=== PATIENT | male | born 1935 | race Two or more races ===

== ENCOUNTER → 2016-10-29 | Outpatient (CLI) | payer MEDICARE, BC ==
--- NOTE | 2016-10-29 10:38 | MR ---
EXAMINATION TYPE: MR brain and iac wo/w con DATE OF EXAM: 10/29/2016 9:40 AM COMPARISON: Prior MRI IAC January 26, 2011. HISTORY: Acoustic neuroma, left hearing loss. TECHNIQUE: Multiplanar, multisequence images of the internal auditory canals, brain and brainstem are all perfor med without and with IV contrast, utilizing 16 mL intravenous MultiHance . FINDINGS: Diffusion weighted images demonstrate no evidence of a recent infarct or other diffusion ab normality. There is no worrisome extra-axial fluid collection. There is ventricular and sulcal promi nence consistent with mild age-related cerebral atrophy with some progression from 2011 study felt pr esent. There are scattered foci of T2 hyperintensity seen throughout the white matter bilaterally. Le sions are nonspecific in appearance and distribution but are felt on basis of product of chronic smal l vessel ischemic change. Progression in size and number of lesions from 2011 exam is present. There is old lacunar infarct right aceves radiata on axial image 21 noted. This is also new from 2011 exam. Midline structures demonstrate normal morphology. The craniocervical junction appears within normal limits. Post contrast images demonstrate no abnormal enhancement. The dural venous sinuses appear pa tent. The visualized sinuses are clear and the globes are intact. There is increased fluid signal bilateral mastoid air cells, right slightly more prominent than left, this is new from prior exam. The vestibulocochlear complexes appear symmetric and felt within normal limits. There is no suspicious enhancing cerebellopontine angle mass identified bilaterally. IMPRESSION: 1. 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 2. Possible new bilateral mastoiditis, clinical correlation advised. No suspicious enhancing mass is seen.
== END | disposition home or self-care (01) ==
LOC: RADMRIMAIN 08:32
PROVIDERS: ATTEND Otolaryngology
DX: D33.3 Benign neoplasm of cranial nerves (principal); G31.9 Degenerative disease of nervous system, unspecified; I67.82 Cerebral ischemia
CPT/HCPCS: 70553; A9577

== ENCOUNTER 2018-03-25 10:28 | Inpatient (IN) | payer MEDICARE, BC ==
[2018-03-25] MEDS ORDERED: SODIUM CHLORIDE 0.9% 500 ML IV STA (10:59)
--- NOTE | 2018-03-25 11:04 | ED ---
General Adult HPI - General Chief complaint: Nausea/Vomiting/Diarrhea Stated complaint: Diarrhea/Vomiting/Weakness Time Seen by Provider: 03/25/18 10:51 Source: patient, RN notes reviewed, old records reviewed Mode of arrival: ambulatory Limitations: no limitations - History of Present Illness Initial comments: 83-year-old male presents for evaluation of diarrhea and increased weakness. Patient states that over the past 2 days he's had proximally 6 episodes of diarrhea. He did take an Imodium yesterday and again this morning. His diarrhea has improved somewhat. He also has had some nausea with no vomiting. Denies any abdominal pain. He has had some low back pain which is been relieved by [id number] pain patch. No chest pain. Patient does have baseline shortness of breath secondary to pulmonary fibrosis. He has had increasing cough and shortness of breath according to his . Cough is productive of white sputum. He has home oxygen which she uses at night. Diarrhea is brown, not watery, nonbloody. No recent travel. No recent antibiotics. Patient is on Rituxan for rheumatoid arthritis and pulmonary fibrosis. Last infusion was approximately 2 weeks ago. - Related Data Home Medications Medication Instructions Recorded Confirmed Allopurinol [Zyloprim] 300 mg PO DAILY 03/25/18 03/25/18 Aspirin EC [Ecotrin Low Dose] 81 mg PO DAILY 03/25/18 03/25/18 Cholecalciferol [Vitamin D3] 1,000 unit PO DAILY 03/25/18 03/25/18 Clopidogrel [Plavix] 75 mg PO DAILY 03/25/18 03/25/18 Lovastatin [Mevacor] 40 mg PO PC-SUPPER 03/25/18 03/25/18 Metoprolol Tartrate [Lopressor] 12.5 mg PO BID 03/25/18 03/25/18 Multivit-Min/FA/Lycopen/Lutein 1 tab PO DAILY 03/25/18 03/25/18 [Centrum Silver Tablet] Pantoprazole [Protonix] 40 mg PO DAILY 03/25/18 03/25/18 Rituxan 500mg/50ml 1 dose IV Q6M 03/25/18 03/25/18 Vit C/E/Zn/Coppr/Lutein/Zeaxan 1 cap PO DAILY 03/25/18 03/25/18 [Preservision Areds 2 Softgel] predniSONE 5 mg PO DAILY 03/25/18 03/25/18 Allergies Allergy/AdvReac Type Severity Reaction Status Date / Time No Known Allergies Allergy Verified 03/25/18 10:51 Review of Systems ROS Statement: Those systems with pertinent positive or pertinent negative responses have been documented in the HPI. ROS Other: All systems not noted in ROS Statement are negative. Past Medical History Past Medical History: GERD/Reflux, Hyperlipidemia, Hypertension, Rheumatoid Arthritis (RA) Additional Past Medical History / Comment(s): Gout History of Any Multi-Drug Resistant Organisms: None Reported Past Surgical History: No Surgical Hx Reported Past Psychological History: No Psychological Hx Reported Smoking Status: Current every day smoker Past Alcohol Use History: Occasional Past Drug Use History: None Reported General Exam Limitations: no limitations General appearance: alert, in no apparent distress Head exam: Present: atraumatic, normocephalic Eye exam: Present: normal appearance, PERRL, EOMI ENT exam: Present: normal exam Neck exam: Present: normal inspection. Absent: tenderness, meningismus Respiratory exam: Present: normal lung sounds bilaterally. Absent: respiratory distress, wheezes Cardiovascular Exam: Present: regular rate, normal rhythm GI/Abdominal exam: Present: soft, normal bowel sounds. Absent: distended, tenderness, guarding, rebound, rigid, pulsatile mass Extremities exam: Present: normal inspection, normal capillary refill, other (2 + DP pulses bilaterally). Absent: pedal edema Back exam: Present: normal inspection, tenderness (Very mild lumbar tenderness to palpation.) Neurological exam: Present: alert, CN II-XII intact. Absent: motor sensory deficit Psychiatric exam: Present: normal affect, normal mood Skin exam: Present: warm, dry, intact. Absent: cyanosis, diaphoretic Course Vital Signs 03/25/18 03/25/18 03/25/18 10:38 12:42 13:12 Temperature 97.5 F L Pulse Rate 68 70 65 Respiratory 20 16 18 Rate Blood Pressure 111/74 99/55 111/57 O2 Sat by Pulse 98 95 95 Oximetry 03/25/18 13:45 Temperature 97.1 F L Pulse Rate Respiratory Rate Blood Pressure O2 Sat by Pulse Oximetry Medical Decision Making - Medical Decision Making 83-year-old male history of ulnar fibrosis and rheumatoid arthritis presenting with chief complaint of diarrhea and cough with sputum production and mild dyspnea. Laboratory studies are obtained which do show significantly elevated white blood cell count of 34,000. This is new compared to records from [facility] in December 2017 with a white blood cell count of 13, 000. Initial concern is for C. difficile although Gertrude is negative. Urinalysis showed no signs of infection. Chest x-ray does show primary fibrosis with concern for underlying pneumonia. CT of the abdomen is obtained that shows fusiform dilatation of the aorta at 3 cm and right iliac at 2.2 cm. No leak or dissection. No intra-abdominal infection. Given the patient's elevated white blood cell count, and the fact that he is immunosuppressed on Rituxan he will be admitted for suspicion of pneumonia. He received broad- spectrum antibiotics. Case discussed with Dr. Ortega who will accept admission , pulmonology will be placed on consult. - Lab Data Result diagrams: 03/25/18 11:12 03/25/18 11:12 Lab Results 03/25/18 03/25/18 03/25/18 Range/Units 11:12 11:12 12:16 WBC 34.4 H* (3.8-10.6) k/uL RBC 4.61 (4.30-5.90) m/uL Hgb 14.9 (13.0-17.5) gm/dL Hct 44.7 (39.0-53.0) % MCV 97.0 (80.0-100.0) fL MCH 32.4 (25.0-35.0) pg MCHC 33.4 (31.0-37.0) g/dL RDW 14.6 (11.5-15.5) % Plt Count 189 (150-450) k/uL Neutrophils % (Manual) 90 % Band Neutrophils % 2 % Lymphocytes % (Manual) 2 % Monocytes % (Manual) 7 % Neutrophils # (Manual) 31.60 H (1.3-7.7) k/uL Lymphocytes # (Manual) 0.69 L (1.0-4.8) k/uL Monocytes # (Manual) 2.41 H (0-1.0) k/uL Nucleated RBCs 0 (0-0) /100 WBC Manual Slide Review Performed RBC Morphology Normal Sodium 138 (137-145) mmol/L Potassium 5.3 H (3.5-5.1) mmol/L Chloride 97 L (98-107) mmol/L Carbon Dioxide 28 (22-30) mmol/L Anion Gap 13 mmol/L BUN 29 H (9-20) mg/dL Creatinine 0.99 (0.66-1.25) mg/dL Est GFR (CKD-EPI)AfAm 82 (>60 ml/min/1.73 sqM) Est GFR (CKD-EPI)NonAf 71 (>60 ml/min/1.73 sqM) Glucose 137 H (74-99) mg/dL Calcium 9.1 (8.4-10.2) mg/dL Total Bilirubin 1.5 H (0.2-1.3) mg/dL AST 30 (17-59) U/L ALT 31 (21-72) U/L Alkaline Phosphatase 98 (38-126) U/L Total Protein 6.1 L (6.3-8.2) g/dL Albumin 3.8 (3.5-5.0) g/dL Lipase 10 L (23-300) U/L Urine Color Urine Appearance (Clear) Urine pH (5.0-8.0) Ur Specific Egan (1.001-1.035) Urine Protein (Negative) Urine Glucose (UA) (Negative) Urine Ketones (Negative) Urine Blood (Negative) Urine Nitrite (Negative) Urine Bilirubin (Negative) Urine Urobilinogen (<2.0) mg/dL Ur Leukocyte Esterase (Negative) Urine WBC (0-5) /hpf Urine Mucus (None) /hpf C. difficile (EIA) Intrp Negative (Negative) 03/25/18 Range/Units 13:45 WBC (3.8-10.6) k/uL RBC (4.30-5.90) m/uL Hgb (13.0-17.5) gm/dL Hct (39.0-53.0) % MCV (80.0-100.0) fL MCH (25.0-35.0) pg MCHC (31.0-37.0) g/dL RDW (11.5-15.5) % Plt Count (150-450) k/uL Neutrophils % (Manual) % Band Neutrophils % % Lymphocytes % (Manual) % Monocytes % (Manual) % Neutrophils # (Manual) (1.3-7.7) k/uL Lymphocytes # (Manual) (1.0-4.8) k/uL Monocytes # (Manual) (0-1.0) k/uL Nucleated RBCs (0-0) /100 WBC Manual Slide Review RBC Morphology Sodium (137-145) mmol/L Potassium (3.5-5.1) mmol/L Chloride (98-107) mmol/L Carbon Dioxide (22-30) mmol/L Anion Gap mmol/L BUN (9-20) mg/dL Creatinine (0.66-1.25) mg/dL Est GFR (CKD-EPI)AfAm (>60 ml/min/1.73 sqM) Est GFR (CKD-EPI)NonAf (>60 ml/min/1.73 sqM) Glucose (74-99) mg/dL Calcium (8.4-10.2) mg/dL Total Bilirubin (0.2-1.3) mg/dL AST (17-59) U/L ALT (21-72) U/L Alkaline Phosphatase (38-126) U/L Total Protein (6.3-8.2) g/dL Albumin (3.5-5.0) g/dL Lipase (23-300) U/L Urine Color Yellow Urine Appearance Clear (Clear) Urine pH 5.5 (5.0-8.0) Ur Specific Egan 1.022 (1.001-1.035) Urine Protein 1+ H (Negative) Urine Glucose (UA) Negative (Negative) Urine Ketones Negative (Negative) Urine Blood Negative (Negative) Urine Nitrite Negative (Negative) Urine Bilirubin Negative (Negative) Urine Urobilinogen <2.0 (<2.0) mg/dL Ur Leukocyte Esterase Negative (Negative) Urine WBC 1 (0-5) /hpf Urine Mucus Rare H (None) /hpf C. difficile (EIA) Intrp (Negative) Disposition Clinical Impression: HCAP (healthcare-associated pneumonia), Leukocytosis Disposition: ADMITTED IP TO THIS [facility] Condition: Stable Is patient prescribed a controlled substance at d/c from ED?: No Referrals: Adolfo Burton MD [Primary Care Provider] - 1-2 days Decision to Admit Reason: Admit from EC Decision Date: 03/25/18 Decision Time: 15:43
[2018-03-25 11:30] LABS: HCT 44.7 % (39.0-53.0); HGB 14.9 gm/dL (13.0-17.5); MCH 32.4 pg (25.0-35.0); MCHC 33.4 g/dL (31.0-37.0); Mean Platelet Volume 6.8; Platelet Count 189 k/uL (150-450); RBC 4.61 m/uL (4.30-5.90); RDW 14.6 % (11.5-15.5)
[2018-03-25 11:34] LABS: WBC 34.4 k/uL (3.8-10.6)
[2018-03-25 11:43] LABS: Albumin 3.8 g/dL (3.5-5.0); Band Neutrophils % 2 %; Calcium 9.1 mg/dL (8.4-10.2); Lymphocytes # (M) 0.69 k/uL (1.0-4.8); Monocytes # (M) 2.41 k/uL (0-1.0); Neutrophils % (M) 90 %; Nucleated Red Blood Cells 0 /100 WBC (0-0); Potassium 5.3 mmol/L (3.5-5.1); Total Bilirubin 1.5 mg/dL (0.2-1.3); Total Cells Counted 200; Total Protein 6.1 g/dL (6.3-8.2)
--- NOTE | 2018-03-25 11:43 | XR ---
EXAMINATION TYPE: XR KUB DATE OF EXAM: 03/25/2018 COMPARISON: NONE HISTORY: Nausea and pain TECHNIQUE: One view abdominal series FINDINGS: The osseous structures are intact. The bowel gas pattern is nonspecific. Chronic interstitial lung d isease stable from chest x-ray. Previous surgery in the sternum. Hypertrophic degenerative change the spine. Surgical change overlying the left groin. Arthropathy of the hips. Diffuse osteopenia noted. Hypertrophic and degenerative change of the spine. IMPRESSION: 1. Nonspecific abdomen. 2. Correlate for pulmonary fibrosis.
[2018-03-25 13:58] LABS: Appearance,Urine Clear (Clear); Bilirubin,Urine Negative (Negative); Blood,Urine Negative (Negative); Color,Urine Yellow; Glucose,Urine (UA) Negative (Negative); Ketones,Urine Negative (Negative); Leukocyte Esterase,Urine Negative (Negative); Mucus,Urine Rare /hpf; Nitrite,Urine Negative (Negative); PH, Urine 5.5 (5.0-8.0); Protein,Urine 1+ (Negative); Specific Gravity,Urine 1.022 (1.001-1.035); Urobilinogen,Urine <2.0 mg/dL (<2.0); WBC,Urine 1 /hpf (0-5)
--- NOTE | 2018-03-25 14:31 | CT ---
EXAMINATION TYPE: CT abdomen pelvis w con DATE OF EXAM: 03/25/2018 COMPARISON: NONE INDICATION: Nausea, vomiting, and diarrhea DLP: 578.1 mGycm, Automated exposure control for dose reduction was used. CONTRAST: 100 mL of Isovue 300. Study performed without Oral Contrast TECHNIQUE: Axial images were obtained from above the diaphragm to the pubic rami in the axial plane a t 5 mm thick sections. Reconstructed images are reviewed on the computer in the coronal plane. FINDINGS: Limited CT sections are obtained the lung bases. Changes of pulmonary fibrosis throughout the bilate ral lung bases. Some pericardial calcification is present. Some coronary artery calcification is pres ent.. CT ABDOMEN: Liver: Normal Spleen: Normal Pancreas: Atrophic Adrenal glands: The adrenal glands are normal. Gallbladder: Normal Kidneys: No masses are evident. No hydronephrosis is present. No cysts are present. Delayed images were obtained through the kidneys, which remain unremarkable. Aorta: There is some fusiform prominence of the mid abdominal aorta measuring 3.0 cm. This is below t he level the renal arteries and terminates above the bifurcation. 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 Inferior vena cava: Normal. CT PELVIS: Loops of bowel within the abdomen and pelvis are normal. Study is without oral contrast causing l imitation. Appendix: Not visualized. No suspicious inflammatory changes or dilated tubular structures are eviden t. Urinary bladder: Decompressed. This has limited evaluation. Genitourinary structures: Prostate is slightly prominent. Osseous structures: No suspicious lytic or sclerotic lesions. IMPRESSIONS: 1. Pulmonary fibrosis at the bilateral lung bases. 2. Pancreas atrophy. 3. Fusiform prominence of the mid abdominal aorta measuring 3.0 cm. 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
--- NOTE | 2018-03-25 14:36 | XR ---
EXAMINATION TYPE: XR chest 2V DATE OF EXAM: 03/25/2018 COMPARISON: 04/15/2017 TECHNIQUE: PA and lateral views submitted. 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 Pulmonary vasculature slightly prominent. Heart size is normal. There is diffuse increased lung markings compatible pulmonary fibrosis. On the lateral pr ojection there is a small posterior pleural effusion or pleural thickening. Pleural-based thickening on the right with areas of subsegmental consolidation appears stable from th e prior exam. Apical asymmetric density along the upper margin of the right upper lobe is also seen. IMPRESSION: 1. Diffuse chronic pleural-parenchymal changes are similar to the prior exam and most suggestive of p ulmonary fibrosis. 2. There are areas of consolidation involving the medial margin of the right upper lobe which appears stable to prior exam as well as along the periphery of the right upper lobe. Underlying mass or pneu monia not entirely excluded correlate clinically.
[2018-03-25] MEDS ORDERED: ACETAMINOPHEN TAB 325 MG TAB PO PRN (15:36)
[2018-03-25] MEDS ORDERED: NALOXONE 0.4 MG/ML 1 ML VIAL IV PRN (15:36)
[2018-03-25] MEDS ORDERED: VANCOMYCIN IV PER PHARMACY 1 EACH MISC MISCELLANE PRN (15:36)
[2018-03-25] MEDS ORDERED: CEFEPIME 2 GM in SODIUM CHLORIDE 0.9% 50 ML IVPB STA (15:53)
[2018-03-25] MEDS ORDERED: VANCOMYCIN 1,500 MG in SODIUM CHLORIDE 0.9% 250 ML IVPB STA (16:02)
--- NOTE | 2018-03-25 17:27 | P.HPIM ---
History of Present Illness H&P Date: 03/25/18 Chief Complaint: Diarrhea Patient is a 83-year-old male with a known history of pulmonary fibrosis on home oxygen and prednisone, GERD/Reflux, Hyperlipidemia, Hypertension, Rheumatoid Arthritis (RA) came to the hospital complaints of diarrhea and increased weakness. Patient says that he had diarrhea hold the yesterday and is getting better today and felt very weak. Approximately had 6 episodes of diarrhea. He did take an Imodium yesterday and again this morning. His diarrhea has improved somewhat. He also has had some nausea with no vomiting. Denies any abdominal pain. He has had some low back pain which is been relieved by [id number] pain patch. No chest pain. Patient does have baseline shortness of breath secondary to pulmonary fibrosis. He has had increasing cough and shortness of breath according to his . Cough is productive of white sputum. denied any fever or chills. Diarrhea is brown, not watery, nonbloody. No recent travel. No recent antibiotics. Patient is on Rituxan for rheumatoid arthritis and pulmonary fibrosis. Last infusion was approximately 2 weeks ago. KUB x-ray showed nonspecific abdomen and correlate for pulmonary fibrosis Chest x-ray showed diffuse chronic pleural parenchymal changes are similar to the prior exam and most suggestive of pulmonary fibrosis. There are areas of consolidation involving the medial margin of the right upper lobe which appears stable to prior exam as well as along the periphery of the right upper lobe underlying mass or pneumonia not entirely excluded. 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 C. diff negative WBC count 34.4. Recent WBC count at the [facility] was at 13 Review of Systems Constitutional: Patient denies any fever or chills . No generalized weakness or weight loss. Abdomen: Patient denied nausea vomiting and abdominal pain. Patient did have diarrhea but improved now Cardiovascular: Patient denies any chest pain or short of breath no palpitations. Respiratory: Cough with whitish sputum production and slightly increased shortness of breath compared to baseline. Neurologic: Patient denied any numbness or tingling headache. Musculoskeletal: Patient denies any complaints of joint swelling or deformity. Skin: Negative Psychiatric: Negative Endocrine: No heat or cold intolerance. No recent weight gain. Genitourinary: No dysuria or hematuria. All other 14 point ROS negative except the above Past Medical History Past Medical History: GERD/Reflux, Hyperlipidemia, Hypertension, Rheumatoid Arthritis (RA) Additional Past Medical History / Comment(s): Gout History of Any Multi-Drug Resistant Organisms: None Reported Past Surgical History: No Surgical Hx Reported Past Psychological History: No Psychological Hx Reported Smoking Status: Current every day smoker Past Alcohol Use History: Occasional Past Drug Use History: None Reported Medications and Allergies Home Medications Medication Instructions Recorded Confirmed Type Allopurinol [Zyloprim] 300 mg PO DAILY 03/25/18 03/25/18 History Aspirin EC [Ecotrin Low Dose] 81 mg PO DAILY 03/25/18 03/25/18 History Cholecalciferol [Vitamin D3] 1,000 unit PO DAILY 03/25/18 03/25/18 History Clopidogrel [Plavix] 75 mg PO DAILY 03/25/18 03/25/18 History Lovastatin [Mevacor] 40 mg PO PC-SUPPER 03/25/18 03/25/18 History Metoprolol Tartrate [Lopressor] 12.5 mg PO BID 03/25/18 03/25/18 History Multivit-Min/FA/Lycopen/Lutein 1 tab PO DAILY 03/25/18 03/25/18 History [Centrum Silver Tablet] Pantoprazole [Protonix] 40 mg PO DAILY 03/25/18 03/25/18 History Rituxan 500mg/50ml 1 dose IV Q6M 03/25/18 03/25/18 History Vit C/E/Zn/Coppr/Lutein/Zeaxan 1 cap PO DAILY 03/25/18 03/25/18 History [Preservision Areds 2 Softgel] predniSONE 5 mg PO DAILY 03/25/18 03/25/18 History Allergies Allergy/AdvReac Type Severity Reaction Status Date / Time No Known Allergies Allergy Verified 03/25/18 10:51 Physical Exam Vitals: Vital Signs Temp Pulse Resp BP Pulse Ox 03/25/18 16:06 97.4 F L 72 18 122/59 96 03/25/18 13:45 97.1 F L 03/25/18 13:12 65 18 111/57 95 03/25/18 12:42 70 16 99/55 95 03/25/18 10:38 97.5 F L 68 20 111/74 98 Intake and Output 03/25/18 03/25/18 03/25/18 06:59 14:59 22:59 Other: Weight 79.379 kg PHYSICAL EXAMINATION: Patient is lying in the bed comfortably, no acute distress, awake alert and oriented.. HEENT: Normocephalic. Neck is supple. Pupils reactive. Nostrils clear. Oral cavity is moist. Ears reveal no drainage. Neck reveals no JVD, carotid bruits, or thyromegaly. CHEST EXAMINATION: Trachea is central. Symmetrical expansion. Bilateral fine diffuse crackles. Lung mejia clear to auscultation and percussion. CARDIAC: Normal S1, S2 with no gallops. No murmurs ABDOMEN: Soft. Bowel sounds normal. No organomegaly. No abdominal bruits. Extremities: reveal no edema. No clubbing or cyanosis Neurologically awake, alert, oriented x3 with well-coordinated movements. No focal deficits noted. Hard of hearing on the left side. Skin: No rash or skin lesions. Psychiatric: Cooperative. Nonsuicidal Musculoskeletal: No joint swelling or deformity. Normal range of motion. Results CBC & Chem 7: 03/25/18 11:12 03/25/18 11:12 Labs: Abnormal Lab Results - Last 24 Hours (Table) 03/25/18 03/25/18 03/25/18 Range/Units 11:12 11:12 13:45 WBC 34.4 H* (3.8-10.6) k/uL Neutrophils # (Manual) 31.60 H (1.3-7.7) k/uL Lymphocytes # (Manual) 0.69 L (1.0-4.8) k/uL Monocytes # (Manual) 2.41 H (0-1.0) k/uL Potassium 5.3 H (3.5-5.1) mmol/L Chloride 97 L (98-107) mmol/L BUN 29 H (9-20) mg/dL Glucose 137 H (74-99) mg/dL Total Bilirubin 1.5 H (0.2-1.3) mg/dL Total Protein 6.1 L (6.3-8.2) g/dL Lipase 10 L (23-300) U/L Urine Protein 1+ H (Negative) Urine Mucus Rare H (None) /hpf Thrombosis Risk Factor Assmnt - DVT/VTE Prophylaxis DVT/VTE Prophylaxis: Pharmacologic Prophylaxis ordered Assessment and Plan Assessment: Shortness of breath with leukocytosis and evidence of pulmonary consolidation and underlying fibrosis. Suspected pneumonia hcap Acute Diarrhea. Rule out C. diff Significant leukocytosis 34.4 GERD Hyperlipidemia Pulmonary fibrosis with chronic hypoxic respiratory failure. Oxygen and steroid dependent Hypertension Rheumatoid arthritis on scheduled infusion every 6 months DVT prophylaxis Plan: Patient will be continued on antibiotics for pneumonia with vancomycin and cefepime. Continue with the oxygen therapy and monitor closely. Continue the breathing treatments and home medications. Pulmonary was consulted. Diarrhea is improving. Further recommendations based on the clinical course. Discussed with the family at bedside. Time with Patient: Greater than 30
[2018-03-25] MEDS: ATORVASTATIN 10 MG TAB PO SCH (18:03)
[2018-03-25] MEDS: METOPROLOL TARTRATE 12.5 MG TAB PO SCH (21:06)
[2018-03-26] MEDS: CEFEPIME 2 GM in SODIUM CHLORIDE 0.9% 50 ML IVPB SCH ×4 (01:01→23:15)
[2018-03-26] MEDS: HEPARIN SODIUM,PORCINE 5,000 UNIT/ML 1 ML VIAL SQ SCH ×4 (01:02→23:15)
[2018-03-26 07:17] LABS: Basophils % (A) 0 %; Eosinophils # (A) 0.4 k/uL (0-0.7); Eosinophils % (A) 2 %; HCT 40.4 % (39.0-53.0); HGB 13.5 gm/dL (13.0-17.5); Lymphocytes # (A) 1.1 k/uL (1.0-4.8); Lymphocytes % (A) 6 %; MCH 32.2 pg (25.0-35.0); MCHC 33.4 g/dL (31.0-37.0); MCV 96.4 fL (80.0-100.0); Mean Platelet Volume 6.4; Monocytes # (A) 0.8 k/uL (0-1.0); Monocytes % (A) 4 %; Neutrophils # (A) 16.8 k/uL (1.3-7.7); Neutrophils % (A) 87 %; Platelet Count 179 k/uL (150-450); RBC 4.19 m/uL (4.30-5.90); RDW 14.5 % (11.5-15.5); WBC 19.2 k/uL (3.8-10.6)
[2018-03-26 07:30] LABS: Albumin 3.2 g/dL (3.5-5.0); Calcium 8.7 mg/dL (8.4-10.2); Potassium 4.5 mmol/L (3.5-5.1); Total Bilirubin 0.6 mg/dL (0.2-1.3); Total Protein 5.4 g/dL (6.3-8.2)
[2018-03-26] MEDS: ASPIRIN 81 MG PO SCH (08:14)
[2018-03-26] MEDS: CHOLECALCIFEROL 1,000 UNIT TAB PO SCH (08:14)
[2018-03-26] MEDS: PANTOPRAZOLE 40 MG TABLET PO SCH (08:14)
[2018-03-26] MEDS: CLOPIDOGREL 75 MG TAB PO SCH (08:14)
[2018-03-26] MEDS: ALLOPURINOL 300 MG TAB PO SCH (08:14)
[2018-03-26] MEDS: predniSONE 5 MG TAB PO SCH (08:14)
[2018-03-26] MEDS: METOPROLOL TARTRATE 12.5 MG TAB PO SCH ×2 (08:14→23:14)
[2018-03-26] MEDS: VANCOMYCIN 1,500 MG in SODIUM CHLORIDE 0.9% 250 ML IVPB SCH (08:54)
[2018-03-26 11:32] VITALS: BMI 25.1
--- NOTE | 2018-03-26 11:44 | CT ---
EXAMINATION TYPE: CT chest wo con DATE OF EXAM: 03/26/2018 COMPARISON: NONE HISTORY: Pneumonia, ILD CT DLP: 292.3 mGycm. Automated Exposure Control for Dose Reduction was Utilized. TECHNIQUE: CT scan of the thorax is performed without IV contrast. FINDINGS: LUNGS: There is peripheral basilar predominant subpleural reticulation, interlobular septal thickenin g, and honeycombing with scattered bulla and blebs indicative of underlying pulmonary fibrosis. Mild cylindrical basilar bronchiectasis is also seen. Elongated scarring is noted along the left interloba r fissure. Subpleural consolidations in the peripheral and medial right upper lobe may represent acut e superimposed infectious or inflammatory etiology although comparison with prior would be beneficial . Pleural parenchymal scarring is noted at the lung apices, right greater than left. There is no foca l mass identified. MEDIASTINUM: Calcification of the pericardium suggests prior pericarditis. Correlate for restrictive cardiomyopathy. Enlargement of the main pulmonary artery suggests pulmonary arterial hypertension. Se chelo three-vessel coronary artery calcifications are present. Ascending thoracic aorta is within norm al limits of size measuring 3.6 cm. Prior coronary artery bypass grafting is seen. There is a small h iatal hernia in the posterior mediastinum. Lack of IV contrast is noted to limit evaluation for media stinal and especially hilar adenopathy. There are no definitive greater than 1 cm hilar or mediastina l lymph nodes. No pericardial effusion. OTHER: Slightly hyperdense bilateral renal calyces and ureters relates to recently administered contr ast from the exam of 03/25/2018. 6 mm nonobstructing left renal calculus is incidentally seen. 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 IMPRESSION: 1. Advanced pulmonary fibrosis with multifocal subpleural right upper lung consolidations that could represent acute infectious or inflammatory etiology. Comparison with any prior imaging would be of be nefit. No focal mass is identified. 2. Pericardial calcifications likely from prior pericarditis. Correlate for restrictive cardiomyopath y. 3. Prior coronary artery bypass grafting although there remains severe coronary artery calcifications .
[2018-03-26] MEDS: MULTIVITAMINS, THERA 1 EACH TAB PO SCH (13:12)
[2018-03-26] MEDS: VIT A,C & E-LUTEIN-MINERALS 1 EACH TAB PO SCH (13:12)
--- NOTE | 2018-03-26 13:23 | P.CNPUL ---
History of Present Illness Consult date: 03/26/18 Requesting physician: Blessing Ortega Reason for consult: abnormal CXR/CT Chief complaint: Diarrhea History of present illness: This is a very pleasant 83-year-old gentleman who follows with Dr. Burton as his primary care physician. He has a history of hypertension, gastroesophageal reflux disease, hyperlipidemia, rheumatoid arthritis, gout and significant pulmonary fibrosis. He follows with Dr. Gupta in our office for the same. He receives Rituxan infusions for his arthritis. Last dose 2 weeks ago. He is also maintained on prednisone 5 mg daily. He also recently had some skin cancer removed from the right side of his nose and was on antibiotic for approximately 7 days. He presented here to the emergency room yesterday with complaints of ongoing issues with diarrhea and increasing weakness. Initially started 2 days prior to his arrival with at least 6 episodes of diarrhea. He did try Imodium 2 with no significant improvement. Computed tomography scan of the abdomen revealed loops of bowel within the abdomen and pelvis within normal limits. There was noted pancreas atrophy. There is also noted fusiform prominence of the mid abdominal aorta measuring 3.0 cm. 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 Noted pulmonary fibrosis in the lung bases. Initial white count 34.4. C. difficile screen was negative. Creatinine stable at 0.9. Patient was seen today in consultation on the regular medical floor. Computed tomography scan of the chest did reveal significant pulmonary fibrosis. Not currently on Ofev or Esbriet. He currently denies any worsening shortness of breath, cough or congestion. He is maintaining good O2 saturations in the 90s on room air. She's been afebrile. Hemodynamically stable. He was initiated on vancomycin and cefepime. White count 19.2. Creatinine 0.95. Review of Systems Constitutional: Reports poor appetite, Reports weakness Eyes: denies blurred vision, denies decreased vision Ears: bilateral: decreased hearing Ears, nose, mouth and throat: Denies headache, Denies sore throat Cardiovascular: Denies chest pain, Denies shortness of breath Respiratory: Reports cough, Reports dyspnea, Reports home oxygen Gastrointestinal: Reports abdominal pain, Reports diarrhea Genitourinary: Reports as per HPI Musculoskeletal: Reports limitation of motion, Reports myalgias Integumentary: Denies pruritus, Denies rash Neurological: Denies numbness, Denies weakness Psychiatric: Denies anxiety, Denies depression Endocrine: Denies fatigue, Denies weight change Past Medical History Past Medical History: GERD/Reflux, Hyperlipidemia, Hypertension, Rheumatoid Arthritis (RA) Additional Past Medical History / Comment(s): Gout History of Any Multi-Drug Resistant Organisms: None Reported Past Surgical History: No Surgical Hx Reported Additional Past Surgical History / Comment(s): triple vessel cabg, skin cancer removed nose and lt shoulder, thom cataracts. Past Anesthesia/Blood Transfusion Reactions: No Reported Reaction Smoking Status: Former smoker - Past Family History Mother Additional Family Medical History / Comment(s): pulmonary fibrosis Father Family Medical History: Myocardial Infarction ([place]) Medications and Allergies Home Medications Medication Instructions Recorded Confirmed Type Allopurinol [Zyloprim] 300 mg PO DAILY 03/25/18 03/25/18 History Aspirin EC [Ecotrin Low Dose] 81 mg PO DAILY 03/25/18 03/25/18 History Cholecalciferol [Vitamin D3] 1,000 unit PO DAILY 03/25/18 03/25/18 History Clopidogrel [Plavix] 75 mg PO DAILY 03/25/18 03/25/18 History Lovastatin [Mevacor] 40 mg PO PC-SUPPER 03/25/18 03/25/18 History Metoprolol Tartrate [Lopressor] 12.5 mg PO BID 03/25/18 03/25/18 History Multivit-Min/FA/Lycopen/Lutein 1 tab PO DAILY 03/25/18 03/25/18 History [Centrum Silver Tablet] Pantoprazole [Protonix] 40 mg PO DAILY 03/25/18 03/25/18 History Rituxan 500mg/50ml 1 dose IV Q6M 03/25/18 03/25/18 History Vit C/E/Zn/Coppr/Lutein/Zeaxan 1 cap PO DAILY 03/25/18 03/25/18 History [Preservision Areds 2 Softgel] predniSONE 5 mg PO DAILY 03/25/18 03/25/18 History Allergies Allergy/AdvReac Type Severity Reaction Status Date / Time No Known Allergies Allergy Verified 03/25/18 10:51 Physical Exam Vitals: Vital Signs Temp Pulse Pulse Resp BP BP Pulse Ox 03/26/18 05:53 97.5 F L 76 20 116/56 95 06/08/18 20:25 97.5 F L 68 18 110/55 94 L 03/25/18 16:06 97.4 F L 72 18 122/59 96 03/25/18 13:45 97.1 F L 03/25/18 13:12 65 18 111/57 95 Intake and Output 03/25/18 03/26/18 03/26/18 22:59 06:59 14:59 Intake Total 50 Balance 50 Intake: Intake, IV Titration 50 Amount Cefepime 2 gm In Sodium 50 Chloride 0.9% 50 ml @ 100 mls/hr IVPB Q8HR [facility] Rx# :[id number] Other: Voiding Method Toilet Toilet Toilet # Voids 1 2 Weight 79.379 kg - Constitutional General appearance: average body habitus - EENT Eyes: EOMI, PERRLA ENT: hard of hearing Ears: bilateral: normal - Neck Neck: normal ROM Carotids: bilateral: upstroke normal Thyroid: bilateral: normal size - Respiratory Respiratory: bilateral: diminished, rales - Cardiovascular Rhythm: regular Heart sounds: normal: S1, S2 - Gastrointestinal General gastrointestinal: normal bowel sounds Localized gastrointestinal: tender: diffuse - Integumentary Integumentary: normal turgor - Neurologic Neurologic: CNII-XII intact - Musculoskeletal Musculoskeletal: generalized weakness - Psychiatric Psychiatric: A&O x's 3, intact judgment & insight Results - Laboratory Findings CBC and BMP: 03/26/18 06:55 03/26/18 06:55 Abnormal lab findings: Abnormal Labs 03/25/18 03/25/18 03/25/18 11:12 11:12 13:45 WBC 34.4 H* RBC Neutrophils # Neutrophils # (Manual) 31.60 H Lymphocytes # (Manual) 0.69 L Monocytes # (Manual) 2.41 H Potassium 5.3 H Chloride 97 L BUN 29 H Glucose 137 H Total Bilirubin 1.5 H Total Protein 6.1 L Albumin Lipase 10 L Urine Protein 1+ H Urine Mucus Rare H 03/26/18 03/26/18 06:55 06:55 WBC 19.2 H RBC 4.19 L Neutrophils # 16.8 H Neutrophils # (Manual) Lymphocytes # (Manual) Monocytes # (Manual) Potassium Chloride BUN 23 H Glucose 105 H Total Bilirubin Total Protein 5.4 L Albumin 3.2 L Lipase Urine Protein Urine Mucus - Diagnostic Findings Chest x-ray: image reviewed CT scan - chest: image reviewed Assessment and Plan Assessment: Impression: #1 Acute diarrhea of unclear etiology. C. difficile screen negative. The patient had been on antibiotics 2-3 weeks ago secondary to skin cancer removal.. #2 Leukocytosis secondary to above. #3 Chronic cough and dyspnea secondary to pulmonary fibrosis. On home oxygen at night. #4 Rheumatoid arthritis. Receiving Rituxan infusions, last dose 2 weeks ago. #5 Gastroesophageal reflux disease. #6 Hypertension. #7 Hyperlipidemia. #8 History of gout. Plan: The patient was seen and evaluated by Dr. Cannon. Chest x-ray, labs and computed tomography scan of the chest wall reviewed. The patient is immunocompromised. Cannot specifically rule out any underlying pneumonia. The patient does not have clinical symptoms of pneumonia. His pulmonary fibrosis is being followed by Dr. Gupta in our office. No diarrhea since early this morning. We will continue to follow make further recommendations based on his clinical status. I, the cosigning physician, performed a history & physical examination of the patient. Lungs sounds with coarse crackles in the bilateral posterior bases. Maintaining good O2 saturations in the 90s on room air. I discussed the assessment and plan of care with my nurse practitioner, Katarzyna eClis. I attest to the above note as dictated by her.t Time with Patient: Greater than 30
[2018-03-26] MEDS: ATORVASTATIN 10 MG TAB PO SCH (19:27)
--- NOTE | 2018-03-27 00:19 | P.PN ---
Subjective Progress Note Date: 03/26/18 Principal diagnosis: Diarrhea and possible pneumonia Patient is a 83-year-old male with a known history of pulmonary fibrosis on home oxygen and prednisone, GERD/Reflux, Hyperlipidemia, Hypertension, Rheumatoid Arthritis (RA) came to the hospital complaints of diarrhea and increased weakness. Patient says that he had diarrhea hold the yesterday and is getting better today and felt very weak. Approximately had 6 episodes of diarrhea. He did take an Imodium yesterday and again this morning. His diarrhea has improved somewhat. He also has had some nausea with no vomiting. Denies any abdominal pain. He has had some low back pain which is been relieved by [id number] pain patch. No chest pain. Patient does have baseline shortness of breath secondary to pulmonary fibrosis. He has had increasing cough and shortness of breath according to his . Cough is productive of white sputum. denied any fever or chills. Diarrhea is brown, not watery, nonbloody. No recent travel. No recent antibiotics. Patient is on Rituxan for rheumatoid arthritis and pulmonary fibrosis. Last infusion was approximately 2 weeks ago. KUB x-ray showed nonspecific abdomen and correlate for pulmonary fibrosis Chest x-ray showed diffuse chronic pleural parenchymal changes are similar to the prior exam and most suggestive of pulmonary fibrosis. There are areas of consolidation involving the medial margin of the right upper lobe which appears stable to prior exam as well as along the periphery of the right upper lobe underlying mass or pneumonia not entirely excluded. 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 C. diff negative WBC count 34.4. Recent WBC count at the [facility] was at 13 03/26/2018 Patient says that his breathing is better. No complaints of chest pain. No nausea vomiting or abdominal pain. Otherwise patient is being continued on broad-spectrum antibiotics and WBC count is trending down to 19. Pulmonary is following. Suspect others patient has pneumonia. Patient does have underlying shortness of breath due to pulmonary fibrosis. CT chest was ordered for further evaluation. CT chest showed advanced pulmonary fibrosis with multifocal subpleural right upper consolidation that could represent acute infectious or inflammatory etiology. No fever no chills. No diarrhea currently. patient did have loose bowel movement last night. All other review of systems negative except the above Current medications reviewed Active Medications Generic Name Dose Route Start Last Admin Trade Name Freq PRN Reason Stop Dose Admin Acetaminophen 650 mg 03/25/18 15:36 Tylenol Tab PO Q6HR PRN Mild Pain or Fever > 100.5 Allopurinol 300 mg 03/26/18 09:00 03/26/18 08:14 Zyloprim PO 300 mg DAILY [facility] Administration Aspirin 81 mg 03/26/18 09:00 03/26/18 08:14 Aspirin PO 81 mg DAILY [facility] Administration Atorvastatin Calcium 10 mg 03/25/18 18:30 03/26/18 19:27 Lipitor PO 10 mg PC-SUPPER [facility] Administration Cholecalciferol 1,000 unit 03/26/18 09:00 03/26/18 08:14 Vitamin D3 PO 1,000 unit DAILY [facility] Administration Clopidogrel Bisulfate 75 mg 03/26/18 09:00 03/26/18 08:14 Plavix PO 75 mg DAILY [facility] Administration Heparin Sodium (Porcine) 5,000 unit 03/26/18 00:00 03/26/18 23:15 Heparin SQ 5,000 unit Q8HR [facility] Administration Cefepime HCl 2 gm/ Sodium 50 mls @ 100 mls/hr 03/26/18 00:00 03/26/18 23:15 Chloride IVPB 100 mls/hr Q8HR [facility] Administration Vancomycin HCl 1,500 mg/ 250 mls @ 125 mls/hr 03/26/18 08:00 03/26/18 08:54 Sodium Chloride IVPB 125 mls/hr Q16H [facility] Administration Metoprolol Tartrate 12.5 mg 03/25/18 21:00 03/26/18 23:14 Lopressor PO 12.5 mg BID [facility] Administration Multivitamins 1 each 03/26/18 12:00 03/26/18 13:12 Theragran PO 1 each DAILY@1200 [facility] Administration Multivitamins/Minerals 1 each 03/26/18 12:00 03/26/18 13:12 Ivite PO 1 each DAILY@1200 [facility] Administration Naloxone HCl 0.2 mg 03/25/18 15:36 Narcan IV Q2M PRN Opioid Reversal Pantoprazole Sodium 40 mg 03/26/18 07:30 03/26/18 08:14 Protonix PO 40 mg AC-BRKFST [facility] Administration Prednisone 5 mg 03/26/18 09:00 03/26/18 08:14 PO 5 mg DAILY [facility] Administration Objective - Vital Signs Vital signs: Vital Signs Temp 98.2 F 03/26/18 22:49 Pulse 86 03/26/18 22:49 Resp 18 03/26/18 22:49 BP 122/59 03/26/18 22:49 Pulse Ox 97 03/26/18 22:49 Intake & Output 03/26/18 03/26/18 03/27/18 06:59 18:59 06:59 Intake Total 50 Balance 50 Weight 79.379 kg Intake: Intake, IV Titration 50 Amount Cefepime 2 gm In Sodium 50 Chloride 0.9% 50 ml @ 100 mls/hr IVPB Q8HR [facility] Rx# :[id number] Other: Voiding Method Toilet Toilet # Voids 2 2 - Exam PHYSICAL EXAMINATION: Patient is lying in the bed comfortably, no acute distress, awake alert and oriented.. HEENT: Normocephalic. Neck is supple. Pupils reactive. Nostrils clear. Oral cavity is moist. Ears reveal no drainage. Neck reveals no JVD, carotid bruits, or thyromegaly. CHEST EXAMINATION: Trachea is central. Symmetrical expansion. Bilateral diffuse fine crackles. No wheezing. No rhonchi. CARDIAC: Normal S1, S2 with no gallops. No murmurs ABDOMEN: Soft. Bowel sounds normal. No organomegaly. No abdominal bruits. Extremities: reveal no edema. No clubbing or cyanosis Neurologically awake, alert, oriented x3 with well-coordinated movements. No focal deficits noted. Hard of hearing Skin: No rash or skin lesions. Psychiatric: Coperative. Nonsuicidal Musculoskeletal: No joint swelling or deformity. Normal range of motion. - Labs CBC & Chem 7: 03/26/18 06:55 03/26/18 06:55 Labs: Abnormal Lab Results - Last 24 Hours (Table) 03/26/18 03/26/18 Range/Units 06:55 06:55 WBC 19.2 H (3.8-10.6) k/uL RBC 4.19 L (4.30-5.90) m/uL Neutrophils # 16.8 H (1.3-7.7) k/uL BUN 23 H (9-20) mg/dL Glucose 105 H (74-99) mg/dL Total Protein 5.4 L (6.3-8.2) g/dL Albumin 3.2 L (3.5-5.0) g/dL Microbiology - Last 24 Hours (Table) 03/25/18 15:42 Blood Culture - Preliminary Blood No Growth after 24 hours Assessment and Plan Assessment: Shortness of breath with leukocytosis and evidence of pulmonary consolidation and underlying fibrosis. Suspected pneumonia hcap Acute Diarrhea. Rule out C. diff Significant leukocytosis 34.4 GERD Hyperlipidemia Pulmonary fibrosis with chronic hypoxic respiratory failure. Oxygen and steroid dependent Hypertension Rheumatoid arthritis on scheduled infusion every 6 months Coronary disease history of previous bypass graft DVT prophylaxis Plan: Patient will be continued on antibiotics for pneumonia with vancomycin and cefepime. Continue with the oxygen therapy and monitor closely. Continue the breathing treatments and home medications. Pulmonary is following. No diarrhea today. Further recommendations based on the clinical course. Discussed with the family at bedside. Time with Patient: Greater than 30
[2018-03-27] MEDS: VANCOMYCIN 1,500 MG in SODIUM CHLORIDE 0.9% 250 ML IVPB SCH ×2 (01:16→17:53)
[2018-03-27 07:53] LABS: Basophils # (A) 0.1 k/uL (0-0.2); Basophils % (A) 0 %; Eosinophils # (A) 0.4 k/uL (0-0.7); Eosinophils % (A) 2 %; HCT 44.9 % (39.0-53.0); HGB 14.7 gm/dL (13.0-17.5); Lymphocytes # (A) 1.1 k/uL (1.0-4.8); Lymphocytes % (A) 6 %; MCH 31.6 pg (25.0-35.0); MCHC 32.7 g/dL (31.0-37.0); MCV 96.8 fL (80.0-100.0); Mean Platelet Volume 7.2; Monocytes # (A) 0.9 k/uL (0-1.0); Monocytes % (A) 5 %; Neutrophils # (A) 15.7 k/uL (1.3-7.7); Neutrophils % (A) 86 %; Platelet Count 186 k/uL (150-450); RBC 4.64 m/uL (4.30-5.90); RDW 14.2 % (11.5-15.5); WBC 18.2 k/uL (3.8-10.6)
[2018-03-27] MEDS: CEFEPIME 2 GM in SODIUM CHLORIDE 0.9% 50 ML IVPB SCH ×2 (07:53→17:54)
[2018-03-27] MEDS: CHOLECALCIFEROL 1,000 UNIT TAB PO SCH (07:53)
[2018-03-27] MEDS: CLOPIDOGREL 75 MG TAB PO SCH (07:54)
[2018-03-27] MEDS: METOPROLOL TARTRATE 12.5 MG TAB PO SCH ×2 (07:54→20:51)
[2018-03-27] MEDS: HEPARIN SODIUM,PORCINE 5,000 UNIT/ML 1 ML VIAL SQ SCH ×3 (07:54→23:39)
[2018-03-27] MEDS: ALLOPURINOL 300 MG TAB PO SCH (07:54)
[2018-03-27] MEDS: PANTOPRAZOLE 40 MG TABLET PO SCH (07:54)
[2018-03-27] MEDS: predniSONE 5 MG TAB PO SCH (07:54)
[2018-03-27] MEDS: ASPIRIN 81 MG PO SCH (07:54)
[2018-03-27 08:13] LABS: Calcium 8.8 mg/dL (8.4-10.2)
[2018-03-27] MEDS: MULTIVITAMINS, THERA 1 EACH TAB PO SCH (13:08)
[2018-03-27] MEDS: VIT A,C & E-LUTEIN-MINERALS 1 EACH TAB PO SCH (13:08)
--- NOTE | 2018-03-27 16:09 | P.PN ---
Subjective Progress Note Date: 03/27/18 Principal diagnosis: Acute gastroenteritis This is a very pleasant 83-year-old gentleman who follows with Dr. Burton as his primary care physician. He has a history of hypertension, gastroesophageal reflux disease, hyperlipidemia, rheumatoid arthritis, gout and significant pulmonary fibrosis. He follows with Dr. Gupta in our office for the same. He receives Rituxan infusions for his arthritis. Last dose 2 weeks ago. He is also maintained on prednisone 5 mg daily. He also recently had some skin cancer removed from the right side of his nose and was on antibiotic for approximately 7 days. He presented here to the emergency room yesterday with complaints of ongoing issues with diarrhea and increasing weakness. Initially started 2 days prior to his arrival with at least 6 episodes of diarrhea. He did try Imodium 2 with no significant improvement. Computed tomography scan of the abdomen revealed loops of bowel within the abdomen and pelvis within normal limits. There was noted pancreas atrophy. There is also noted fusiform prominence of the mid abdominal aorta measuring 3.0 cm. 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 Noted pulmonary fibrosis in the lung bases. Initial white count 34.4. C. difficile screen was negative. Creatinine stable at 0.9. Patient was seen today in consultation on the regular medical floor. Computed tomography scan of the chest did reveal significant pulmonary fibrosis. Not currently on Ofev or Esbriet. He currently denies any worsening shortness of breath, cough or congestion. He is maintaining good O2 saturations in the 90s on room air. She's been afebrile. Hemodynamically stable. He was initiated on vancomycin and cefepime. White count 19.2. Creatinine 0.95. Reevaluated today on 03/27/2018, his gastroenteritis is improved but not resolved. Continues to have intermittent episodes of diarrhea, and patient tested negative for C. difficile colitis. Pulmonary-ahmadi the patient is about the same, he has chronic interstitial lung disease most likely secondary to his underlying rheumatoid arthritis, and his overall pulmonary status is about the same. I believe the patient could have his antibiotics discontinued and may have to consider GI evaluation for his diarrhea. Objective - Vital Signs Vital signs: Vital Signs Temp 97.8 F 03/27/18 15:00 Pulse 76 03/27/18 15:00 Resp 20 03/27/18 15:00 BP 129/68 03/27/18 15:00 Pulse Ox 94 L 03/27/18 15:00 Intake & Output 03/26/18 03/27/18 03/27/18 18:59 06:59 18:59 Intake Total 250 240 Balance 250 240 Weight 79.379 kg Intake: Intake, IV Titration 250 Amount Vancomycin 1,500 mg In 250 Sodium Chloride 0.9% 250 ml @ 125 mls/hr IVPB Q16H [facility] Rx#:[id number] Oral 240 Other: Voiding Method Toilet Toilet Toilet # Voids 2 2 4 # Bowel Movements 1 - Exam Constitutional General appearance: average body habitus - EENT Eyes: EOMI, PERRLA ENT: hard of hearing Ears: bilateral: normal - Neck Neck: normal ROM Carotids: bilateral: upstroke normal Thyroid: bilateral: normal size - Respiratory Respiratory: bilateral: diminished, rales, Velcro crackles at the bases bilaterally were noted. Symmetrical chest expansion. No chest wall tenderness. - Cardiovascular Rhythm: regular Heart sounds: normal: S1, S2 - Gastrointestinal General gastrointestinal: normal bowel sounds Localized gastrointestinal: tender: diffuse - Integumentary Integumentary: normal turgor - Neurologic Neurologic: CNII-XII intact - Musculoskeletal Musculoskeletal: generalized weakness - Psychiatric Psychiatric: A&O x's 3, intact judgment & insight - Labs CBC & Chem 7: 03/27/18 07:35 03/27/18 07:35 Labs: Abnormal Lab Results - Last 24 Hours (Table) 03/27/18 03/27/18 Range/Units 07:35 07:35 WBC 18.2 H (3.8-10.6) k/uL Neutrophils # 15.7 H (1.3-7.7) k/uL Glucose 111 H (74-99) mg/dL Microbiology - Last 24 Hours (Table) 03/25/18 15:42 Blood Culture - Preliminary Blood No Growth after 24 hours Assessment and Plan Assessment: #1 Acute gastroenteritis, consider GI evaluation, C. difficile screening was negative. Patient may require colonoscopy. #2 Leukocytosis secondary to above. #3 Chronic cough and dyspnea secondary to pulmonary fibrosis. On home oxygen at night. We will discontinue his antibiotics. No clear-cut evidence of pneumonia, patient does have interstitial lung disease. #4 Rheumatoid arthritis. Receiving Rituxan infusions, last dose 2 weeks ago. #5 Gastroesophageal reflux disease. #6 Hypertension. #7 Hyperlipidemia. #8 History of gout. Recommendation: Discontinue antibiotics, continue IV fluids, consider GI consultation for evaluation of his persistent gastroenteritis/diarrhea. Time with Patient: Less than 30
[2018-03-27] MEDS: BISMUTH SUBSALICYLATE 4,192 MG/240 ML BOTTLE PO SCH ×2 (18:12→20:50)
[2018-03-27] MEDS: ATORVASTATIN 10 MG TAB PO SCH (18:16)
--- NOTE | 2018-03-27 23:38 | P.PN ---
Subjective Progress Note Date: 03/27/18 Principal diagnosis: Diarrhea and possible pneumonia Patient is a 83-year-old male with a known history of pulmonary fibrosis on home oxygen and prednisone, GERD/Reflux, Hyperlipidemia, Hypertension, Rheumatoid Arthritis (RA) came to the hospital complaints of diarrhea and increased weakness. Patient says that he had diarrhea hold the yesterday and is getting better today and felt very weak. Approximately had 6 episodes of diarrhea. He did take an Imodium yesterday and again this morning. His diarrhea has improved somewhat. He also has had some nausea with no vomiting. Denies any abdominal pain. He has had some low back pain which is been relieved by [id number] pain patch. No chest pain. Patient does have baseline shortness of breath secondary to pulmonary fibrosis. He has had increasing cough and shortness of breath according to his . Cough is productive of white sputum. denied any fever or chills. Diarrhea is brown, not watery, nonbloody. No recent travel. No recent antibiotics. Patient is on Rituxan for rheumatoid arthritis and pulmonary fibrosis. Last infusion was approximately 2 weeks ago. KUB x-ray showed nonspecific abdomen and correlate for pulmonary fibrosis Chest x-ray showed diffuse chronic pleural parenchymal changes are similar to the prior exam and most suggestive of pulmonary fibrosis. There are areas of consolidation involving the medial margin of the right upper lobe which appears stable to prior exam as well as along the periphery of the right upper lobe underlying mass or pneumonia not entirely excluded. 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 C. diff negative WBC count 34.4. Recent WBC count at the [facility] was at 13 03/26/2018 Patient says that his breathing is better. No complaints of chest pain. No nausea vomiting or abdominal pain. Otherwise patient is being continued on broad-spectrum antibiotics and WBC count is trending down to 19. Pulmonary is following. Suspect others patient has pneumonia. Patient does have underlying shortness of breath due to pulmonary fibrosis. CT chest was ordered for further evaluation. CT chest showed advanced pulmonary fibrosis with multifocal subpleural right upper consolidation that could represent acute infectious or inflammatory etiology. No fever no chills. No diarrhea currently. patient did have loose bowel movement last night. 03/27/2018 Patient denied any complaints of chest pain or worsening shortness of breath. Otherwise patient did have 2 episodes of diarrhea today. CT chest showed no evidence of pneumonia. Antibiotics have been discontinued which could be causing his diarrhea. C. diff toxin was negative. Pulmonary is following. No fever no chills. We'll consider GI evaluation if the patient continues to have diarrhea. All other review of systems negative except the above Current medications reviewed Active Medications Active Medications Generic Name Dose Route Start Last Admin Trade Name Freq PRN Reason Stop Dose Admin Acetaminophen 650 mg 03/25/18 15:36 Tylenol Tab PO Q6HR PRN Mild Pain or Fever > 100.5 Allopurinol 300 mg 03/26/18 09:00 03/27/18 07:54 Zyloprim PO 300 mg DAILY ASHWIN Administration Aspirin 81 mg 03/26/18 09:00 03/27/18 07:54 Aspirin PO 81 mg DAILY ASHWIN Administration Atorvastatin Calcium 10 mg 03/25/18 18:30 03/27/18 18:16 Lipitor PO 10 mg PC-SUPPER ASHWIN Administration Bismuth Subsalicylate 524 mg 03/27/18 17:30 03/27/18 20:50 Bismatrol PO 524 mg ACHS ASHWIN Administration Cholecalciferol 1,000 unit 03/26/18 09:00 03/27/18 07:53 Vitamin D3 PO 1,000 unit DAILY ASHWIN Administration Clopidogrel Bisulfate 75 mg 03/26/18 09:00 03/27/18 07:54 Plavix PO 75 mg DAILY ASHWIN Administration Heparin Sodium (Porcine) 5,000 unit 03/26/18 00:00 03/27/18 18:12 Heparin SQ Not Given Q8HR [facility] Metoprolol Tartrate 12.5 mg 03/25/18 21:00 03/27/18 20:51 Lopressor PO 12.5 mg BID ASHWIN Administration Miscellaneous Information 0 each 03/28/18 07:00 Vancomycin Trough Due MISCELLANE 03/28/18 07:01 DIRECTED ONE Multivitamins 1 each 03/26/18 12:00 03/27/18 13:08 Theragran PO 1 each DAILY@1200 ASHWIN Administration Multivitamins/Minerals 1 each 03/26/18 12:00 03/27/18 13:08 Ivite PO 1 each DAILY@1200 ASHWIN Administration Naloxone HCl 0.2 mg 03/25/18 15:36 Narcan IV Q2M PRN Opioid Reversal Pantoprazole Sodium 40 mg 03/26/18 07:30 03/27/18 07:54 Protonix PO 40 mg AC-BRKFST ASHWIN Administration Prednisone 5 mg 03/26/18 09:00 03/27/18 07:54 PO 5 mg DAILY ASHWIN Administration Objective - Vital Signs Vital signs: Vital Signs Temp 97.7 F 03/27/18 06:44 Pulse 95 03/27/18 08:20 Resp 22 03/27/18 08:20 BP 143/65 03/27/18 06:44 Pulse Ox 92 L 03/27/18 06:44 Intake & Output 03/26/18 03/27/18 03/27/18 18:59 06:59 18:59 Intake Total 250 240 Balance 250 240 Weight 79.379 kg Intake: Intake, IV Titration 250 Amount Vancomycin 1,500 mg In 250 Sodium Chloride 0.9% 250 ml @ 125 mls/hr IVPB Q16H ASHWIN Rx#:[id number] Oral 240 Other: Voiding Method Toilet Toilet Toilet # Voids 2 2 4 # Bowel Movements 1 - Exam PHYSICAL EXAMINATION: Patient is lying in the bed comfortably, no acute distress, awake alert and oriented.. HEENT: Normocephalic. Neck is supple. Pupils reactive. Nostrils clear. Oral cavity is moist. Ears reveal no drainage. Neck reveals no JVD, carotid bruits, or thyromegaly. CHEST EXAMINATION: Trachea is central. Symmetrical expansion. Bilateral diffuse fine crackles. No wheezing. No rhonchi. CARDIAC: Normal S1, S2 with no gallops. No murmurs ABDOMEN: Soft. Bowel sounds normal. No organomegaly. No abdominal bruits. Extremities: reveal no edema. No clubbing or cyanosis Neurologically awake, alert, oriented x3 with well-coordinated movements. No focal deficits noted. Hard of hearing Skin: No rash or skin lesions. Psychiatric: Coperative. Nonsuicidal Musculoskeletal: No joint swelling or deformity. Normal range of motion. - Labs CBC & Chem 7: 03/27/18 07:35 03/27/18 07:35 Labs: Abnormal Lab Results - Last 24 Hours (Table) 03/27/18 03/27/18 Range/Units 07:35 07:35 WBC 18.2 H (3.8-10.6) k/uL Neutrophils # 15.7 H (1.3-7.7) k/uL Glucose 111 H (74-99) mg/dL Microbiology - Last 24 Hours (Table) 03/25/18 15:42 Blood Culture - Preliminary Blood No Growth after 24 hours Assessment and Plan Assessment: Shortness of breath with leukocytosis and evidence of pulmonary consolidation and underlying fibrosis. No pneumonia as per CT chest. Acute Diarrhea. Rule out C. diff. Still having diarrhea. Significant leukocytosis 34.4. Trending down to 18 today GERD Hyperlipidemia Pulmonary fibrosis with chronic hypoxic respiratory failure. Oxygen and steroid dependent Hypertension Rheumatoid arthritis on scheduled infusion every 6 months Coronary disease history of previous bypass graft DVT prophylaxis Plan: Antibiotics were given in the form cefepime and Vancomycin. CT chest showed no evidence of pneumonia. Antibiotics have been discontinued. Diarrhea could be related to his antibiotic doses. C. diff toxin negative. Gentle hydration.. Continue with the oxygen therapy and monitor closely. Continue the breathing treatments and home medications. Pulmonary is following. Discussed with his at bedside in detail.. Further recommendations based on the clinical course. Time with Patient: Greater than 30
[2018-03-28 06:18] VITALS: BP 137/65; PULSE 63; RESP 20; TEMP 97.8
[2018-03-28] MEDS ORDERED: VANCOMYCIN TROUGH DUE 1 EACH MISC MISCELLANE ONE (07:00)
[2018-03-28 07:21] LABS: Basophils % (A) 0 %; Eosinophils # (A) 0.5 k/uL (0-0.7); Eosinophils % (A) 5 %; HCT 47.8 % (39.0-53.0); HGB 15.1 gm/dL (13.0-17.5); Lymphocytes # (A) 1.4 k/uL (1.0-4.8); Lymphocytes % (A) 13 %; MCH 30.8 pg (25.0-35.0); MCHC 31.6 g/dL (31.0-37.0); MCV 97.4 fL (80.0-100.0); Mean Platelet Volume 6.8; Monocytes # (A) 0.6 k/uL (0-1.0); Monocytes % (A) 5 %; Neutrophils # (A) 8.3 k/uL (1.3-7.7); Neutrophils % (A) 75 %; Platelet Count 244 k/uL (150-450); RBC 4.91 m/uL (4.30-5.90); RDW 14.1 % (11.5-15.5); WBC 11.1 k/uL (3.8-10.6)
[2018-03-28 07:46] LABS: Anion Gap 12 mmol/L; Blood Urea Nitrogen 14 mg/dL (9-20); Calcium 9.2 mg/dL (8.4-10.2); Carbon Dioxide 28 mmol/L (22-30); Chloride 104 mmol/L (98-107); Glucose 100 mg/dL (74-99); Potassium 4.2 mmol/L (3.5-5.1); Sodium 144 mmol/L (137-145)
[2018-03-28] MEDS: ASPIRIN 81 MG PO SCH (08:29)
[2018-03-28] MEDS: HEPARIN SODIUM,PORCINE 5,000 UNIT/ML 1 ML VIAL SQ SCH ×2 (08:29→08:32)
[2018-03-28] MEDS: CLOPIDOGREL 75 MG TAB PO SCH (08:29)
[2018-03-28] MEDS: ALLOPURINOL 300 MG TAB PO SCH (08:29)
[2018-03-28] MEDS: PANTOPRAZOLE 40 MG TABLET PO SCH (08:29)
[2018-03-28] MEDS: predniSONE 5 MG TAB PO SCH (08:29)
[2018-03-28] MEDS: CHOLECALCIFEROL 1,000 UNIT TAB PO SCH (08:29)
[2018-03-28] MEDS: BISMUTH SUBSALICYLATE 4,192 MG/240 ML BOTTLE PO SCH ×2 (08:29→13:45)
[2018-03-28] MEDS: METOPROLOL TARTRATE 12.5 MG TAB PO SCH (11:23)
[2018-03-28] MEDS: MULTIVITAMINS, THERA 1 EACH TAB PO SCH (11:24)
[2018-03-28] MEDS: VIT A,C & E-LUTEIN-MINERALS 1 EACH TAB PO SCH (11:24)
--- NOTE | 2018-03-28 13:24 | P.PN ---
Subjective Progress Note Date: 03/28/18 Principal diagnosis: Shortness of breath Progress note dated 03/28/2018 This is a 83-year-old male well-known to me. He has a history of acute gastroenteritis. C. difficile screening was negative. The patient also has a history of chronic cough and shortness of breath secondary to his well- established and severe pulmonary fibrosis. In addition in addition, the patient has a history of rheumatoid arthritis GERD hypertension hyperlipidemia and gout. The patient seemed be doing relatively well from the pulmonary standpoint is pre-much back to baseline. He apparently was having some respiratory distress according to his but most of his issues were GI in nature. Dr. Cannon saw the patient in consultation. The patient is doing much better now. Feeling much better. Likely to be discharged home. Denies any significant cough wheezing shortness of breath. Objective - Vital Signs Vital signs: Vital Signs Temp 97.8 F 03/28/18 06:17 Pulse 63 03/28/18 06:17 Resp 20 03/28/18 06:17 BP 137/65 03/28/18 06:17 Pulse Ox 95 03/28/18 06:17 Intake & Output 03/27/18 03/28/18 03/28/18 18:59 06:59 18:59 Intake Total 240 Balance 240 Intake: Oral 240 Other: Voiding Method Toilet Toilet # Voids 4 1 # Bowel Movements 1 - Exam No acute distress, oriented 3. HEENT examination is grossly unremarkable. Mucous membranes are moist. No oral lesions. Neck supple. Full range of motion. No adenopathy thyromegaly or neck vein distention. Cardiovascular examination reveals regular rhythm rate. S1-S2 normal. No S3 or S4. No discernible murmur noted. Lungs reveal bibasilar Velcro crackles. He is restricted in his breathing. No rhonchi or wheezes. Breath sounds are equal bilaterally.. Abdomen soft bowel sounds are heard. No masses or tenderness. Extremities are intact. No cyanosis clubbing or edema. Skin is without rash or lesion. Neurologic examination is brief but nonfocal. - Labs CBC & Chem 7: 03/28/18 07:04 03/28/18 07:04 Labs: Abnormal Lab Results - Last 24 Hours (Table) 03/28/18 03/28/18 Range/Units 07:04 07:04 WBC 11.1 H (3.8-10.6) k/uL Neutrophils # 8.3 H (1.3-7.7) k/uL Glucose 100 H (74-99) mg/dL Microbiology - Last 24 Hours (Table) 03/25/18 15:42 Blood Culture - Preliminary Blood No Growth after 48 hours Assessment and Plan Assessment: Assessment Acute gastroenteritis, resolved Leukocytosis, likely secondary to above Chronic cough and shortness of breath secondary well established and significant pulmonary fibrosis Rheumatoid arthritis, with possible rheumatoid arthritis associated pulmonary fibrosis, currently on Rituxan infusions GERD Hypertension Hyperlipidemia Gout Plan: Plan dated 03/28/2018 The patient is doing relatively well from my perspective. Patient could be discharged. Recommendations were made. The patient was discharged on a very short course of antibiotics and steroids. No additional recommendations are made. The patient should follow with me in the office. I can see him over the next couple weeks or so. Should he have a problem before then, he knows to contact the office. Time with Patient: Less than 30
--- NOTE | 2018-03-29 01:03 | P.DS ---
Providers Date of admission: 03/25/18 15:36 Expected date of discharge: 03/28/18 Attending physician: Blessing Ortega Consults: 03/25/18 15:37 Consult Physician Urgent Consulting Provider: Josh Gupta Consult Reason/Comments: Pulm fibrosis, pneumonia Do you want consulting provider notified?: Yes Primary care physician: Adolfo Zaidi [facility] Course: Discharge diagnosis Shortness of breath with leukocytosis and evidence of pulmonary consolidation and underlying fibrosis. No pneumonia as per CT chest. Acute Diarrhea. Rule out C. diff. Still having diarrhea. Significant leukocytosis 34.4. Trending down to 18 today GERD Hyperlipidemia Pulmonary fibrosis with chronic hypoxic respiratory failure. Oxygen and steroid dependent Hypertension Rheumatoid arthritis on scheduled infusion every 6 months Coronary disease history of previous bypass graft DVT prophylaxis Hospital course Patient is a 83-year-old male with a known history of pulmonary fibrosis on home oxygen and prednisone, GERD/Reflux, Hyperlipidemia, Hypertension, Rheumatoid Arthritis (RA) came to the hospital complaints of diarrhea and increased weakness. Patient says that he had diarrhea hold the yesterday and is getting better today and felt very weak. Approximately had 6 episodes of diarrhea. He did take an Imodium yesterday and again this morning. His diarrhea has improved somewhat. He also has had some nausea with no vomiting. Denies any abdominal pain. He has had some low back pain which is been relieved by [id number] pain patch. No chest pain. Patient does have baseline shortness of breath secondary to pulmonary fibrosis. He has had increasing cough and shortness of breath according to his . Cough is productive of white sputum. denied any fever or chills. Diarrhea is brown, not watery, nonbloody. No recent travel. No recent antibiotics. Patient is on Rituxan for rheumatoid arthritis and pulmonary fibrosis. Last infusion was approximately 2 weeks ago. KUB x-ray showed nonspecific abdomen and correlate for pulmonary fibrosis Chest x-ray showed diffuse chronic pleural parenchymal changes are similar to the prior exam and most suggestive of pulmonary fibrosis. There are areas of consolidation involving the medial margin of the right upper lobe which appears stable to prior exam as well as along the periphery of the right upper lobe underlying mass or pneumonia not entirely excluded. 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 C. diff negative WBC count 34.4. Recent WBC count at the [facility] was at 13 03/26/2018 Patient says that his breathing is better. No complaints of chest pain. No nausea vomiting or abdominal pain. Otherwise patient is being continued on broad-spectrum antibiotics and WBC count is trending down to 19. Pulmonary is following. Suspect others patient has pneumonia. Patient does have underlying shortness of breath due to pulmonary fibrosis. CT chest was ordered for further evaluation. CT chest showed advanced pulmonary fibrosis with multifocal subpleural right upper consolidation that could represent acute infectious or inflammatory etiology. No fever no chills. No diarrhea currently. patient did have loose bowel movement last night. 03/27/2018 Patient denied any complaints of chest pain or worsening shortness of breath. Otherwise patient did have 2 episodes of diarrhea today. CT chest showed no evidence of pneumonia. Antibiotics have been discontinued which could be causing his diarrhea. C. diff toxin was negative. Pulmonary is following. No fever no chills. We'll consider GI evaluation if the patient continues to have diarrhea. 03/28/2018 Patient denied any complaints of chest pain or shortness of breath. And abuts have been discontinued yesterday. Patient denied any diarrhea today otherwise patient is stable to discharge home with oral antibiotics and steroid doses. Antibiotics were given in the form cefepime and Vancomycin. CT chest showed no evidence of pneumonia. Antibiotics have been discontinued. Diarrhea could be related to his antibiotic doses. Diarrhea resolved today. C. diff toxin negative. Gentle hydration.. Continue with the oxygen therapy and monitor closely. Continue the breathing treatments and home medications. Pulmonary has seen the patient.. Discussed with his at bedside in detail.. Patient otherwise stable to be discharged home. Clinically much improved. PHYSICAL EXAMINATION: Patient is lying in the bed comfortably, no acute distress, awake alert and oriented.. HEENT: Normocephalic. Neck is supple. Pupils reactive. Nostrils clear. Oral cavity is moist. Ears reveal no drainage. Neck reveals no JVD, carotid bruits, or thyromegaly. CHEST EXAMINATION: Trachea is central. Symmetrical expansion. Bibasilar fine crackles. No wheezing. CARDIAC: Normal S1, S2 with no gallops. No murmurs ABDOMEN: Soft. Bowel sounds normal. No organomegaly. No abdominal bruits. Extremities: reveal no edema. No clubbing or cyanosis Neurologically awake, alert, oriented x3 with well-coordinated movements. No focal deficits noted Skin: No rash or skin lesions. Psychiatric: Coperative. Nonsuicidal Musculoskeletal: No joint swelling or deformity. Normal range of motion. Vital Signs - 24 hr 03/28/18 06:17 Temperature 97.8 F Pulse Rate [ 63 Bilateral Dorsalis Pedis] Respiratory 20 Rate Blood Pressure 137/65 [Right Arm] O2 Sat by Pulse 95 Oximetry Patient Condition at Discharge: Stable Plan - Discharge Summary Discharge Rx Participant: No New Discharge Prescriptions: New Azithromycin [Zithromax] 500 mg PO DAILY 5 Days #5 tab predniSONE 10 mg PO DAILY 12 Days #24 tab Continue predniSONE 5 mg PO DAILY Vit C/E/Zn/Coppr/Lutein/Zeaxan [Preservision Areds 2 Softgel] 1 cap PO DAILY Pantoprazole [Protonix] 40 mg PO DAILY Multivit-Min/FA/Lycopen/Lutein [Centrum Silver Tablet] 1 tab PO DAILY Cholecalciferol [Vitamin D3] 1,000 unit PO DAILY Aspirin EC [Ecotrin Low Dose] 81 mg PO DAILY Metoprolol Tartrate [Lopressor] 12.5 mg PO BID Lovastatin [Mevacor] 40 mg PO PC-SUPPER Clopidogrel [Plavix] 75 mg PO DAILY Allopurinol [Zyloprim] 300 mg PO DAILY Rituxan 500mg/50ml 1 dose IV Q6M Discharge Medication List Allopurinol [Zyloprim] 300 mg PO DAILY 03/25/18 [History] Aspirin EC [Ecotrin Low Dose] 81 mg PO DAILY 03/25/18 [History] Cholecalciferol [Vitamin D3] 1,000 unit PO DAILY 03/25/18 [History] Clopidogrel [Plavix] 75 mg PO DAILY 03/25/18 [History] Lovastatin [Mevacor] 40 mg PO PC-SUPPER 03/25/18 [History] Metoprolol Tartrate [Lopressor] 12.5 mg PO BID 03/25/18 [History] Multivit-Min/FA/Lycopen/Lutein [Centrum Silver Tablet] 1 tab PO DAILY 03/25/18 [ History] Pantoprazole [Protonix] 40 mg PO DAILY 03/25/18 [History] Rituxan 500mg/50ml 1 dose IV Q6M 03/25/18 [History] Vit C/E/Zn/Coppr/Lutein/Zeaxan [Preservision Areds 2 Softgel] 1 cap PO DAILY 06/04 [History] predniSONE 5 mg PO DAILY 03/25/18 [History] Azithromycin [Zithromax] 500 mg PO DAILY 5 Days #5 tab 03/28/18 [Rx] predniSONE 10 mg PO DAILY 12 Days #24 tab 03/28/18 [Rx] Follow up Appointment(s)/Referral(s): Josh Gupta DO [Doctor of Osteopathic Medicine] - 04/11/18 1:30 pm Adolfo Burton MD [Primary Care Provider] - 03/29/18 3:45 pm Patient Instructions/Handouts: Prednisone (By mouth), Azithromycin (By mouth), Pulmonary Fibrosis (DC), Leukocytosis (DC), Pneumonia (DC) Discharge Disposition: HOME SELF-CARE
== END 2018-03-28 15:00 | disposition home or self-care (01) | DRG 392 ==
LOC: EC 10:28 → 5MS5E 15:36
PROVIDERS: ADMIT Internal Medicine; ATTEND Internal Medicine
DX: K52.9 Noninfective gastroenteritis and colitis, unspecified (principal); J96.11 Chronic respiratory failure with hypoxia; J84.10 Pulmonary fibrosis, unspecified; E78.5 Hyperlipidemia, unspecified; F17.200 Nicotine dependence, unspecified, uncomplicated; I10 Essential (primary) hypertension; K21.9 Gastro-esophageal reflux disease without esophagitis; M06.9 Rheumatoid arthritis, unspecified; M10.9 Gout, unspecified; M19.90 Unspecified osteoarthritis, unspecified site; Z79.02 Long term (current) use of antithrombotics/antiplatelets; Z79.52 Long term (current) use of systemic steroids; Z79.82 Long term (current) use of aspirin; Z82.49 Family history of ischemic heart disease and other diseases of the circulatory system; Z85.828 Personal history of other malignant neoplasm of skin; Z95.1 Presence of aortocoronary bypass graft; Z99.81 Dependence on supplemental oxygen; T36.95XA Adverse effect of unspecified systemic antibiotic, initial encounter
CPT/HCPCS: 36415; 71046; 71250; 74018; 74177; 80048; 80053; 80202; 81001; 83605; 83690; 85025; 87040; 87324; 87449; 96360; 96361; 99285

== ENCOUNTER 2018-10-10 09:43 | Emergency (ER) | payer MEDICARE, BC ==
[2018-10-10 09:49] VITALS: TEMP 97.5
[2018-10-10] MEDS ORDERED: SODIUM CHLORIDE 0.9% 1,000 ML IV STA (10:17)
--- NOTE | 2018-10-10 10:40 | ED ---
General Adult HPI - General Chief complaint: Nausea/Vomiting/Diarrhea Stated complaint: vomiting Time Seen by Provider: 10/10/18 10:07 Source: patient, RN notes reviewed Mode of arrival: ambulatory Limitations: no limitations - History of Present Illness Initial comments: Patient 83-year-old male presenting to the emergency room today with a chief complaint of diarrhea over the last 3 days. Patient does admit that he had an episode of vomiting this morning. He denies any signs of blood in the emesis or stool. Patient does admit he's had some cramping type pain in his abdomen. States he feels much better after vomiting this morning. Denies any pain at this time. Patient does admit that he had similar symptoms proxy 6 months ago. He does admit that he is on infusions for pulmonary fibrosis. Sensory deficits related. He did have an effusion 3 weeks ago. Patient denies any other complaints or symptoms at this time. Patient denies any recent fever, chills, shortness of breath, chest pain, back pain, dysuria or hematuria, constipation, headaches or visual changes, or any other complaints. - Related Data Home Medications Medication Instructions Recorded Confirmed Allopurinol [Zyloprim] 300 mg PO DAILY 03/25/18 03/25/18 Aspirin EC [Ecotrin Low Dose] 81 mg PO DAILY 03/25/18 03/25/18 Cholecalciferol [Vitamin D3] 1,000 unit PO DAILY 03/25/18 03/25/18 Clopidogrel [Plavix] 75 mg PO DAILY 03/25/18 03/25/18 Lovastatin [Mevacor] 40 mg PO PC-SUPPER 03/25/18 03/25/18 Metoprolol Tartrate [Lopressor] 12.5 mg PO BID 03/25/18 03/25/18 Multivit-Min/FA/Lycopen/Lutein 1 tab PO DAILY 03/25/18 03/25/18 [Centrum Silver Tablet] Pantoprazole [Protonix] 40 mg PO DAILY 03/25/18 03/25/18 Rituxan 500mg/50ml 1 dose IV Q6M 03/25/18 03/25/18 Vit C/E/Zn/Coppr/Lutein/Zeaxan 1 cap PO DAILY 03/25/18 03/25/18 [Preservision Areds 2 Softgel] predniSONE 5 mg PO DAILY 03/25/18 03/25/18 Previous Rx's Medication Instructions Recorded Azithromycin [Zithromax] 500 mg PO DAILY 5 Days #5 tab 03/28/18 predniSONE 10 mg PO DAILY 12 Days #24 tab 03/28/18 Ondansetron Odt [Zofran ODT] 4 mg PO Q8HR PRN #10 tab 10/10/18 Allergies Allergy/AdvReac Type Severity Reaction Status Date / Time No Known Allergies Allergy Verified 10/10/18 09:49 Review of Systems ROS Statement: Those systems with pertinent positive or pertinent negative responses have been documented in the HPI. ROS Other: All systems not noted in ROS Statement are negative. Past Medical History Past Medical History: GERD/Reflux, Hyperlipidemia, Hypertension, Rheumatoid Arthritis (RA) Additional Past Medical History / Comment(s): Gout History of Any Multi-Drug Resistant Organisms: None Reported Past Surgical History: No Surgical Hx Reported Additional Past Surgical History / Comment(s): triple vessel cabg, skin cancer removed nose and lt shoulder, thom cataracts. Past Anesthesia/Blood Transfusion Reactions: No Reported Reaction Past Psychological History: No Psychological Hx Reported Smoking Status: Former smoker Past Alcohol Use History: Occasional Past Drug Use History: None Reported - Past Family History Mother Additional Family Medical History / Comment(s): pulmonary fibrosis Father Family Medical History: Myocardial Infarction ([place]) General Exam - General Exam Comments Initial Comments: General: The patient is awake and alert, in no distress, and does not appear acutely ill. Eye: There is normal conjunctiva bilaterally. No signs of icterus. Ears, nose, mouth and throat: There are moist mucous membranes and no oral lesions. Neck: The neck is supple, there is no tenderness or JVD. Cardiovascular: There is a regular rate and rhythm. No murmur, rub or gallop is appreciated. Respiratory: Lungs are clear to auscultation, respirations are non-labored, breath sounds are equal. No wheezes, stridor, rales, or rhonchi. Gastrointestinal: Soft, non-distended, non-tender abdomen without masses or organomegaly noted. There is no rebound or guarding present. No CVA tenderness. Bowel sounds are unremarkable. Musculoskeletal: Normal ROM, no tenderness. Neurological: A&O x 3. CN II-XII intact, There are no obvious motor or sensory deficits. Coordination appears grossly intact. Speech is normal. Skin: Skin is warm and dry and no rashes or lesions are noted. Psychiatric: Cooperative, appropriate mood & affect, normal judgment. Limitations: no limitations Course Vital Signs 10/10/18 09:46 Temperature 97.5 F L Pulse Rate 70 Respiratory 20 Rate Blood Pressure 127/75 O2 Sat by Pulse 96 Oximetry EKG Findings - EKG Comments: EKG Findings:: EKG performed at 1204: Shows normal sinus rhythm at 62 bpm. MT interval 170. QRS 100. QT/QTc 438/444. No acute ST changes. Medical Decision Making - Medical Decision Making Patient's labs have been reviewed does show 13,000 white count. Patient did have multiple episodes of diarrhea over the last 3 days with episode of nausea vomiting this morning. He does admit that after the nausea vomiting this morning he's felt much better. He denies any abdominal pain. His abdomen is soft nontender. Patient did have similar symptoms 6 months ago this was reviewed and did show a white count of 34. Patient did have a CT abdomen and pelvis which was negative. Patient admits that he does get infusions for his pulmonary fibrosis is unsure if this was related as noticed that after he hashe sometimes has a symptoms. At this time patient is resting comfortably. His abdomen is soft nontender. White count is felt to be reactive due to the nausea vomiting diarrhea. Patient will be given Zofran for nausea. He'll be discharged home is advised follow-up family doctor over the next 2-5 days returning if any symptoms increase or worsen. He states understanding and is in agreement. - Lab Data Result diagrams: 10/10/18 10:58 10/10/18 10:58 Lab Results 10/10/18 10/10/18 10/10/18 Range/Units 10:58 10:58 10:58 WBC 13.4 H (3.8-10.6) k/uL RBC 5.15 (4.30-5.90) m/uL Hgb 16.0 (13.0-17.5) gm/dL Hct 50.5 (39.0-53.0) % MCV 98.1 (80.0-100.0) fL MCH 31.1 (25.0-35.0) pg MCHC 31.8 (31.0-37.0) g/dL RDW 13.9 (11.5-15.5) % Plt Count 246 (150-450) k/uL Neutrophils % 77 % Lymphocytes % 13 % Monocytes % 5 % Eosinophils % 2 % Basophils % 0 % Neutrophils # 10.4 H (1.3-7.7) k/uL Lymphocytes # 1.8 (1.0-4.8) k/uL Monocytes # 0.7 (0-1.0) k/uL Eosinophils # 0.3 (0-0.7) k/uL Basophils # 0.1 (0-0.2) k/uL Sodium 140 (137-145) mmol/L Potassium 4.1 (3.5-5.1) mmol/L Chloride 100 (98-107) mmol/L Carbon Dioxide 32 H (22-30) mmol/L Anion Gap 8 mmol/L BUN 22 H (9-20) mg/dL Creatinine 0.89 (0.66-1.25) mg/dL Est GFR (CKD-EPI)AfAm >90 (>60 ml/min/1.73 sqM) Est GFR (CKD-EPI)NonAf 80 (>60 ml/min/1.73 sqM) Glucose 92 (74-99) mg/dL Calcium 9.2 (8.4-10.2) mg/dL Total Bilirubin 0.8 (0.2-1.3) mg/dL AST 24 (17-59) U/L ALT 29 (21-72) U/L Alkaline Phosphatase 85 (38-126) U/L Total Protein 6.9 (6.3-8.2) g/dL Albumin 4.1 (3.5-5.0) g/dL Amylase <30 L (30-110) U/L Lipase 15 L (23-300) U/L Urine Color Yellow Urine Appearance Clear (Clear) Urine pH 6.0 (5.0-8.0) Ur Specific [place] 1.020 (1.001-1.035) Urine Protein 1+ H (Negative) Urine Glucose (UA) Negative (Negative) Urine Ketones Negative (Negative) Urine Blood Negative (Negative) Urine Nitrite Negative (Negative) Urine Bilirubin Negative (Negative) Urine Urobilinogen <2.0 (<2.0) mg/dL Ur Leukocyte Esterase Negative (Negative) Urine RBC <1 (0-5) /hpf Urine WBC 1 (0-5) /hpf Ur Squamous Epith Cells <1 (0-4) /hpf Urine Mucus Rare H (None) /hpf Disposition Clinical Impression: Nausea vomiting and diarrhea Disposition: HOME SELF-CARE Condition: Good Instructions: Acute Nausea and Vomiting (ED) Additional Instructions: Please use medication as discussed. Please follow-up with family doctor in the next 2 days of symptoms have not improved. Please return to emergency room if the symptoms increase or worsen or for any other concerns. Prescriptions: Ondansetron Odt [Zofran ODT] 4 mg PO Q8HR PRN #10 tab PRN Reason: Nausea Is patient prescribed a controlled substance at d/c from ED?: No Referrals: Adolfo Burton MD [Primary Care Provider] - 1-2 days
[2018-10-10 11:23] LABS: Basophils # (A) 0.1 k/uL (0-0.2); Basophils % (A) 0 %; Eosinophils # (A) 0.3 k/uL (0-0.7); Eosinophils % (A) 2 %; HCT 50.5 % (39.0-53.0); Lymphocytes # (A) 1.8 k/uL (1.0-4.8); Lymphocytes % (A) 13 %; MCH 31.1 pg (25.0-35.0); MCHC 31.8 g/dL (31.0-37.0); MCV 98.1 fL (80.0-100.0); Mean Platelet Volume 6.7; Monocytes # (A) 0.7 k/uL (0-1.0); Monocytes % (A) 5 %; Neutrophils # (A) 10.4 k/uL (1.3-7.7); Neutrophils % (A) 77 %; Platelet Count 246 k/uL (150-450); RBC 5.15 m/uL (4.30-5.90); RDW 13.9 % (11.5-15.5); WBC 13.4 k/uL (3.8-10.6)
[2018-10-10 11:33] LABS: ALT 29 U/L (21-72); AST 24 U/L (17-59); Albumin 4.1 g/dL (3.5-5.0); Alkaline Phosphatase 85 U/L (38-126); Amylase <30 U/L (30-110); Anion Gap 8 mmol/L; Blood Urea Nitrogen 22 mg/dL (9-20); Calcium 9.2 mg/dL (8.4-10.2); Carbon Dioxide 32 mmol/L (22-30); Chloride 100 mmol/L (98-107); Glucose 92 mg/dL (74-99); Lipase 15 U/L (23-300); Potassium 4.1 mmol/L (3.5-5.1); Sodium 140 mmol/L (137-145); Total Bilirubin 0.8 mg/dL (0.2-1.3); Total Protein 6.9 g/dL (6.3-8.2)
[2018-10-10 11:40] LABS: Appearance,Urine Clear (Clear); Bilirubin,Urine Negative (Negative); Blood,Urine Negative (Negative); Color,Urine Yellow; Glucose,Urine (UA) Negative (Negative); Ketones,Urine Negative (Negative); Leukocyte Esterase,Urine Negative (Negative); Mucus,Urine Rare /hpf; Nitrite,Urine Negative (Negative); Protein,Urine 1+ (Negative); RBC,Urine <1 /hpf (0-5); Squamous Epithelial Cell,Urine <1 /hpf (0-4); Urobilinogen,Urine <2.0 mg/dL (<2.0); WBC,Urine 1 /hpf (0-5)
[2018-10-10] MEDS ORDERED: ONDANSETRON 4 MG ODT STARTER PACK 2 TAB BTL PO STA (12:08)
[2018-10-10 12:34] VITALS: BP 128/71; PULSE 64; RESP 18
== END 2018-10-10 12:33 | disposition home or self-care (01) ==
LOC: EC 09:43
DX: R11.2 Nausea with vomiting, unspecified (principal); R19.7 Diarrhea, unspecified; J84.10 Pulmonary fibrosis, unspecified; E78.5 Hyperlipidemia, unspecified; I10 Essential (primary) hypertension; K21.9 Gastro-esophageal reflux disease without esophagitis; M06.9 Rheumatoid arthritis, unspecified; M10.9 Gout, unspecified; Z87.891 Personal history of nicotine dependence; Z79.02 Long term (current) use of antithrombotics/antiplatelets; Z79.52 Long term (current) use of systemic steroids; Z79.82 Long term (current) use of aspirin; Z79.899 Other long term (current) drug therapy; Z83.6 Family history of other diseases of the respiratory system
CPT/HCPCS: 36415; 93005; 80053; 82150; 83690; 85025; 81001; 99284; 96360; S0119

== ENCOUNTER 2018-11-05 04:31 | Inpatient (IN) | payer MEDICARE, BC ==
[2018-11-05] MEDS ORDERED: ALBUTEROL NEBULIZED 2.5 MG/3 ML INHALATION STA ×2 (05:15→13:27)
[2018-11-05 05:34] LABS: Basophils % (A) 0 %; Eosinophils # (A) 0.1 k/uL (0-0.7); Eosinophils % (A) 1 %; HCT 45.3 % (39.0-53.0); HGB 14.4 gm/dL (13.0-17.5); Lymphocytes # (A) 1.2 k/uL (1.0-4.8); Lymphocytes % (A) 9 %; MCH 30.9 pg (25.0-35.0); MCHC 31.9 g/dL (31.0-37.0); Mean Platelet Volume 6.3; Monocytes # (A) 0.8 k/uL (0-1.0); Monocytes % (A) 6 %; Neutrophils # (A) 11.3 k/uL (1.3-7.7); Neutrophils % (A) 82 %; Platelet Count 220 k/uL (150-450); RBC 4.67 m/uL (4.30-5.90); RDW 14.3 % (11.5-15.5); WBC 13.7 k/uL (3.8-10.6)
[2018-11-05 05:43] LABS: Albumin 3.9 g/dL (3.5-5.0); Anion Gap 10 mmol/L; Calcium 9.2 mg/dL (8.4-10.2); Carbon Dioxide 28 mmol/L (22-30); Chloride 100 mmol/L (98-107); Glucose 102 mg/dL (74-99); Sodium 138 mmol/L (137-145); Total Bilirubin 0.7 mg/dL (0.2-1.3); Total Protein 6.4 g/dL (6.3-8.2)
[2018-11-05 05:47] LABS: INR 1.1 (<1.2); Partial Thromboplastin Time 25.4 sec (22.0-30.0); Prothrombin Time 11.3 sec (9.0-12.0)
[2018-11-05 05:52] LABS: ALT 49 U/L (21-72); AST 45 U/L (17-59); Alkaline Phosphatase 79 U/L (38-126); Blood Urea Nitrogen 22 mg/dL (9-20)
[2018-11-05 05:59] LABS: D-Dimer 0.88 mg/L FEU (<0.60)
[2018-11-05 06:10] LABS: Creatine Kinase MB 0.4 ng/mL (0.0-2.4); Troponin I 0.017 ng/mL (0.000-0.034)
--- NOTE | 2018-11-05 06:18 | XR ---
EXAMINATION TYPE: XR chest 2V DATE OF EXAM: 11/05/2018 COMPARISON: 03/25/2018 HISTORY: Difficulty breathing TECHNIQUE: Frontal and lateral views of the chest are obtained. FINDINGS: There is extensive patchy interstitial density in both lungs. Heart size is normal. There are chest leads. There are sternal wires. IMPRESSION: Findings consistent with advanced fibrosis unchanged compared to old exam. No pulmonary density.
[2018-11-05] MEDS ORDERED: methylPREDNISolone SOD SUCCI 125 MG/2 ML VIAL IV STA (07:32)
--- NOTE | 2018-11-05 07:42 | ED ---
SOB HPI - General Chief Complaint: Shortness of Breath Stated Complaint: SOB/Cough Time Seen by Provider: 11/05/18 05:15 Source: patient, family Mode of arrival: wheelchair Limitations: no limitations - History of Present Illness Initial Comments: This patient is an 83-year-old man who has a history of pulmonary fibrosis and sees Dr. Gupta, who presents with complaint that he is having a little bit of an increase of shortness of breath and also that he is having more frequent cough than his usual at his baseline. He states that the cough is largely nonproductive. He has not noted fevers or chills. There is no chest pain. He does use home oxygen at 2 L at his baseline. Patient denies any other pains. No change in urination. No change in bowel movements. No swelling or pain in the legs. Patient states he had seen the buyer renter and sounds like he was given a Medrol taper. He states that he is currently at 3 pills per day. MD Complaint: shortness of breath, cough Onset/Timin -: week(s) Consistency: constant Improves With: nothing Worsens With: nothing Known History Of: other (A fibrosis) Associated Symptoms: cough Treatments Prior to Arrival: oxygen - Related Data Home Medications Medication Instructions Recorded Confirmed Allopurinol [Zyloprim] 300 mg PO DAILY 03/25/18 11/05/18 Aspirin EC [Ecotrin Low Dose] 81 mg PO DAILY 03/25/18 11/05/18 Cholecalciferol [Vitamin D3] 1,000 unit PO DAILY 03/25/18 11/05/18 Clopidogrel [Plavix] 75 mg PO DAILY 03/25/18 11/05/18 Lovastatin [Mevacor] 40 mg PO PC-SUPPER 03/25/18 11/05/18 Metoprolol Tartrate [Lopressor] 12.5 mg PO BID 03/25/18 11/05/18 Multivit-Min/FA/Lycopen/Lutein 1 tab PO DAILY 03/25/18 11/05/18 [Centrum Silver Tablet] Pantoprazole [Protonix] 40 mg PO DAILY 03/25/18 11/05/18 Rituxan 500mg/50ml 1 dose IV Q6M 03/25/18 11/05/18 Vit C/E/Zn/Coppr/Lutein/Zeaxan 1 cap PO DAILY 03/25/18 11/05/18 [Preservision Areds 2 Softgel] predniSONE 5 mg PO DAILY 03/25/18 11/05/18 Previous Rx's Medication Instructions Recorded Azithromycin [Zithromax] 500 mg PO DAILY 5 Days #5 tab 03/28/18 predniSONE 10 mg PO DAILY 12 Days #24 tab 03/28/18 Ondansetron Odt [Zofran ODT] 4 mg PO Q8HR PRN #10 tab 10/10/18 Allergies Allergy/AdvReac Type Severity Reaction Status Date / Time No Known Allergies Allergy Verified 11/05/18 04:40 Review of Systems ROS Statement: Those systems with pertinent positive or pertinent negative responses have been documented in the HPI. ROS Other: All systems not noted in ROS Statement are negative. Constitutional: Denies: fever, chills Respiratory: Reports: as per HPI, cough, dyspnea, wheezes. Denies: hemoptysis, stridor Cardiovascular: Reports: dyspnea on exertion. Denies: chest pain, palpitations , orthopnea, edema, syncope Gastrointestinal: Denies: abdominal pain, nausea, vomiting Genitourinary: Denies: dysuria, hematuria Musculoskeletal: Denies: back pain Skin: Reports: rash Neurological: Denies: headache, weakness, numbness Past Medical History Past Medical History: GERD/Reflux, Hyperlipidemia, Hypertension, Rheumatoid Arthritis (RA) Additional Past Medical History / Comment(s): Gout, pulmonaru fibrosis History of Any Multi-Drug Resistant Organisms: None Reported Past Surgical History: No Surgical Hx Reported Additional Past Surgical History / Comment(s): triple vessel cabg, skin cancer removed nose and lt shoulder, thom cataracts. Past Anesthesia/Blood Transfusion Reactions: No Reported Reaction Past Psychological History: No Psychological Hx Reported Smoking Status: Former smoker Past Alcohol Use History: Occasional Past Drug Use History: None Reported - Past Family History Mother Additional Family Medical History / Comment(s): pulmonary fibrosis Father Family Medical History: Myocardial Infarction ([place]) General Exam Limitations: no limitations General appearance: alert, in distress (Mild respiratory distress) Head exam: Present: atraumatic, normocephalic Eye exam: Present: normal appearance ENT exam: Present: mucous membranes dry Neck exam: Present: normal inspection Respiratory exam: Present: respiratory distress, rales (Dry crackles through the lungs laterally). Absent: wheezes, rhonchi, stridor, accessory muscle use, decreased breath sounds, prolonged expiratory Cardiovascular Exam: Present: regular rate, normal rhythm, normal heart sounds. Absent: systolic murmur, diastolic murmur, rubs, gallop GI/Abdominal exam: Present: soft. Absent: distended, tenderness, guarding, rebound, rigid, mass Extremities exam: Present: normal inspection, normal capillary refill. Absent: pedal edema, calf tenderness Back exam: Present: normal inspection. Absent: CVA tenderness (R), CVA tenderness (L) Neurological exam: Present: alert Skin exam: Present: warm, dry, intact, normal color. Absent: rash Course Vital Signs 11/05/18 11/05/18 11/05/18 04:35 04:46 04:50 Temperature 99 F Pulse Rate 104 H 101 H 94 Respiratory 20 19 19 Rate Blood Pressure 154/77 120/87 O2 Sat by Pulse 89 L 94 L Oximetry 11/05/18 11/05/18 11/05/18 05:20 05:26 06:40 Temperature Pulse Rate 89 89 90 Respiratory 19 20 20 Rate Blood Pressure 121/73 O2 Sat by Pulse 97 96 Oximetry Medical Decision Making - Medical Decision Making Patient is an 83-year-old man with what appears to be exacerbation of underlying pulmonary fibrosis. Patient is not feeling much better following steroid and one nebulized albuterol treatment. Will be admitted for consultation with his buyer renter and further treatment. - Lab Data Result diagrams: 11/05/18 05:20 11/05/18 05:20 Lab Results 11/05/18 11/05/18 11/05/18 Range/Units 05:20 05:20 05:20 WBC (3.8-10.6) k/uL RBC (4.30-5.90) m/uL Hgb (13.0-17.5) gm/dL Hct (39.0-53.0) % MCV (80.0-100.0) fL MCH (25.0-35.0) pg MCHC (31.0-37.0) g/dL RDW (11.5-15.5) % Plt Count (150-450) k/uL Neutrophils % % Lymphocytes % % Monocytes % % Eosinophils % % Basophils % % Neutrophils # (1.3-7.7) k/uL Lymphocytes # (1.0-4.8) k/uL Monocytes # (0-1.0) k/uL Eosinophils # (0-0.7) k/uL Basophils # (0-0.2) k/uL PT 11.3 (9.0-12.0) sec INR 1.1 (<1.2) APTT 25.4 (22.0-30.0) sec D-Dimer 0.88 H (<0.60) mg/L FEU Sodium (137-145) mmol/L Potassium (3.5-5.1) mmol/L Chloride (98-107) mmol/L Carbon Dioxide (22-30) mmol/L Anion Gap mmol/L BUN (9-20) mg/dL Creatinine (0.66-1.25) mg/dL Est GFR (CKD-EPI)AfAm (>60 ml/min/1.73 sqM) Est GFR (CKD-EPI)NonAf (>60 ml/min/1.73 sqM) Glucose (74-99) mg/dL Calcium (8.4-10.2) mg/dL Total Bilirubin (0.2-1.3) mg/dL AST (17-59) U/L ALT (21-72) U/L Alkaline Phosphatase (38-126) U/L Total Creatine Kinase 21 L (55-170) U/L CK-MB (CK-2) 0.4 (0.0-2.4) ng/mL CK-MB (CK-2) Rel Index 1.9 Troponin I 0.017 (0.000-0.034) ng/mL NT-Pro-B Natriuret Pep 811 pg/mL Total Protein (6.3-8.2) g/dL Albumin (3.5-5.0) g/dL Influenza Type A RNA (Not Detectd) Influenza Type B (PCR) (Not Detectd) 11/05/18 11/05/18 11/05/18 Range/Units 05:20 05:20 05:20 WBC 13.7 H (3.8-10.6) k/uL RBC 4.67 (4.30-5.90) m/uL Hgb 14.4 (13.0-17.5) gm/dL Hct 45.3 (39.0-53.0) % MCV 97.0 (80.0-100.0) fL MCH 30.9 (25.0-35.0) pg MCHC 31.9 (31.0-37.0) g/dL RDW 14.3 (11.5-15.5) % Plt Count 220 (150-450) k/uL Neutrophils % 82 % Lymphocytes % 9 % Monocytes % 6 % Eosinophils % 1 % Basophils % 0 % Neutrophils # 11.3 H (1.3-7.7) k/uL Lymphocytes # 1.2 (1.0-4.8) k/uL Monocytes # 0.8 (0-1.0) k/uL Eosinophils # 0.1 (0-0.7) k/uL Basophils # 0.0 (0-0.2) k/uL PT (9.0-12.0) sec INR (<1.2) APTT (22.0-30.0) sec D-Dimer (<0.60) mg/L FEU Sodium 138 (137-145) mmol/L Potassium 4.0 (3.5-5.1) mmol/L Chloride 100 (98-107) mmol/L Carbon Dioxide 28 (22-30) mmol/L Anion Gap 10 mmol/L BUN 22 H (9-20) mg/dL Creatinine 0.84 (0.66-1.25) mg/dL Est GFR (CKD-EPI)AfAm >90 (>60 ml/min/1.73 sqM) Est GFR (CKD-EPI)NonAf 82 (>60 ml/min/1.73 sqM) Glucose 102 H (74-99) mg/dL Calcium 9.2 (8.4-10.2) mg/dL Total Bilirubin 0.7 (0.2-1.3) mg/dL AST 45 (17-59) U/L ALT 49 (21-72) U/L Alkaline Phosphatase 79 (38-126) U/L Total Creatine Kinase (55-170) U/L CK-MB (CK-2) (0.0-2.4) ng/mL CK-MB (CK-2) Rel Index Troponin I (0.000-0.034) ng/mL NT-Pro-B Natriuret Pep pg/mL Total Protein 6.4 (6.3-8.2) g/dL Albumin 3.9 (3.5-5.0) g/dL Influenza Type A RNA Not Detected (Not Detectd) Influenza Type B (PCR) Not Detected (Not Detectd) Disposition Clinical Impression: Pulmonary fibrosis Disposition: ADMITTED IP TO THIS HOSP Condition: Poor Is patient prescribed a controlled substance at d/c from ED?: No Referrals: Adolfo Burton MD [Primary Care Provider] - 1-2 days
[2018-11-05] MEDS ORDERED: ONDANSETRON ODT 4 MG TAB PO PRN (07:44)
[2018-11-05] MEDS: RITUXIMAB 500 MG/50 ML IV SCH (08:32)
--- NOTE | 2018-11-05 08:50 | CT ---
EXAMINATION TYPE: CT chest angio for PE DATE OF EXAM: 11/05/2018 COMPARISON: Previous noncontrast CT of the chest dated 03/26/2018 HISTORY: SOB, Cough CT DLP: 242.9 mGycm Automated exposure control for dose reduction was used. CONTRAST: CT Chest for pulmonary embolism performed with without and with IV Contrast, patient injected with 10 0 ml mL of Isovue 370. FINDINGS: There is evidence of coarse interstitial fibrosis throughout both lungs, unchanged from pre vious. There is no significant axillary adenopathy. There is some shotty mediastinal adenopathy. The heart is mildly enlarged. No pericardial fluid is seen. There is no evidence of pulmonary embolus. The aorta is normal in caliber without evidence of dissection. No pleural fluid is identified. Limited views of the upper abdomen are unremarkable. There is mild hypertrophic spondylosis within the spine. IMPRESSION: 1. THIS EXAMINATION IS NEGATIVE FOR PULMONARY EMBOLUS. 2. STABLE, COARSE INTERSTITIAL FIBROSIS. 3. MILD CARDIOMEGALY.
[2018-11-05] MEDS ORDERED: AZITHROMYCIN 500 MG TAB PO SCH (09:00)
[2018-11-05 10:17] VITALS: BMI 24.6
[2018-11-05] MEDS: CLOPIDOGREL 75 MG TAB PO SCH (11:40)
[2018-11-05] MEDS: PANTOPRAZOLE 40 MG TABLET PO SCH (11:40)
[2018-11-05] MEDS: SODIUM CHLORIDE 0.9% 1,000 ML IV SCH (11:40)
[2018-11-05] MEDS: ALLOPURINOL 300 MG TAB PO SCH (11:40)
[2018-11-05] MEDS: ASPIRIN 81 MG PO SCH (11:40)
[2018-11-05] MEDS: CHOLECALCIFEROL 1,000 UNIT TAB PO SCH (11:40)
[2018-11-05] MEDS: METOPROLOL TARTRATE 12.5 MG TAB PO SCH ×2 (11:40→20:33)
[2018-11-05] MEDS ORDERED: methylPREDNISolone SOD SUCCI 125 MG/2 ML VIAL IV SCH (12:00)
--- NOTE | 2018-11-05 15:15 | HP ---
HISTORY AND PHYSICAL CHIEF COMPLAINT: Shortness of breath. HISTORY OF PRESENT ILLNESS: This 83-year-old gentleman with past medical history of hypertension, hyperlipidemia, rheumatoid arthritis, history of gout, history of pulmonary fibrosis, being for Dr. Johnny Burton and Dr. Gupta in the outpatient setting, was complaining of shortness of breath since this morning. The patient has had some shortness of breath over the past several days which is increasing in intensity. Patient has a cough also which is largely nonproductive. The patient came to [facility] and was admitted for further evaluation and treatment. There is no history of any fever, rigor or chills. No history of headache, loss of consciousness, seizures. The patient was recently admitted to the hospital and was treated for pulmonary fibrosis, acute exacerbation. There was no evidence of pneumonia at that time. PAST MEDICAL HISTORY: 1. History of hypertension. 2. Hyperlipidemia. 3. History of GERD. 4. History of rheumatoid arthritis. 5. Gout. 6. Pulmonary fibrosis. HOME MEDICATIONS: 1. Prednisone taper and 5 mg p.o. daily. 2. PreserVision 1 capsule b.i.d. 3. Protonix 40 mg p.o. daily. 4. Zofran 4 mg q.8 p.r.n. 5. Lopressor 12.5 mg p.o. b.i.d. 6. Plavix 75 mg p.o. daily. 7. Zithromax 250 mg p.o. daily. 8. Ecotrin 81 mg daily. 9. Zyloprim 300 mg p.o. daily. ALLERGIES: NONE. FAMILY HISTORY: History of myocardial infarction and pulmonary fibrosis in the family. SOCIAL HISTORY: Previous history of smoking. No current smoking or alcohol intake. REVIEW OF SYSTEMS: ENT: Diminished hearing. Diminished vision. CARDIOVASCULAR SYSTEM: No angina, palpitations. RESPIRATORY SYSTEM: As mentioned earlier. GI: As mentioned earlier. : No dysuria or retention. NERVOUS SYSTEM: No numbness, weakness. ALLERGY/IMMUNOLOGY: No asthma, hayfever. MUSCULOSKELETAL: As mentioned earlier. HEMATOLOGY/ONCOLOGY: No history of anemia. ENDOCRINE: No history of diabetes, hypothyroidism. CONSTITUTIONAL: As mentioned earlier. DERMATOLOGY: Negative. RHEUMATOLOGY: Negative. PSYCHIATRY: As mentioned earlier. PHYSICAL EXAMINATION: Patient alert and oriented x3. The pulse is 81, blood pressure 128/74, respiration 18, temperature 97.4, pulse ox 94% on 3 L. HEENT: Conjunctivae normal. NECK: No jugular venous distention. CARDIOVASCULAR SYSTEM: S1, S2 muffled. RESPIRATORY SYSTEM: Breath sounds diminished at the bases. Bilateral scattered rhonchi and crackles. early inspiratory crackles in the posterior back side present. ABDOMEN: Soft, nontender. No mass palpable. LEGS: No edema. No swelling. NERVOUS SYSTEM: Higher functions as mentioned earlier. Moves all 4 limbs. No focal motor or sensory deficit. LYMPHATICS: No lymph node palpable in neck, axillae or groin. SKIN: No ulcer, rash, bleeding. LABS: WBC 13.7, hemoglobin 14.4. D-dimer is 0.88. Influenza is negative. CTA of the chest was negative for pulmonary embolism. Interstitial fibrosis, mild cardiomegaly. ASSESSMENT: 1. Shortness of breath, possibly pulmonary fibrosis, acute exacerbation. 2. Acute purulent tracheobronchitis. 3. History of gastroesophageal reflux disease. 4. Hypertension. 5. Hyperlipidemia. 6. History of rheumatoid arthritis. 7. History of gout. 8. History of pulmonary fibrosis. 9. Coronary artery disease, coronary artery bypass grafting. 10.History of skin cancer. 11.Remote history of nicotine dependence. RECOMMENDATIONS AND DISCUSSION: In this 83-year-old gentleman who presented with multiple complex medical issues , we will monitor the patient closely, continue the current management, continue with symptomatic treatment. Continue with the bronchodilators, empiric steroids. I would also recommend antibiotics. Otherwise, sputum culture. Consult Dr. Woodward, who is covering for Dr. Gupta. Further recommendations to follow. A copy of this dictation is being forwarded to And further forwarded to Dr. Johnny Burton's office. MMODL / IJN: [id number] / MTDD
[2018-11-05] MEDS: ALBUTEROL NEBULIZED 2.5 MG/3 ML INHALATION SCH ×2 (15:26→19:46)
[2018-11-05] MEDS: methylPREDNISolone SOD SUCCI 125 MG/2 ML VIAL IV SCH ×2 (15:36→20:33)
[2018-11-05 16:35] LABS: Appearance,Urine Clear (Clear); Bilirubin,Urine Negative (Negative); Blood,Urine Trace (Negative); Color,Urine Yellow; Glucose,Urine (UA) 4+ (Negative); Ketones,Urine Negative (Negative); Leukocyte Esterase,Urine Negative (Negative); Nitrite,Urine Negative (Negative); PH, Urine 5.5 (5.0-8.0); Protein,Urine Trace (Negative); RBC,Urine <1 /hpf (0-5); Specific Gravity,Urine 1.022 (1.001-1.035); Urobilinogen,Urine <2.0 mg/dL (<2.0); WBC,Urine 1 /hpf (0-5)
--- NOTE | 2018-11-05 16:57 | P.CNPUL ---
History of Present Illness Consult date: 11/05/18 Reason for consult: dyspnea History of present illness: 9-year-old male patient with known history of IPF in addition to RA, microscopic polyangiitis whereas been followed up at [facility] by Dr. Hsu,, hypertension and hyperlipidemia who has been followed up in our office for pulmonary fibrosis. The patient typically follows up with Dr. Gupta and he has received Cytoxan infusions for his rheumatoid arthritis. He is also on a maintenance prednisone of 5 mg on a daily basis. His last hospitalization was in March 2018. The patient came in to the emergency department this morning with increased shortness of breath and increased cough and. This has gotten worse over the past several days. The cough was largely nonproductive. No fever or chills. No chest pain or pleurisy. He is on 2 L of oxygen by nasal cannula secondary to his chronic pulmonary fibrosis. The patient's most recent pulmonary function test that showed an FVC of 63% of predicted and total lung capacity of 60% of predicted and diffusion capacity of 64% of predicted. The patient had contacted his primary care physician and the patient was given a course of Z-Rylan and a Medrol Dosepak on outpatient basis. Nevertheless he continued to have increased shortness of breath and this morning he was quite dyspneic and he decided to come into the hospital. He also reported some problems with his oxygen concentrator where he feels that the humidity chamber is malfunctioning and the patient has liquid being pumped into his sinuses and nose. Review of Systems Constitutional: Reports poor appetite, Reports weakness Eyes: denies blurred vision, denies decreased vision Ears: bilateral: decreased hearing Ears, nose, mouth and throat: Denies headache, Denies sore throat Cardiovascular: Denies chest pain, Denies shortness of breath Respiratory: Reports cough, Reports dyspnea, Reports home oxygen Gastrointestinal: Reports abdominal pain, Reports diarrhea Genitourinary: Reports as per HPI Musculoskeletal: Reports limitation of motion, Reports myalgias Integumentary: Denies pruritus, Denies rash Neurological: Denies numbness, Denies weakness Psychiatric: Denies anxiety, Denies depression Endocrine: Denies fatigue, Denies weight change Past Medical History Past Medical History: GERD/Reflux, Hyperlipidemia, Hypertension, Rheumatoid Arthritis (RA) Additional Past Medical History / Comment(s): Gout, pulmonary fibrosis , rheumatoid arthritis, gout, hypertension, hyperlipidemia, acid reflux, coronary artery bypass surgery for underlying coronary artery disease, history of skin cancer, 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 History of Any Multi-Drug Resistant Organisms: None Reported Past Surgical History: No Surgical Hx Reported Additional Past Surgical History / Comment(s): triple vessel cabg, skin cancer removed nose and lt shoulder, thom cataracts. Past Anesthesia/Blood Transfusion Reactions: No Reported Reaction Past Psychological History: No Psychological Hx Reported Smoking Status: Former smoker Past Alcohol Use History: Occasional Additional Past Alcohol Use History / Comment(s): started smoking at age 14 ( 1948)and quit 1963 smoked 1/2 ppd Past Drug Use History: None Reported - Past Family History Mother Additional Family Medical History / Comment(s): pulmonary fibrosis Father Family Medical History: Myocardial Infarction ([place]) Medications and Allergies Home Medications Medication Instructions Recorded Confirmed Type Allopurinol [Zyloprim] 300 mg PO DAILY 03/25/18 11/05/18 History Aspirin EC [Ecotrin Low Dose] 81 mg PO DAILY 03/25/18 11/05/18 History Clopidogrel [Plavix] 75 mg PO DAILY 03/25/18 11/05/18 History Metoprolol Tartrate [Lopressor] 12.5 mg PO BID 03/25/18 11/05/18 History Pantoprazole [Protonix] 40 mg PO DAILY 03/25/18 11/05/18 History Vit C/E/Zn/Coppr/Lutein/Zeaxan 1 cap PO DAILY 03/25/18 11/05/18 History [Preservision Areds 2 Softgel] predniSONE 5 mg PO DAILY 03/25/18 11/05/18 History Ondansetron Odt [Zofran ODT] 4 mg PO Q8HR PRN #10 tab 10/10/18 11/05/18 Rx Azithromycin [Zithromax Z-pack] 250 mg PO DAILY 11/05/18 11/05/18 History predniSONE See Taper PO DIRECTED 11/05/18 11/05/18 History Allergies Allergy/AdvReac Type Severity Reaction Status Date / Time No Known Allergies Allergy Verified 11/05/18 09:08 Physical Exam Vitals: Vital Signs Temp Pulse Pulse Resp BP BP Pulse Ox 11/05/18 14:14 80 11/05/18 14:06 80 11/05/18 12:51 97.5 F L 81 18 128/74 95 11/05/18 11:18 87 17 11/05/18 09:20 97.6 F 87 17 143/63 95 11/05/18 08:30 98 F 11/05/18 08:00 103 H 30 H 133/85 96 11/05/18 07:30 121/73 11/05/18 06:40 90 20 121/73 96 11/05/18 05:26 89 20 11/05/18 05:20 89 19 97 11/05/18 04:50 94 19 120/87 94 L 11/05/18 04:46 101 H 19 11/05/18 04:35 99 F 104 H 20 154/77 89 L Intake and Output 11/04/18 11/05/18 11/05/18 22:59 06:59 14:59 Other: Weight 77.111 kg 78 kg - Constitutional General appearance: average body habitus - EENT Eyes: EOMI, PERRLA ENT: hard of hearing Ears: bilateral: normal - Neck Neck: normal ROM, Neck was supple and without jugular venous distension, thyromegaly, or carotid bruits. Carotids were easily palpable bilaterally. There was no adenopathy. Carotids: bilateral: upstroke normal Thyroid: bilateral: normal size - Respiratory Respiratory: bilateral: diminished, rales, course crackles especially in the mid and lower lung mejia bilaterally. - Cardiovascular Rhythm: regular Heart sounds: normal: S1, S2 - Gastrointestinal General gastrointestinal: normal bowel sounds Localized gastrointestinal: tender: diffuse - Integumentary Integumentary: normal turgor, my normal skin - Neurologic Neurologic: CNII-XII intact - Musculoskeletal Musculoskeletal: generalized weakness - Psychiatric Psychiatric: A&O x's 3, intact judgment & insight Results - Laboratory Findings CBC and BMP: 11/05/18 05:20 11/05/18 05:20 PT/INR, D-dimer PT 11.3 sec (9.0-12.0) 11/05/18 05:20 INR 1.1 (<1.2) 11/05/18 05:20 D-Dimer 0.88 mg/L FEU (<0.60) H 11/05/18 05:20 Abnormal lab findings: Abnormal Labs 11/05/18 11/05/1819 05:20 05:20 05:20 WBC 13.7 H Neutrophils # 11.3 H D-Dimer 0.88 H BUN Glucose Total Creatine Kinase 21 L 11/05/18 05:20 WBC Neutrophils # D-Dimer BUN 22 H Glucose 102 H Total Creatine Kinase - Diagnostic Findings Chest x-ray: image reviewed CT scan - chest: image reviewed Assessment and Plan Plan: Assessment 1 acute shortness of breath secondary probably related to worsening in his pulmonary fibrosis. CAT scan of the chest did not reveal any major interval change in the extent of fibrosis over the past 6 months. There is no evidence of any airspace disease or pneumonia. Another possibility includes malfunctioning of his oxygen concentrator. This is to be checked at a later stage. The patient has completed a course of Z-Rylan and a Medrol Dosepak on outpatient basis. Currently is on a combination of Rocephin IV and IV Solu- Medrol. 2 pulmonary fibrosis with chronic hypoxic respiratory failure maintained on 2 L of oxygen nasal cannula 3 rheumatoid arthritis 4 hypertension 5 hyperlipidemia 6 coronary artery disease 7 gout Plan Continue current treatment. We'll ask the DME to check the patient's home oxygen concentrator to make sure it is functioning appropriately. Transition this patient to oral prednisone as of tomorrow. Continue to follow.
[2018-11-05 17:14] LABS: Glucose,Whole Blood 261 mg/dL (75-99)
[2018-11-05] MEDS: INSULIN ASPART 100 UNIT/ML 1 ML 10 ML VIAL SQ SCH ×2 (18:23→20:32)
[2018-11-05] MEDS: HEPARIN SODIUM,PORCINE 5,000 UNIT/ML 1 ML VIAL SQ SCH ×2 (18:23→23:46)
[2018-11-05] MEDS ORDERED: ATORVASTATIN 10 MG TAB PO SCH (18:30)
[2018-11-05 20:30] LABS: Glucose,Whole Blood 236 mg/dL (75-99)
[2018-11-05 23:53] LABS: Hemoglobin A1C 5.8 % (4.0-6.0)
[2018-11-06] MEDS: methylPREDNISolone SOD SUCCI 125 MG/2 ML VIAL IV SCH ×2 (03:16→07:49)
[2018-11-06 07:09] LABS: Glucose,Whole Blood 158 mg/dL (75-99)
[2018-11-06 07:39] LABS: Basophils % (A) 0 %; Eosinophils % (A) 0 %; HCT 44.2 % (39.0-53.0); HGB 14.1 gm/dL (13.0-17.5); Lymphocytes # (A) 0.7 k/uL (1.0-4.8); Lymphocytes % (A) 5 %; MCH 31.6 pg (25.0-35.0); MCHC 31.9 g/dL (31.0-37.0); Mean Platelet Volume 6.8; Monocytes # (A) 0.3 k/uL (0-1.0); Monocytes % (A) 2 %; Neutrophils # (A) 12.6 k/uL (1.3-7.7); Neutrophils % (A) 93 %; Platelet Count 217 k/uL (150-450); RBC 4.47 m/uL (4.30-5.90); WBC 13.6 k/uL (3.8-10.6)
[2018-11-06] MEDS: PANTOPRAZOLE 40 MG TABLET PO SCH (07:40)
[2018-11-06] MEDS: INSULIN ASPART 100 UNIT/ML 1 ML 10 ML VIAL SQ SCH ×2 (07:41→12:31)
[2018-11-06] MEDS: SODIUM CHLORIDE 0.9% 1,000 ML IV SCH (07:44)
[2018-11-06 07:47] LABS: Anion Gap 8 mmol/L; Blood Urea Nitrogen 25 mg/dL (9-20); Calcium 9.3 mg/dL (8.4-10.2); Carbon Dioxide 31 mmol/L (22-30); Chloride 102 mmol/L (98-107); Glucose 164 mg/dL (74-99); Potassium 4.9 mmol/L (3.5-5.1); Sodium 141 mmol/L (137-145)
[2018-11-06] MEDS: ALLOPURINOL 300 MG TAB PO SCH (07:48)
[2018-11-06] MEDS: METOPROLOL TARTRATE 12.5 MG TAB PO SCH (07:48)
[2018-11-06] MEDS: CLOPIDOGREL 75 MG TAB PO SCH (07:48)
[2018-11-06] MEDS: CHOLECALCIFEROL 1,000 UNIT TAB PO SCH (07:48)
[2018-11-06] MEDS: HEPARIN SODIUM,PORCINE 5,000 UNIT/ML 1 ML VIAL SQ SCH (07:49)
[2018-11-06] MEDS: ASPIRIN 81 MG PO SCH (07:49)
[2018-11-06] MEDS: ALBUTEROL NEBULIZED 2.5 MG/3 ML INHALATION SCH ×3 (08:01→15:51)
--- NOTE | 2018-11-06 11:09 | P.PN ---
Subjective Progress Note Date: 11/06/18 Principal diagnosis: Dyspnea related to worsening in pulmonary fibrosis 83-year-old male patient with known history of IPF in addition to RA, microscopic polyangiitis whereas been followed up at [facility] by Dr. Hsu,, hypertension and hyperlipidemia who has been followed up in our office for pulmonary fibrosis. The patient typically follows up with Dr. Gupta and he has received Cytoxan infusions for his rheumatoid arthritis. He is also on a maintenance prednisone of 5 mg on a daily basis. His last hospitalization was in March 2018. The patient came in to the emergency department this morning with increased shortness of breath and increased cough and. This has gotten worse over the past several days. The cough was largely nonproductive. No fever or chills. No chest pain or pleurisy. He is on 2 L of oxygen by nasal cannula secondary to his chronic pulmonary fibrosis. The patient's most recent pulmonary function test that showed an FVC of 63% of predicted and total lung capacity of 60% of predicted and diffusion capacity of 64% of predicted. The patient had contacted his primary care physician and the patient was given a course of Z-Rylan and a Medrol Dosepak on outpatient basis. Nevertheless he continued to have increased shortness of breath and this morning he was quite dyspneic and he decided to come into the hospital. He also reported some problems with his oxygen concentrator where he feels that the humidity chamber is malfunctioning and the patient has liquid being pumped into his sinuses and nose. On 11/06/2018 patient seen in follow-up on medical surgical floor. Patient is on room air, his breathing is improving. Patient was up ambulating to the bathroom and about the room, with no significant distress, lung sounds are positive for coarse inspiratory crackles related to his history of idiopathic pulmonary fibrosis, vital signs are stable, no fever or chills, no rhonchi or wheezes. Patient has been treated with empiric antibiotics, IV steroids, nebulized bronchodilators, and responded well to treatments. From pulmonary perspective patient stable for discharge home today. Objective - Vital Signs Vital signs: Vital Signs Temp 97.5 F L 11/06/18 05:00 Pulse 78 11/06/18 08:10 Resp 20 11/06/18 05:00 BP 111/62 11/06/18 05:00 Pulse Ox 97 11/06/18 05:00 Intake & Output 11/05/18 11/06/18 11/06/18 18:59 06:59 18:59 Intake Total 410 1190 Balance 410 1190 Weight 78 kg 78 kg Intake: Intake, IV Titration 170 180 Amount Sodium Chloride 0.9% 1, 120 180 000 ml @ 20 mls/hr IV . Q24H [facility] Rx#:[id number] cefTRIAXone 1,000 mg In 50 Sodium Chloride 0.9% 50 ml @ 100 mls/hr IVPB Q24HR [facility] Rx#:[id number] Oral 240 1010 Other: # Voids 2 1 - Exam - Constitutional General appearance: average body habitus - EENT Eyes: EOMI, PERRLA ENT: hard of hearing Ears: bilateral: normal - Neck Neck: normal ROM, Neck was supple and without jugular venous distension, thyromegaly, or carotid bruits. Carotids were easily palpable bilaterally. There was no adenopathy. Carotids: bilateral: upstroke normal Thyroid: bilateral: normal size - Respiratory Respiratory: bilateral: diminished, rales, course crackles especially in the mid and lower lung mejia bilaterally. - Cardiovascular Rhythm: regular Heart sounds: normal: S1, S2 - Gastrointestinal General gastrointestinal: normal bowel sounds Localized gastrointestinal: tender: diffuse - Integumentary Integumentary: normal turgor, my normal skin - Neurologic Neurologic: CNII-XII intact - Musculoskeletal Musculoskeletal: generalized weakness - Psychiatric Psychiatric: A&O x's 3, intact judgment & insight - Labs CBC & Chem 7: 11/06/18 06:52 11/06/18 06:52 Labs: Abnormal Lab Results - Last 24 Hours (Table) 11/05/18 11/05/18 11/05/18 Range/Units 16:20 17:13 20:29 WBC (3.8-10.6) k/uL Neutrophils # (1.3-7.7) k/uL Lymphocytes # (1.0-4.8) k/uL Carbon Dioxide (22-30) mmol/L BUN (9-20) mg/dL Glucose (74-99) mg/dL POC Glucose (mg/dL) 261 H 236 H (75-99) mg/dL Urine Protein Trace H (Negative) Urine Glucose (UA) 4+ H (Negative) Urine Blood Trace H (Negative) 11/06/18 11/06/18 11/06/18 Range/Units 06:52 06:52 07:06 WBC 13.6 H (3.8-10.6) k/uL Neutrophils # 12.6 H (1.3-7.7) k/uL Lymphocytes # 0.7 L (1.0-4.8) k/uL Carbon Dioxide 31 H (22-30) mmol/L BUN 25 H (9-20) mg/dL Glucose 164 H (74-99) mg/dL POC Glucose (mg/dL) 158 H (75-99) mg/dL Urine Protein (Negative) Urine Glucose (UA) (Negative) Urine Blood (Negative) Assessment and Plan Plan: 1 acute shortness of breath secondary probably related to worsening in his pulmonary fibrosis. CAT scan of the chest did not reveal any major interval change in the extent of fibrosis over the past 6 months. There is no evidence of any airspace disease or pneumonia. Another possibility includes malfunctioning of his oxygen concentrator. This is to be checked at a later stage. The patient has completed a course of Z-Rylan and a Medrol Dosepak on outpatient basis. Currently is on a combination of Rocephin IV and IV Solu- Medrol. 2 pulmonary fibrosis with chronic hypoxic respiratory failure maintained on 2 L of oxygen nasal cannula 3 rheumatoid arthritis 4 hypertension 5 hyperlipidemia 6 coronary artery disease 7 gout Plan: From pulmonary standpoint patient is stable, he is improving, breathing easier, vital signs are stable, he can continue on outpatient course of oral antibiotics , short course of prednisone burst and taper, patient is having a new concentrator delivered to his house later on today. He can be discharged home from pulmonary perspective, follow up with Dr. Dr. Gupta in the office in 7-10 days I performed a history & physical examination of the patient and discussed their management with my nurse practitioner, Selena Castro. I reviewed the nurse practitioner's note and agree with the documented findings and plan of care. Lung sounds are positive for coarse inspiratory crackles. The findings and the impression was discussed with the patient. I attest to the documentation by the nurse practitioner. Time with Patient: Less than 30
[2018-11-06 11:18] LABS: Glucose,Whole Blood 171 mg/dL (75-99)
[2018-11-06 12:09] VITALS: BP 94/49; PULSE 83; RESP 17; TEMP 97.9
--- NOTE | 2018-11-06 22:25 | DS ---
DISCHARGE SUMMARY DATE OF SERVICE: 11/06/2018 FINAL DIAGNOSES: 1. Shortness of breath, possible pulmonary fibrosis acute exacerbation. 2. Possible chronic obstructive pulmonary disease acute exacerbation. 3. Acute purulent tracheobronchitis. 4. History of gastroesophageal reflux disease. 5. Hypertension. 6. Hyperlipidemia. 7. History of rheumatoid arthritis. 8. History of gout. 9. History of pulmonary fibrosis. 10.Coronary artery disease/coronary artery bypass grafting. 11.History of skin cancer. 12.Remote history of nicotine dependence. DISCHARGE DISPOSITION: Patient is being discharged in stable condition with guarded prognosis. Dr. Woodward cleared the patient for discharge. Patient improved clinically. HISTORY OF PRESENT ILLNESS: This 83-year-old gentleman with a past medical history of multiple medical problems being followed by Dr. Johnny Burton and Dr. Gupta in the outpatient setting was admitted with shortness of breath. The patient treated with bronchodilators and steroids. Patient improved significantly. The possibility of COPD was also considered. On exam, vital signs are stable. Cardiovascular S1, S2. Abdomen soft. Respiratory system: Few basilar crackles. The patient being discharged in stable condition. Guarded prognosis. DISCHARGE ADVICE AND MEDICATION: 1. Diet is cardiac diet. 2. Activity limited until followup. 3. Follow with Dr. Gupta in 1-2 days. 4. Follow up with Dr. Johnny Burton as mentioned earlier. MEDICATIONS: 1. Zyloprim 300 mg p.o. daily. 2. Ecotrin 81 mg. 3. Zithromax 250 mg daily, finish home dose. 4. Plavix 75 mg p.o. daily. 5. Lopressor 12.5 mg b.i.d. 6. Protonix 40 mg. 7. Prednisone 5 mg p.o. daily, 20 mg taper as before. 8. Vitamin C, E, zinc, as before. 9. Ventolin 2.5 q.i.d. and p.r.n. 10.Lipitor 10 mg p.o. supper. 11.Ceftin 500 mg b.i.d. for 3 days. 12.Zofran 4 mg q.8h p.r.n. Once again, the patient is being discharged in stable condition with guarded prognosis. MMODL / IJN: [id number] /
== END 2018-11-06 15:45 | disposition home or self-care (01) | DRG 197 ==
LOC: EC 04:31 → 3NMEDONC 07:42
PROVIDERS: ADMIT Hospitalist; ATTEND Hospitalist
DX: J84.112 Idiopathic pulmonary fibrosis (principal); J44.1 Chronic obstructive pulmonary disease with (acute) exacerbation; J96.11 Chronic respiratory failure with hypoxia; M31.7 Microscopic polyangiitis; M06.9 Rheumatoid arthritis, unspecified; J20.9 Acute bronchitis, unspecified; I71.4 Abdominal aortic aneurysm, without rupture; K21.9 Gastro-esophageal reflux disease without esophagitis; I10 Essential (primary) hypertension; E78.5 Hyperlipidemia, unspecified; M10.9 Gout, unspecified; H91.90 Unspecified hearing loss, unspecified ear; I25.10 Atherosclerotic heart disease of native coronary artery without angina pectoris; Z99.81 Dependence on supplemental oxygen; Z79.82 Long term (current) use of aspirin; Z79.02 Long term (current) use of antithrombotics/antiplatelets; Z79.52 Long term (current) use of systemic steroids; Z79.899 Other long term (current) drug therapy; Z95.1 Presence of aortocoronary bypass graft; Z85.828 Personal history of other malignant neoplasm of skin; Z87.891 Personal history of nicotine dependence; Z98.42 Cataract extraction status, left eye; Z98.41 Cataract extraction status, right eye; Z82.49 Family history of ischemic heart disease and other diseases of the circulatory system; Z83.6 Family history of other diseases of the respiratory system
CPT/HCPCS: 36415; 71046; 71275; 80048; 80053; 81001; 82550; 82553; 83036; 83880; 84484; 85025; 85379; 85610; 85730; 87040; 87502; 93005; 94640; 96374; 99285

== ENCOUNTER 2018-11-20 03:11 | Inpatient (IN) | payer MEDICARE, BC ==
[2018-11-20] MEDS ORDERED: IPRATROPIUM-ALBUTEROL 3 ML NEB INHALATION STA (03:22)
--- NOTE | 2018-11-20 03:24 | ED ---
Weakness HPI - General Chief complaint: Weakness Stated complaint: Weakness/DEANDRE Time Seen by Provider: 11/20/18 03:18 Source: patient, RN notes reviewed, old records reviewed Mode of arrival: wheelchair Limitations: no limitations - History of Present Illness Initial comments: This is an 83 male to the ED co weakiness and SOB, no fever, incrase cough and congestion. History of same, pulmonary fibrosis. No pain. No recent change in medicaions, just revently off steroids Complaint: generalized weakness, lack of energy -: days(s) Location: generalized Severity: moderate Severity scale (1-10): 5 Quality: other (no pain) Consistency: constant Improves with: none Worsens with: movement Context: history of similar Associated Symptoms: shortness of breath - Related Data Home Medications Medication Instructions Recorded Confirmed Allopurinol [Zyloprim] 300 mg PO DAILY 03/25/18 11/20/18 Aspirin EC [Ecotrin Low Dose] 81 mg PO DAILY 03/25/18 11/20/18 Clopidogrel [Plavix] 75 mg PO DAILY 03/25/18 11/20/18 Metoprolol Tartrate [Lopressor] 12.5 mg PO BID 03/25/18 11/20/18 Pantoprazole [Protonix] 40 mg PO DAILY 03/25/18 11/20/18 Vit C/E/Zn/Coppr/Lutein/Zeaxan 1 cap PO DAILY 03/25/18 11/20/18 [Preservision Areds 2 Softgel] predniSONE 5 mg PO DAILY 03/25/18 11/20/18 Benzonatate [Tessalon Perles] 200 mg PO TID 11/20/18 11/20/18 Promethazine HCl/Codeine 5 ml PO Q6H PRN 11/20/18 11/20/18 [Promethazine-Codeine Syrup] Previous Rx's Medication Instructions Recorded Ondansetron Odt [Zofran ODT] 4 mg PO Q8HR PRN #10 tab 10/10/18 Atorvastatin [Lipitor] 10 mg PO PC-SUPPER #30 tab 11/06/18 Allergies Allergy/AdvReac Type Severity Reaction Status Date / Time No Known Allergies Allergy Verified 11/20/18 08:28 Review of Systems ROS Statement: Those systems with pertinent positive or pertinent negative responses have been documented in the HPI. ROS Other: All systems not noted in ROS Statement are negative. 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 History of Any Multi-Drug Resistant Organisms: None Reported Past Surgical History: No Surgical Hx Reported Additional Past Surgical History / Comment(s): triple vessel cabg, skin cancer removed nose and lt shoulder, thom cataracts. Past Anesthesia/Blood Transfusion Reactions: No Reported Reaction Past Psychological History: No Psychological Hx Reported Smoking Status: Former smoker Past Alcohol Use History: Occasional Past Drug Use History: None Reported - Past Family History Mother Additional Family Medical History / Comment(s): pulmonary fibrosis Father Family Medical History: Myocardial Infarction ([place]) General Exam Limitations: no limitations General appearance: alert, in no apparent distress Head exam: Present: atraumatic, normocephalic, normal inspection Eye exam: Present: normal appearance, PERRL, EOMI. Absent: scleral icterus, conjunctival injection, periorbital swelling ENT exam: Present: normal exam, mucous membranes moist Neck exam: Present: normal inspection. Absent: tenderness, meningismus, lymphadenopathy Respiratory exam: Present: normal lung sounds bilaterally, wheezes, decreased breath sounds, prolonged expiratory. Absent: respiratory distress, rales, rhonchi, stridor Cardiovascular Exam: Present: regular rate, normal rhythm, normal heart sounds. Absent: systolic murmur, diastolic murmur, rubs, gallop, clicks GI/Abdominal exam: Present: soft, normal bowel sounds. Absent: distended, tenderness, guarding, rebound, rigid Extremities exam: Present: normal inspection, full ROM, normal capillary refill. Absent: tenderness, pedal edema, joint swelling, calf tenderness Back exam: Present: normal inspection Neurological exam: Present: alert, oriented X3, CN II-XII intact Psychiatric exam: Present: normal affect, normal mood Skin exam: Present: warm, dry, intact, normal color. Absent: rash Course Vital Signs 11/20/18 11/20/18 11/20/18 03:16 03:30 04:00 Temperature 98.9 F Pulse Rate 114 H 111 H 105 H Respiratory 24 15 20 Rate Blood Pressure 111/70 122/80 110/63 O2 Sat by Pulse 87 L 93 L Oximetry 11/20/18 11/20/18 11/20/18 04:06 04:15 04:26 Temperature Pulse Rate 105 H 99 93 Respiratory Rate Blood Pressure O2 Sat by Pulse Oximetry 11/20/18 11/20/18 11/20/18 04:30 05:00 05:30 Temperature Pulse Rate 106 H 96 100 Respiratory 19 41 H 42 H Rate Blood Pressure 110/66 105/55 127/58 O2 Sat by Pulse 96 96 95 Oximetry EKG Findings - EKG Comments: EKG Findings:: EKG shows sinus tachycardia rate 110, MI 134, QRS 86, QTc 443 Medical Decision Making - Medical Decision Making 83 male to the ED co weakenss and SOB w hypoxia, will admit for pulmonlogy eval - Lab Data Result diagrams: 11/21/18 06:13 11/21/18 06:13 Lab Results 11/20/18 11/20/18 11/20/18 Range/Units 03:44 03:44 03:44 WBC 21.2 H (3.8-10.6) k/uL RBC 4.58 (4.30-5.90) m/uL Hgb 14.6 (13.0-17.5) gm/dL Hct 44.2 (39.0-53.0) % MCV 96.5 (80.0-100.0) fL MCH 31.8 (25.0-35.0) pg MCHC 32.9 (31.0-37.0) g/dL RDW 14.3 (11.5-15.5) % Plt Count 225 (150-450) k/uL Neutrophils % 94 % Lymphocytes % 2 % Monocytes % 3 % Eosinophils % 1 % Basophils % 0 % Neutrophils # 19.9 H (1.3-7.7) k/uL Lymphocytes # 0.4 L (1.0-4.8) k/uL Monocytes # 0.5 (0-1.0) k/uL Eosinophils # 0.3 (0-0.7) k/uL Basophils # 0.1 (0-0.2) k/uL PT (9.0-12.0) sec INR (<1.2) APTT (22.0-30.0) sec Sodium 136 L (137-145) mmol/L Potassium 4.3 (3.5-5.1) mmol/L Chloride 101 (98-107) mmol/L Carbon Dioxide 30 (22-30) mmol/L Anion Gap 5 mmol/L BUN 26 H (9-20) mg/dL Creatinine 0.87 (0.66-1.25) mg/dL Est GFR (CKD-EPI)AfAm >90 (>60 ml/min/1.73 sqM) Est GFR (CKD-EPI)NonAf 81 (>60 ml/min/1.73 sqM) Glucose 129 H (74-99) mg/dL POC Glucose (mg/dL) (75-99) mg/dL POC Glu Manager Crisis ID Calcium 9.0 (8.4-10.2) mg/dL Magnesium 1.8 (1.6-2.3) mg/dL Total Bilirubin 1.6 H (0.2-1.3) mg/dL AST 35 (17-59) U/L ALT 42 (21-72) U/L Alkaline Phosphatase 98 (38-126) U/L Total Creatine Kinase <20 L (55-170) U/L CK-MB (CK-2) 0.4 (0.0-2.4) ng/mL CK-MB (CK-2) Rel Index Troponin I 0.012 (0.000-0.034) ng/mL NT-Pro-B Natriuret Pep pg/mL Total Protein 6.1 L (6.3-8.2) g/dL Albumin 3.6 (3.5-5.0) g/dL 11/20/18 11/20/18 11/20/18 Range/Units 03:44 03:44 11:13 WBC (3.8-10.6) k/uL RBC (4.30-5.90) m/uL Hgb (13.0-17.5) gm/dL Hct (39.0-53.0) % MCV (80.0-100.0) fL MCH (25.0-35.0) pg MCHC (31.0-37.0) g/dL RDW (11.5-15.5) % Plt Count (150-450) k/uL Neutrophils % % Lymphocytes % % Monocytes % % Eosinophils % % Basophils % % Neutrophils # (1.3-7.7) k/uL Lymphocytes # (1.0-4.8) k/uL Monocytes # (0-1.0) k/uL Eosinophils # (0-0.7) k/uL Basophils # (0-0.2) k/uL PT 11.2 (9.0-12.0) sec INR 1.1 (<1.2) APTT 23.5 (22.0-30.0) sec Sodium (137-145) mmol/L Potassium (3.5-5.1) mmol/L Chloride (98-107) mmol/L Carbon Dioxide (22-30) mmol/L Anion Gap mmol/L BUN (9-20) mg/dL Creatinine (0.66-1.25) mg/dL Est GFR (CKD-EPI)AfAm (>60 ml/min/1.73 sqM) Est GFR (CKD-EPI)NonAf (>60 ml/min/1.73 sqM) Glucose (74-99) mg/dL POC Glucose (mg/dL) 219 H (75-99) mg/dL POC Glu Manager Crisis ID Anglebrandt, Yanna Calcium (8.4-10.2) mg/dL Magnesium (1.6-2.3) mg/dL Total Bilirubin (0.2-1.3) mg/dL AST (17-59) U/L ALT (21-72) U/L Alkaline Phosphatase (38-126) U/L Total Creatine Kinase (55-170) U/L CK-MB (CK-2) (0.0-2.4) ng/mL CK-MB (CK-2) Rel Index Troponin I (0.000-0.034) ng/mL NT-Pro-B Natriuret Pep 522 pg/mL Total Protein (6.3-8.2) g/dL Albumin (3.5-5.0) g/dL 11/20/18 11/20/18 11/21/18 Range/Units 17:52 19:51 06:13 WBC 21.2 H (3.8-10.6) k/uL RBC 4.34 (4.30-5.90) m/uL Hgb 13.4 (13.0-17.5) gm/dL Hct 43.1 (39.0-53.0) % MCV 99.3 (80.0-100.0) fL MCH 31.0 (25.0-35.0) pg MCHC 31.2 (31.0-37.0) g/dL RDW 14.2 (11.5-15.5) % Plt Count 239 (150-450) k/uL Neutrophils % % Lymphocytes % % Monocytes % % Eosinophils % % Basophils % % Neutrophils # (1.3-7.7) k/uL Lymphocytes # (1.0-4.8) k/uL Monocytes # (0-1.0) k/uL Eosinophils # (0-0.7) k/uL Basophils # (0-0.2) k/uL PT (9.0-12.0) sec INR (<1.2) APTT (22.0-30.0) sec Sodium (137-145) mmol/L Potassium (3.5-5.1) mmol/L Chloride (98-107) mmol/L Carbon Dioxide (22-30) mmol/L Anion Gap mmol/L BUN (9-20) mg/dL Creatinine (0.66-1.25) mg/dL Est GFR (CKD-EPI)AfAm (>60 ml/min/1.73 sqM) Est GFR (CKD-EPI)NonAf (>60 ml/min/1.73 sqM) Glucose (74-99) mg/dL POC Glucose (mg/dL) 193 H 148 H (75-99) mg/dL POC Glu Manager Crisis ID Cacciola, Crystal Francis, Michelle Calcium (8.4-10.2) mg/dL Magnesium (1.6-2.3) mg/dL Total Bilirubin (0.2-1.3) mg/dL AST (17-59) U/L ALT (21-72) U/L Alkaline Phosphatase (38-126) U/L Total Creatine Kinase (55-170) U/L CK-MB (CK-2) (0.0-2.4) ng/mL CK-MB (CK-2) Rel Index Troponin I (0.000-0.034) ng/mL NT-Pro-B Natriuret Pep pg/mL Total Protein (6.3-8.2) g/dL Albumin (3.5-5.0) g/dL 11/21/18 11/21/18 Range/Units 06:13 06:40 WBC (3.8-10.6) k/uL RBC (4.30-5.90) m/uL Hgb (13.0-17.5) gm/dL Hct (39.0-53.0) % MCV (80.0-100.0) fL MCH (25.0-35.0) pg MCHC (31.0-37.0) g/dL RDW (11.5-15.5) % Plt Count (150-450) k/uL Neutrophils % % Lymphocytes % % Monocytes % % Eosinophils % % Basophils % % Neutrophils # (1.3-7.7) k/uL Lymphocytes # (1.0-4.8) k/uL Monocytes # (0-1.0) k/uL Eosinophils # (0-0.7) k/uL Basophils # (0-0.2) k/uL PT (9.0-12.0) sec INR (<1.2) APTT (22.0-30.0) sec Sodium 140 (137-145) mmol/L Potassium 4.8 (3.5-5.1) mmol/L Chloride 104 (98-107) mmol/L Carbon Dioxide 29 (22-30) mmol/L Anion Gap 7 mmol/L BUN 24 H (9-20) mg/dL Creatinine 0.71 (0.66-1.25) mg/dL Est GFR (CKD-EPI)AfAm >90 (>60 ml/min/1.73 sqM) Est GFR (CKD-EPI)NonAf 88 (>60 ml/min/1.73 sqM) Glucose 152 H (74-99) mg/dL POC Glucose (mg/dL) 141 H (75-99) mg/dL POC Glu Manager Crisis ID Jenny Roselyn Calcium 9.4 (8.4-10.2) mg/dL Magnesium (1.6-2.3) mg/dL Total Bilirubin (0.2-1.3) mg/dL AST (17-59) U/L ALT (21-72) U/L Alkaline Phosphatase (38-126) U/L Total Creatine Kinase (55-170) U/L CK-MB (CK-2) (0.0-2.4) ng/mL CK-MB (CK-2) Rel Index Troponin I (0.000-0.034) ng/mL NT-Pro-B Natriuret Pep pg/mL Total Protein (6.3-8.2) g/dL Albumin (3.5-5.0) g/dL Disposition Clinical Impression: Pulmonary fibrosis, Acute respiratory failure with hypoxia, Leukocytosis Disposition: ADMITTED IP TO THIS HOSP Condition: Fair Is patient prescribed a controlled substance at d/c from ED?: No
--- NOTE | 2018-11-20 03:49 | XR ---
EXAMINATION TYPE: XR chest 1V portable DATE OF EXAM: 11/20/2018 COMPARISON: 11/05/2018 HISTORY: Short of breath TECHNIQUE: Single frontal view of the chest is obtained. FINDINGS: There is general coarsening of interstitial markings. There is sternal wires. There are ch est leads. Pulmonary vascularity is difficult to evaluate because of the extensive lung disease. I se e no definite heart failure. IMPRESSION: Advanced pulmonary fibrosis. No definite acute lung disease. No change compared to old e xam.
[2018-11-20 03:55] LABS: Basophils # (A) 0.1 k/uL (0-0.2); Basophils % (A) 0 %; Eosinophils # (A) 0.3 k/uL (0-0.7); Eosinophils % (A) 1 %; HCT 44.2 % (39.0-53.0); HGB 14.6 gm/dL (13.0-17.5); Lymphocytes # (A) 0.4 k/uL (1.0-4.8); Lymphocytes % (A) 2 %; MCH 31.8 pg (25.0-35.0); MCHC 32.9 g/dL (31.0-37.0); MCV 96.5 fL (80.0-100.0); Mean Platelet Volume 6.1; Monocytes # (A) 0.5 k/uL (0-1.0); Monocytes % (A) 3 %; Neutrophils # (A) 19.9 k/uL (1.3-7.7); Neutrophils % (A) 94 %; Platelet Count 225 k/uL (150-450); RBC 4.58 m/uL (4.30-5.90); RDW 14.3 % (11.5-15.5); WBC 21.2 k/uL (3.8-10.6)
[2018-11-20 04:05] LABS: INR 1.1 (<1.2); Partial Thromboplastin Time 23.5 sec (22.0-30.0); Prothrombin Time 11.2 sec (9.0-12.0)
[2018-11-20 04:06] LABS: ALT 42 U/L (21-72); AST 35 U/L (17-59); Albumin 3.6 g/dL (3.5-5.0); Alkaline Phosphatase 98 U/L (38-126); Anion Gap 5 mmol/L; Blood Urea Nitrogen 26 mg/dL (9-20); Carbon Dioxide 30 mmol/L (22-30); Chloride 101 mmol/L (98-107); Glucose 129 mg/dL (74-99); Magnesium 1.8 mg/dL (1.6-2.3); Potassium 4.3 mmol/L (3.5-5.1); Sodium 136 mmol/L (137-145); Total Bilirubin 1.6 mg/dL (0.2-1.3); Total Protein 6.1 g/dL (6.3-8.2)
[2018-11-20 04:17] LABS: Creatine Kinase <20 U/L (55-170)
[2018-11-20 04:30] LABS: Creatine Kinase MB 0.4 ng/mL (0.0-2.4); Troponin I 0.012 ng/mL (0.000-0.034)
[2018-11-20] MEDS ORDERED: SODIUM CHLORIDE 0.9% 1,000 ML IV STA (04:33)
[2018-11-20] MEDS ORDERED: DEXAMETHASONE SOD PHOSPHATE 10 MG/ML 1 ML VIAL IV STA (04:33)
[2018-11-20] MEDS ORDERED: methylPREDNISolone SOD SUCCI 125 MG/2 ML VIAL IV STA (05:27)
[2018-11-20] MEDS ORDERED: IPRATROPIUM-ALBUTEROL 3 ML NEB INHALATION SCH (08:00)
[2018-11-20] MEDS: methylPREDNISolone SOD SUCCI 125 MG/2 ML VIAL IV SCH ×4 (08:22→23:18)
[2018-11-20] MEDS: ENOXAPARIN 40 MG/0.4 ML SYRINGE SQ SCH (10:08)
[2018-11-20] MEDS: AZITHROMYCIN 500 MG TAB PO SCH (10:08)
[2018-11-20 10:38] VITALS: BMI 23.1
[2018-11-20] MEDS ORDERED: ONDANSETRON ODT 4 MG TAB PO PRN (10:56)
[2018-11-20] MEDS ORDERED: guaiFENesin-Coden 100-10MG/5ML 10 ML CUP PO PRN (11:23)
[2018-11-20 11:26] LABS: Glucose,Whole Blood 219 mg/dL (75-99)
--- NOTE | 2018-11-20 11:38 | P.HPIM ---
History of Present Illness 83-year-old pleasant gentleman with known history of pulmonary fibrosis probably from systemic rheumatoid is also at nighttime with compensative shortness of breath. Never smoked doesn't have any history of COPD patient was started on high-dose of steroids patient will also started on's vancomycin may not be helpful. Patient is complaining of cough with whitish sputum production. Patient denied any fever chills patient does not have any pneumonia on the chest x-ray does have pulmonary fibrosis and the fine crackles on exam which is consistent with pulmonary fibrosis. She follows up in your was to [place] for systemic rheumatoid. Review of Systems REVIEW OF SYSTEMS: CONSTITUTIONAL: No fever, no malaise, no fatigue. HEENT: No recent visual problems or hearing problems. Denied any sore throat. CARDIOVASCULAR: No chest pain, orthopnea, PND, no palpitations, no syncope. PULMONARY:no hemoptysis. GASTROINTESTINAL: No diarrhea, no nausea, no vomiting, no abdominal pain. NEUROLOGICAL: No headaches, no weakness, no numbness. HEMATOLOGICAL: Denies any bleeding or petechiae. GENITOURINARY: Denies any burning micturition, frequency, or urgency. MUSCULOSKELETAL/RHEUMATOLOGICAL: Denies any joint pain, swelling, or any muscle pain. ENDOCRINE: Denies any polyuria or polydipsia. The rest of the 14-point review of systems is negative. 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 History of Any Multi-Drug Resistant Organisms: None Reported Past Surgical History: No Surgical Hx Reported Additional Past Surgical History / Comment(s): triple vessel cabg, skin cancer removed nose and lt shoulder, thom cataracts. Past Anesthesia/Blood Transfusion Reactions: No Reported Reaction Past Psychological History: No Psychological Hx Reported Smoking Status: Former smoker Past Alcohol Use History: Occasional Additional Past Alcohol Use History / Comment(s): started smoking at age 14 ( 1948)and quit 1963 smoked 1/2 ppd Past Drug Use History: None Reported - Past Family History Mother Additional Family Medical History / Comment(s): pulmonary fibrosis Father Family Medical History: Myocardial Infarction ([place]) Medications and Allergies Home Medications Medication Instructions Recorded Confirmed Type Allopurinol [Zyloprim] 300 mg PO DAILY 03/25/18 11/20/18 History Aspirin EC [Ecotrin Low Dose] 81 mg PO DAILY 03/25/18 11/20/18 History Clopidogrel [Plavix] 75 mg PO DAILY 03/25/18 11/20/18 History Metoprolol Tartrate [Lopressor] 12.5 mg PO BID 03/25/18 11/20/18 History Pantoprazole [Protonix] 40 mg PO DAILY 03/25/18 11/20/18 History Vit C/E/Zn/Coppr/Lutein/Zeaxan 1 cap PO DAILY 03/25/18 11/20/18 History [Preservision Areds 2 Softgel] predniSONE 5 mg PO DAILY 03/25/18 11/20/18 History Ondansetron Odt [Zofran ODT] 4 mg PO Q8HR PRN #10 tab 10/10/18 11/20/18 Rx Atorvastatin [Lipitor] 10 mg PO PC-SUPPER #30 tab 11/06/18 11/20/18 Rx Benzonatate [Tessalon Perles] 200 mg PO TID 11/20/18 11/20/18 History Promethazine HCl/Codeine 5 ml PO Q6H PRN 11/20/18 11/20/18 History [Promethazine-Codeine Syrup] Allergies Allergy/AdvReac Type Severity Reaction Status Date / Time No Known Allergies Allergy Verified 11/20/18 08:28 Physical Exam Vitals: Vital Signs Temp Pulse Pulse Resp BP BP Pulse Ox 11/20/18 08:59 90 11/20/18 08:49 87 97 11/20/18 08:23 97.6 F 89 16 132/70 97 11/20/18 05:30 100 42 H 127/58 95 11/20/18 05:00 96 41 H 105/55 96 11/20/18 04:30 106 H 19 110/66 96 11/20/18 04:26 93 11/20/18 04:15 99 11/20/18 04:06 105 H 11/20/18 04:00 105 H 20 110/63 11/20/18 03:30 111 H 15 122/80 93 L 11/20/18 03:16 98.9 F 114 H 24 111/70 87 L Intake and Output 11/19/18 11/20/18 11/20/18 22:59 06:59 14:59 Intake Total 480 Balance 480 Intake: Oral 480 Other: Weight 73.028 kg PHYSICAL EXAMINATION: GENERAL: The patient is alert and oriented x3, not in any acute distress. Well developed, well nourished. HEENT: Pupils are round and equally reacting to light. EOMI. No scleral icterus. No conjunctival pallor. Normocephalic, atraumatic. No pharyngeal erythema. No thyromegaly. CARDIOVASCULAR: S1 and S2 present. No murmurs, rubs, or gallops. PULMONARY: use crackles mostly in bilateral lower lung bases and predominantly in the posterior aspect of the lung mejia. ABDOMEN: Soft, nontender, nondistended, normoactive bowel sounds. No palpable organomegaly. MUSCULOSKELETAL: No joint swelling or deformity. EXTREMITIES: No cyanosis, clubbing, or pedal edema. NEUROLOGICAL: Gross neurological examination did not reveal any focal deficits. SKIN: No rashes. Results CBC & Chem 7: 11/20/18 03:44 11/20/18 03:44 Labs: Abnormal Lab Results - Last 24 Hours (Table) 11/20/18 11/20/18 11/20/18 Range/Units 03:44 03:44 03:44 WBC 21.2 H (3.8-10.6) k/uL Neutrophils # 19.9 H (1.3-7.7) k/uL Lymphocytes # 0.4 L (1.0-4.8) k/uL Sodium 136 L (137-145) mmol/L BUN 26 H (9-20) mg/dL Glucose 129 H (74-99) mg/dL POC Glucose (mg/dL) (75-99) mg/dL Total Bilirubin 1.6 H (0.2-1.3) mg/dL Total Creatine Kinase <20 L (55-170) U/L Total Protein 6.1 L (6.3-8.2) g/dL 11/20/18 Range/Units 11:13 WBC (3.8-10.6) k/uL Neutrophils # (1.3-7.7) k/uL Lymphocytes # (1.0-4.8) k/uL Sodium (137-145) mmol/L BUN (9-20) mg/dL Glucose (74-99) mg/dL POC Glucose (mg/dL) 219 H (75-99) mg/dL Total Bilirubin (0.2-1.3) mg/dL Total Creatine Kinase (55-170) U/L Total Protein (6.3-8.2) g/dL Thrombosis Risk Factor Assmnt - Choose All That Apply Any of the Below Risk Factors Present?: No Other Risk Factors: Yes Each Risk Factor Represents 3 Points: Age 75 years or older, Family history of DVT/PE Other congenital or acquired thrombophilia - If yes, enter type in comment: No Thrombosis Risk Factor Assessment Total Risk Factor Score: 6 Thrombosis Risk Factor Assessment Level: High Risk Assessment and Plan Plan: acute hypoxic respiratory failure: Secondary to pulmonary fibrosis patient is on systemic steroids which will be continued. These may not be much beneficial. Patient will need GI prophylaxis because of that patient's cough is from pulmonary fibrosiswill continue thousand support. -leukocytosis due to systemic steroids no evidence of pneumonia azithromycin may not be helpful -systemic rheumatoid disease -hypertension next and hyperlipidemia -Coronary artery disease patient had a CABG in the past patient is on both aspirin and Plavix which is not needed probably Plavix can be discontinued patient will need pharmacologic GI DVT prophylaxis.
--- NOTE | 2018-11-20 12:35 | CONS ---
CONSULTATION This is a pulmonary critical care consultation dated November 20, 2018. DATE OF CONSULTATION: 11/20/2018. REASON FOR CONSULTATION: Weakness and shortness of breath. HISTORY OF PRESENT ILLNESS: This is an 83-year-old male that I know well. He has a history of biopsy-proven pulmonary fibrosis. The patient comes into the emergency room complaining of shortness of breath and weakness. The patient comes into the emergency room on the 3rd complaining of shortness of breath. He also complains of profound weakness and coughing jags. Anyway, the patient was on OFEV but could not tolerate because of abdominal cramping and diarrhea. He does see a nicking machine operator at [facility] by the name of Dr. Hsu. For his rheumatoid arthritis, he does get Rituxan infusions every 6 months. He would like to see a nicking machine operator here in town if possible and have his blood work and his Rituxan infused here because it is becoming much more difficult for him to get around. He denies any fever, chills. The patient does have a significant cough and phlegm production. The phlegm is significant in quantity and yellow green in color. The patient denies any chest pain or chest discomfort. The patient states he feels a bit better this morning compared to when he came in last night at 2 o'clock in the morning. HOME MEDICATIONS: Include Zyloprim, low-dose aspirin, Plavix, Lopressor, Protonix, I-vitamins, prednisone 5 mg a day. Zithromax 250 mg a day and Zofran, and Lipitor. ALLERGIES: Denied. PAST MEDICAL HISTORY: Includes gastroesophageal reflux disease, hyperlipidemia, hypertension, and rheumatoid arthritis. He also has a history of gout and of course pulmonary fibrosis as I mentioned. He also has a history of CAD, status post bypass grafting, skin cancer, and abdominal aortic aneurysm. SURGICAL HISTORY: Includes among other things, triple-vessel bypass, skin cancer removal, shoulder surgery and bilateral cataract surgery. SOCIAL HISTORY: Positive for previous tobacco use. Does not drink. No illicit drug use. Medications have previously been mentioned. FAMILY HISTORY: It should also be pointed out that this family history is interesting that his mother from pulmonary fibrosis. Also, there is a history of myocardial infarction. REVIEW OF SYSTEMS: Constitutional: Weakness. Neurologic: Negative. HEENT negative. Cardiovascular negative. Pulmonary: Shortness of breath and cough with yellow green phlegm production. GI negative. negative. Rheumatologic negative. Immunologic negative. ENDOCRINOLOGIC negative. PHYSICAL EXAMINATION: VITAL SIGNS: Current vital signs include temperature 97.6. Heart rate 89, respiratory rate 16, blood pressure 132/70, mean 90. 3 L saturation 97%. GENERAL: Appears in no acute distress. HEENT examination is grossly unremarkable. Nasal O2 in place at 3 L. NECK: Supple. Full range of motion. No adenopathy or thyromegaly. CARDIOVASCULAR: Cardiovascular examination reveals regular rhythm rate. Heart rate about 85 beats per minute. It is regular. S1, S2 normal. No murmur. LUNGS: Some bibasilar crackles. Velcro in nature. He is restricted in his breathing. No rhonchi or wheezes. ABDOMEN: Soft. Bowel sounds are heard. EXTREMITIES are intact. No cyanosis, clubbing, or edema. SKIN is without rash. NEUROLOGIC examination is brief but nonfocal. LABS: Reviewed. White count 21.2, hemoglobin 14.6, hematocrit 44.2, platelet count 325,000. PT/INR were 11.2 and 1.1. PTT 23.5. Sodium 136, potassium 4.3, chloride 101, CO2 30, anion gap 5, BUN and creatinine were 26 and 0.87. Glucose 129, total protein 6.1. N terminal proBNP 522. Chest x-ray shows diffuse interstitial changes. This is compared to an x-ray that was done on 11/05/2018 The patient was last here in mid October. ASSESSMENT: 1. Shortness of breath, secondary to severe and progressive pulmonary fibrosis. The patient was intolerant of OFEV. 2. History of rheumatoid arthritis, being managed by Rheumatology at [facility] with every 6 month Rituxan infusions. 3. History of gastroesophageal reflux disease. 4. History of hyperlipidemia. 5. History of hypertension. 6. History of gout. 7. Coronary artery disease with previous bypass grafting. 8. History of skin cancer. 9. History of abdominal aortic aneurysm. PLAN: The patient's medications are reviewed. He states breathing treatments do not help, so we will discontinue those. We likely will stop his prednisone and put him on some Solu- Medrol. No additional recommendations are made. Prognosis is guarded given the fact that he was intolerant of the OFEV. We will continue to follow. Follow with me in the office once discharged from the hospital. I answered all their questions today. They had at least 6 to 8 questions of me today. Again, all are being answered. MMODL / IJN: [id number] /
[2018-11-20] MEDS: PANTOPRAZOLE 40 MG TABLET PO SCH (13:17)
[2018-11-20] MEDS: INSULIN ASPART (NovoLOG) 100 UNIT/ML VIAL SQ SCH ×3 (13:18→21:30)
[2018-11-20] MEDS: BENZONATATE 100 MG CAP PO SCH ×2 (16:09→21:30)
[2018-11-20 18:03] LABS: Glucose,Whole Blood 193 mg/dL (75-99)
[2018-11-20] MEDS: ATORVASTATIN 10 MG TAB PO SCH (18:06)
[2018-11-20] MEDS ORDERED: VANCOMYCIN IV PER PHARMACY 1 EACH MISC MISCELLANE PRN (18:20)
[2018-11-20] MEDS ORDERED: SODIUM CHLORIDE 0.65% NASAL SPRAY 44 ML BTL NASAL PRN (18:25)
[2018-11-20] MEDS ORDERED: VANCOMYCIN 1,500 MG in SODIUM CHLORIDE 0.9% 250 ML IVPB ONE (19:00)
[2018-11-20 20:02] LABS: Glucose,Whole Blood 148 mg/dL (75-99)
[2018-11-20] MEDS: METOPROLOL TARTRATE 12.5 MG TAB PO SCH (21:30)
[2018-11-21] MEDS: methylPREDNISolone SOD SUCCI 125 MG/2 ML VIAL IV SCH ×4 (05:40→23:15)
[2018-11-21] MEDS ORDERED: VANCOMYCIN 1,250 MG in SODIUM CHLORIDE 0.9% 250 ML IVPB SCH (06:00)
[2018-11-21 06:55] LABS: HCT 43.1 % (39.0-53.0); HGB 13.4 gm/dL (13.0-17.5); MCHC 31.2 g/dL (31.0-37.0); MCV 99.3 fL (80.0-100.0); Mean Platelet Volume 6.4; Platelet Count 239 k/uL (150-450); RBC 4.34 m/uL (4.30-5.90); RDW 14.2 % (11.5-15.5); WBC 21.2 k/uL (3.8-10.6)
[2018-11-21 06:56] LABS: Glucose,Whole Blood 141 mg/dL (75-99)
[2018-11-21 07:13] LABS: Anion Gap 7 mmol/L; Blood Urea Nitrogen 24 mg/dL (9-20); Calcium 9.4 mg/dL (8.4-10.2); Carbon Dioxide 29 mmol/L (22-30); Chloride 104 mmol/L (98-107); Glucose 152 mg/dL (74-99); Potassium 4.8 mmol/L (3.5-5.1); Sodium 140 mmol/L (137-145)
[2018-11-21] MEDS: METOPROLOL TARTRATE 12.5 MG TAB PO SCH ×2 (08:22→20:27)
[2018-11-21] MEDS: INSULIN ASPART (NovoLOG) 100 UNIT/ML VIAL SQ SCH ×4 (08:22→21:37)
[2018-11-21] MEDS: ENOXAPARIN 40 MG/0.4 ML SYRINGE SQ SCH (08:22)
[2018-11-21] MEDS: PANTOPRAZOLE 40 MG TABLET PO SCH (08:23)
[2018-11-21] MEDS: VIT A,C & E-LUTEIN-MINERALS 1 EACH TAB PO SCH (08:23)
[2018-11-21] MEDS: AZITHROMYCIN 500 MG TAB PO SCH (08:23)
[2018-11-21] MEDS: ALLOPURINOL 300 MG TAB PO SCH (08:25)
[2018-11-21] MEDS: BENZONATATE 100 MG CAP PO SCH ×3 (08:25→21:37)
[2018-11-21] MEDS: ASPIRIN 81 MG PO SCH (08:25)
[2018-11-21] MEDS ORDERED: CLOPIDOGREL 75 MG TAB PO SCH (09:00)
[2018-11-21 12:15] LABS: Glucose,Whole Blood 112 mg/dL (75-99)
[2018-11-21] MEDS: cefTRIAXone 2,000 MG in SODIUM CHLORIDE 0.9% 100 ML IVPB SCH (14:26)
--- NOTE | 2018-11-21 14:31 | P.PN ---
Subjective Progress Note Date: 11/21/18 Principal diagnosis: Weakness, shortness of breath This 83-year-old white male patient of Dr. Adolfo Burton, with past medical history of biopsy-proven pulmonary fibrosis, GERD, hypertension, hyperlipidemia , and rheumatoid arthritis who was admitted to the hospital on 11/20/2018 after presenting with symptoms of weakness, and weakness of shortness of breath. Patient was having trouble ambulating, was complaining of coughing jags, phlegm production. Denied any fever or chills. Chest x-ray showed advanced pulmonary fibrosis, but no definite acute lung disease. Labs showed white blood cell count of 21.2, hemoglobin 14.6, INR 1.1, sodium was 136, the rest of electrolytes were within normal limits, B1 is 26 and creatinine 0.87, troponin was negative, proBNP was 522. Patient was placed on empiric antibiotics, in the form of Zithromax, nebulized bronchodilators, cough syrup, and the steroids. Blood culture showed Streptococcus pneumoniae, today we switched his antibiotic coverage from Zithromax to Rocephin 2 g daily, and IV vancomycin was started. Objective - Vital Signs Vital signs: Vital Signs Temp 97.4 F L 11/21/18 08:13 Pulse 100 11/21/18 08:13 Resp 20 11/21/18 08:13 BP 142/85 11/21/18 08:13 Pulse Ox 93 L 11/21/18 08:13 Intake & Output 11/20/18 11/21/18 11/21/18 18:59 06:59 18:59 Intake Total 780 1000 Balance 780 1000 Intake: Intake, IV Titration 500 Amount Vancomycin 1,250 mg In 250 Sodium Chloride 0.9% 250 ml @ 125 mls/hr IVPB Q12H [facility] Rx#:[id number] Vancomycin 1,500 mg In 250 Sodium Chloride 0.9% 250 ml @ 125 mls/hr IVPB ONCE ONE Rx#:[id number] Oral 780 500 Other: # Voids 3 1 - Exam GENERAL EXAM: Alert, pleasant, 83-year-old white male on, comfortable in no apparent distress. HEAD: Normocephalic/atraumatic. EYES: Normal reaction of pupils, equal size. Conjunctiva pink, sclera white. NOSE: Clear with pink turbinates. THROAT: No erythema or exudates. NECK: No masses, no JVD, no thyroid enlargement, no adenopathy. CHEST: No chest wall deformity. Symmetrical expansion. LUNGS: Equal air entry with coarse Velcro-like inspiratory crackles at bilateral bases CVS: Regular rate and rhythm, normal S1 and S2, no gallops, no murmurs, no rubs ABDOMEN: Soft, nontender. No hepatosplenomegaly, normal bowel sounds, no guarding or rigidity. EXTREMITIES: No clubbing, no edema, no cyanosis, 2+ pulses and upper and lower extremities. MUSCULOSKELETAL: Muscle strength and tone normal. SPINE: No scoliosis or deformity SKIN: No rashes CENTRAL NERVOUS SYSTEM: Alert and oriented -3. No focal deficits, tone is normal in all 4 extremities. PSYCHIATRIC: Alert and oriented -3. Appropriate affect. Intact judgment and insight. - Labs CBC & Chem 7: 11/21/18 06:13 11/21/18 06:13 Labs: Abnormal Lab Results - Last 24 Hours (Table) 11/20/18 11/20/18 11/21/18 Range/Units 17:52 19:51 06:13 WBC 21.2 H (3.8-10.6) k/uL BUN (9-20) mg/dL Glucose (74-99) mg/dL POC Glucose (mg/dL) 193 H 148 H (75-99) mg/dL 11/21/18 11/21/18 11/21/18 Range/Units 06:13 06:40 11:46 WBC (3.8-10.6) k/uL BUN 24 H (9-20) mg/dL Glucose 152 H (74-99) mg/dL POC Glucose (mg/dL) 141 H 112 H (75-99) mg/dL Microbiology - Last 24 Hours (Table) 11/20/18 03:56 Blood Culture Gram Stain - Preliminary Blood Blood Culture - Preliminary Streptococcus pneumoniae 11/20/18 03:56 Blood Culture - Final Blood Assessment and Plan Plan: Assessment: #1. Dyspnea, weakness, related to disability of underlying streptococcal pneumonia #2. Streptococcus pneumonia bacteremia #3. Severe progressive pulmonary fibrosis, patient was not able to tolerate Ofev. Chronic hypoxemic respiratory failure #4. History of rheumatoid arthritis, patient follows at the [facility], sees right toxin infusions #5. History of GERD/reflux #'s. Hypertension, hyperlipidemia #7. Gout #8. Coronary artery disease with previous bypass grafting #9. History of abdominal aortic aneurysm Plan: We'll stop the Zithromax, switch the antibiotic coverage to Rocephin, 2 g daily , continue with IV vancomycin, repeat blood cultures have been drawn, continue with current IV steroids, nebulized bronchodilators. Clinical patient states he is feeling better today, he was able to ambulate. Continue to follow I performed a history & physical examination of the patient and discussed their management with my nurse practitioner, Selena Castro. I reviewed the nurse practitioner's note and agree with the documented findings and plan of care. Lung sounds are positive for diffuse dry Velcro-like crackles at the bases. The findings and the impression was discussed with the patient. I attest to the documentation by the nurse practitioner. Time with Patient: Less than 30
[2018-11-21 17:05] LABS: Glucose,Whole Blood 197 mg/dL (75-99)
[2018-11-21] MEDS: ATORVASTATIN 10 MG TAB PO SCH (17:59)
--- NOTE | 2018-11-21 18:20 | P.PN ---
Subjective Progress Note Date: 11/21/18 Interval history: 83-year-old pleasant gentleman with known history of pulmonary fibrosis probably from systemic rheumatoid is also at nighttime with compensative shortness of breath. Never smoked doesn't have any history of COPD patient was started on high-dose of steroids patient will also started on's vancomycin may not be helpful. Patient is complaining of cough with whitish sputum production. Patient denied any fever chills patient does not have any pneumonia on the chest x-ray does have pulmonary fibrosis and the fine crackles on exam which is consistent with pulmonary fibrosis. She follows up in your was to [place] for systemic rheumatoid. 11/21/2018 ambulating in [facility], O2 sat on room air post ambulation 87%. Currently maintaining O2 sats in the high 90s on 3 L nasal cannula, weaned down further to 2 L maintaining O2 sats of 97%. Productive cough with yellow sputum. Maintained on nebulized bronchodilators, systemic steroids. Blood sugars controlled. Afebrile. Blood cultures reporting Streptococcus pneumoniae , repeat blood cultures pending. Antibiotics changed to Rocephin and vancomycin. Review of Systems REVIEW OF SYSTEMS: CONSTITUTIONAL: No fever, no malaise, no fatigue. HEENT: No recent visual problems or hearing problems. Denied any sore throat. CARDIOVASCULAR: No chest pain, orthopnea, PND, no palpitations, no syncope. PULMONARY:no hemoptysis. Productive cough. GASTROINTESTINAL: No diarrhea, no nausea, no vomiting, no abdominal pain. NEUROLOGICAL: No headaches, no weakness, no numbness. HEMATOLOGICAL: Denies any bleeding or petechiae. GENITOURINARY: Denies any burning micturition, frequency, or urgency. ENDOCRINE: Denies any polyuria or polydipsia. The rest of the 14-point review of systems is negative. Active Medications Allopurinol (Zyloprim) 300 mg PO DAILY [facility] Last Admin: 11/21/18 08:25 Dose: 300 mg Aspirin (Aspirin) 81 mg PO DAILY [facility] Last Admin: 11/21/18 08:25 Dose: 81 mg Atorvastatin Calcium (Lipitor) 10 mg PO PC-SUPPER [facility] Last Admin: 11/21/18 17:59 Dose: 10 mg Benzonatate (Tessalon Perles) 200 mg PO TID [facility] Last Admin: 11/21/18 16:48 Dose: 200 mg Enoxaparin Sodium (Lovenox) 40 mg SQ DAILY [facility] Last Admin: 11/21/18 08:22 Dose: 40 mg Guaifenesin/Codeine Phosphate (Robitussin Ac) 10 ml PO HS PRN PRN Reason: Cough Ceftriaxone Sodium 2,000 mg/ (Sodium Chloride) 100 mls @ 100 mls/hr IVPB Q24HR [facility] Last Admin: 11/21/18 14:26 Dose: 100 mls/hr Insulin Aspart (Novolog) 0 unit SQ ACHS [facility]; Protocol Last Admin: 11/21/18 17:59 Dose: 5 unit Methylprednisolone Sodium Succinate (Solu-Medrol) 60 mg IV Q6HR [facility] Last Admin: 11/21/18 16:48 Dose: 60 mg Metoprolol Tartrate (Lopressor) 12.5 mg PO BID [facility] Last Admin: 11/21/18 08:22 Dose: 12.5 mg Multivitamins/Minerals (Ivite) 1 each PO DAILY [facility] Last Admin: 11/21/18 08:23 Dose: 1 each Ondansetron HCl (Zofran Odt) 4 mg PO Q8HR PRN PRN Reason: Nausea Pantoprazole Sodium (Protonix) 40 mg PO AC-BRKFST [facility] Last Admin: 11/21/18 08:23 Dose: 40 mg Sodium Chloride (Deep Sea) 2 spray NASAL QID PRN PRN Reason: Congestion Objective - Vital Signs Vital signs: Vital Signs Temp 97.5 F L 11/21/18 14:39 Pulse 86 11/21/18 14:39 Resp 16 11/21/18 14:39 BP 138/74 11/21/18 14:39 Pulse Ox 97 11/21/18 14:39 Intake & Output 11/20/18 11/21/18 11/21/18 18:59 06:59 18:59 Intake Total 780 1000 Balance 780 1000 Intake: Intake, IV Titration 500 Amount Vancomycin 1,250 mg In 250 Sodium Chloride 0.9% 250 ml @ 125 mls/hr IVPB Q12H [facility] Rx#:[id number] Vancomycin 1,500 mg In 250 Sodium Chloride 0.9% 250 ml @ 125 mls/hr IVPB ONCE ONE Rx#:[id number] Oral 780 500 Other: # Voids 3 2 - Exam GENERAL: The patient is sitting up in bed, alert and oriented x3, no acute distress. HEENT: Pupils are round and equally reacting to light. EOMI. No scleral icterus. No conjunctival pallor. Normocephalic, atraumatic. CARDIOVASCULAR: S1 and S2 present. No murmurs, rubs, or gallops. PULMONARY: Equal air entry with bilateral Velcro basilar crackles ABDOMEN: Soft, nontender, nondistended, normoactive bowel sounds. No palpable organomegaly. MUSCULOSKELETAL: No joint swelling or deformity. EXTREMITIES: No cyanosis, clubbing, or pedal edema. NEUROLOGICAL: Gross neurological examination did not reveal any focal deficits. SKIN: No rashes. - Labs CBC & Chem 7: 11/21/18 06:13 11/21/18 06:13 Labs: Abnormal Lab Results - Last 24 Hours (Table) 11/20/18 11/20/18 11/21/18 Range/Units 17:52 19:51 06:13 WBC 21.2 H (3.8-10.6) k/uL BUN (9-20) mg/dL Glucose (74-99) mg/dL POC Glucose (mg/dL) 193 H 148 H (75-99) mg/dL 11/21/18 11/21/18 11/21/18 Range/Units 06:13 06:40 11:46 WBC (3.8-10.6) k/uL BUN 24 H (9-20) mg/dL Glucose 152 H (74-99) mg/dL POC Glucose (mg/dL) 141 H 112 H (75-99) mg/dL 11/21/18 Range/Units 16:31 WBC (3.8-10.6) k/uL BUN (9-20) mg/dL Glucose (74-99) mg/dL POC Glucose (mg/dL) 197 H (75-99) mg/dL Microbiology - Last 24 Hours (Table) 11/20/18 03:56 Blood Culture Gram Stain - Preliminary Blood Blood Culture - Preliminary Streptococcus pneumoniae 11/20/18 03:56 Blood Culture - Final Blood Assessment and Plan Assessment: Acute hypoxic respiratory failure: Secondary to pulmonary fibrosis, possible streptococcal pneumonia. -Chronic hypoxic respiratory failure, wears 2 L at home at night. -Streptococcus pneumoniae bacteremia, repeat cultures pending. -leukocytosis due to systemic steroids no evidence of pneumonia -systemic rheumatoid disease, follows with [facility],[place] -hypertension next and hyperlipidemia -Coronary artery disease , history of CABG Plan: Continue on current medication regime ,monitoring and symptomatic treatment. Antibiotics adjusted as mentioned above . Maintain nebulized bronchodilators, IV steroids. Repeat blood cultures ordered. Increase ambulation as tolerated. The impression and plan of care has been dictated as directed. : I performed a history and examination of this patient, discussed the same with the dictator. I agree with the dictator's note ,documented as a scribe. Any additional findings or plans will be noted.
[2018-11-21 21:17] LABS: Glucose,Whole Blood 134 mg/dL (75-99)
[2018-11-21] MEDS ORDERED: ZOLPIDEM 5 MG TAB PO PRN (21:24)
[2018-11-21] MEDS: MELATONIN 5 MG TABLET PO PRN (21:37)
[2018-11-22] MEDS: methylPREDNISolone SOD SUCCI 125 MG/2 ML VIAL IV SCH ×4 (05:49→23:42)
[2018-11-22 07:46] LABS: Glucose,Whole Blood 161 mg/dL (75-99)
[2018-11-22] MEDS: INSULIN ASPART (NovoLOG) 100 UNIT/ML VIAL SQ SCH ×4 (08:07→20:19)
[2018-11-22 08:11] LABS: Basophils % (A) 0 %; Eosinophils % (A) 0 %; HCT 43.4 % (39.0-53.0); HGB 13.5 gm/dL (13.0-17.5); Lymphocytes # (A) 0.6 k/uL (1.0-4.8); Lymphocytes % (A) 3 %; MCH 30.9 pg (25.0-35.0); MCHC 31.1 g/dL (31.0-37.0); MCV 99.4 fL (80.0-100.0); Mean Platelet Volume 7.1; Monocytes # (A) 0.5 k/uL (0-1.0); Monocytes % (A) 3 %; Neutrophils # (A) 17.7 k/uL (1.3-7.7); Neutrophils % (A) 94 %; Platelet Count 246 k/uL (150-450); RBC 4.37 m/uL (4.30-5.90); RDW 14.2 % (11.5-15.5); WBC 18.9 k/uL (3.8-10.6)
[2018-11-22 08:25] LABS: Anion Gap 8 mmol/L; Blood Urea Nitrogen 32 mg/dL (9-20); Calcium 9.5 mg/dL (8.4-10.2); Carbon Dioxide 29 mmol/L (22-30); Chloride 102 mmol/L (98-107); Glucose 169 mg/dL (74-99); Potassium 4.4 mmol/L (3.5-5.1); Sodium 139 mmol/L (137-145)
[2018-11-22] MEDS: cefTRIAXone 2,000 MG in SODIUM CHLORIDE 0.9% 100 ML IVPB SCH (09:56)
[2018-11-22] MEDS: ENOXAPARIN 40 MG/0.4 ML SYRINGE SQ SCH (09:57)
[2018-11-22] MEDS: BENZONATATE 100 MG CAP PO SCH ×3 (09:58→20:51)
[2018-11-22] MEDS: ASPIRIN 81 MG PO SCH (09:58)
[2018-11-22] MEDS: METOPROLOL TARTRATE 12.5 MG TAB PO SCH ×2 (09:58→20:19)
[2018-11-22] MEDS: PANTOPRAZOLE 40 MG TABLET PO SCH (09:58)
[2018-11-22] MEDS: ALLOPURINOL 300 MG TAB PO SCH (09:58)
[2018-11-22] MEDS: VIT A,C & E-LUTEIN-MINERALS 1 EACH TAB PO SCH (09:58)
[2018-11-22 11:43] LABS: Glucose,Whole Blood 227 mg/dL (75-99)
[2018-11-22 14:59] LABS: Glucose,Whole Blood 199 mg/dL (75-99)
[2018-11-22] MEDS: ATORVASTATIN 10 MG TAB PO SCH (16:50)
[2018-11-22] MEDS ORDERED: VANCOMYCIN IV PER PHARMACY 1 EACH MISC MISCELLANE PRN (17:05)
[2018-11-22 17:30] LABS: Glucose,Whole Blood 168 mg/dL (75-99)
[2018-11-22] MEDS: VANCOMYCIN 1,250 MG in SODIUM CHLORIDE 0.9% 250 ML IVPB SCH (18:18)
[2018-11-22 20:11] LABS: Glucose,Whole Blood 129 mg/dL (75-99)
[2018-11-22] MEDS: MELATONIN 5 MG TABLET PO PRN (20:51)
--- NOTE | 2018-11-23 05:16 | CONS ---
CONSULTATION DATE OF SERVICE: 11/22/2018 REASON FOR CONSULTATION: Bacteremia. HISTORY OF PRESENT ILLNESS: The patient is an 83-year-old male presenting to the ER at [facility] with chief complaints of increasing shortness of breath. The patient's symptoms have been going on for about a week with increasing shortness of breath initially on exertion now even at rest. The patient also has associated cough which is moderate in intensity and to bring up occasional yellow sputum. No hemoptysis though. No chest pain. No nausea, no vomiting. No choking on food. No abdominal pain or any diarrhea. With progressive worsening of the symptoms, the patient presented to the hospital. The patient was evaluated by the ER physician. On arrival to the ER, the patient did have a chest x-ray which showed some chronic changes, but no evidence of any acute infiltrate. The patient did not have any fever. However, the patient's white count was elevated at 21.2. Repeat this morning is 18.9. The patient's creatinine 0.81. Electrolytes were normal. The patient did have blood cultures obtained which is now showing a Streptococcus pneumoniae that prompted this infectious disease consultation. REVIEW OF SYSTEMS: CONSTITUTIONAL: Positive for weakness, occasional chills. EYES: No complaint. ENT: No complaint. RESPIRATORY: As per HPI. CARDIOVASCULAR: No complaint. GENITOURINARY: No complaint. GASTROINTESTINAL: No complaint. MUSCULOSKELETAL: No complaint. INTEGUMENTARY: No complaint. PSYCHOLOGICAL: No complaint. ENDOCRINE: No complaint. NEUROLOGIC: No complaint. PAST MEDICAL HISTORY: Hypertension, hyperlipidemia, rheumatoid arthritis, gastroesophageal reflux disease, pulmonary fibrosis. PAST SURGICAL HISTORY: Coronary artery bypass grafting, skin cancer removal, left shoulder surgery and bilateral cataract surgery. SOCIAL HISTORY: The patient started smoking at the age of 14, quit in 1963. No drinking or drug use. FAMILY HISTORY: Mother with history of pulmonary fibrosis. Father history of ME. ALLERGIES: No known drug allergies. MEDICATIONS: Medications include the patient is currently on Zyloprim, aspirin, Lipitor, Rocephin 2 grams daily, Lovenox, Robitussin AC, NovoLog, Solu-Medrol, Lopressor, I-darcy, Zofran, Protonix. PHYSICAL EXAMINATION: On examination, blood pressure is 167/81 with a pulse of 79, temperature 97.6. He is 97% on room air. General description is an elderly male lying in bed in no distress. No tachypnea or accessory muscle of respiration use. HEENT examination shows no pallor or scleral icterus. Oral mucous membranes dry. No pharyngeal erythema or thrush. NECK: Trachea central. No thyromegaly. LUNGS: Unlabored breathing, decreased breath sounds. No wheeze or crackle. HEART: S1, S2. Regular rate and rhythm. No added sounds. ABDOMEN: Soft, no tenderness. No guarding or rigidity. EXTREMITIES: No edema of feet. SKIN EXAMINATION: No rash or mass palpable. NEUROLOGICALLY: Patient is awake, alert, oriented X3. Mood and affect normal. LABS: Hemoglobin 13.5, white count 18.9, BUN of 32, creatinine 0.81. Electrolytes have been normal. Blood culture with Strep pneumoniae with sensitivities pending. DIAGNOSTIC IMPRESSION AND PLAN: Patient with Streptococcus pneumoniae bacteremia source is likely pulmonary in this patient with likely early clinical pneumonia in a patient who does have underlying pulmonary fibrosis with low pulmonary reserve and high risk of complication associated with pneumonia. PLAN: 1. Rocephin 2 grams IV . 2. Will add vancomycin pharmacy to dose target of 15 while watching his kidney function and until the sensitivities on the Strep pneumo finalize. 3. Repeat the blood cultures to document clearance of bacteremia. 4. We will follow on clinical condition and culture to further adjust medication if needed. Thank you for this consultation. Will follow this patient along with you. MMODL / IJN: [id number] /
[2018-11-23] MEDS: VANCOMYCIN 1,250 MG in SODIUM CHLORIDE 0.9% 250 ML IVPB SCH ×2 (05:45→17:43)
[2018-11-23] MEDS: methylPREDNISolone SOD SUCCI 125 MG/2 ML VIAL IV SCH ×2 (05:46→12:27)
[2018-11-23 07:12] LABS: Basophils % (A) 0 %; Eosinophils % (A) 0 %; HCT 40.1 % (39.0-53.0); HGB 12.9 gm/dL (13.0-17.5); Lymphocytes # (A) 0.7 k/uL (1.0-4.8); Lymphocytes % (A) 5 %; MCH 31.8 pg (25.0-35.0); MCHC 32.1 g/dL (31.0-37.0); MCV 98.9 fL (80.0-100.0); Mean Platelet Volume 6.8; Monocytes # (A) 0.4 k/uL (0-1.0); Monocytes % (A) 3 %; Neutrophils % (A) 91 %; Platelet Count 226 k/uL (150-450); RBC 4.06 m/uL (4.30-5.90); WBC 13.1 k/uL (3.8-10.6)
[2018-11-23 07:24] LABS: Anion Gap 5 mmol/L; Blood Urea Nitrogen 30 mg/dL (9-20); Calcium 9.1 mg/dL (8.4-10.2); Carbon Dioxide 32 mmol/L (22-30); Chloride 103 mmol/L (98-107); Glucose 154 mg/dL (74-99); Potassium 4.8 mmol/L (3.5-5.1); Sodium 140 mmol/L (137-145)
[2018-11-23 07:49] LABS: Glucose,Whole Blood 151 mg/dL (75-99)
[2018-11-23] MEDS: cefTRIAXone 2,000 MG in SODIUM CHLORIDE 0.9% 100 ML IVPB SCH (09:46)
[2018-11-23] MEDS: INSULIN ASPART (NovoLOG) 100 UNIT/ML VIAL SQ SCH ×4 (09:46→20:25)
[2018-11-23] MEDS: BENZONATATE 100 MG CAP PO SCH ×3 (09:48→20:25)
[2018-11-23] MEDS: VIT A,C & E-LUTEIN-MINERALS 1 EACH TAB PO SCH (09:48)
[2018-11-23] MEDS: METOPROLOL TARTRATE 12.5 MG TAB PO SCH ×2 (09:48→20:25)
[2018-11-23] MEDS: ENOXAPARIN 40 MG/0.4 ML SYRINGE SQ SCH (09:48)
[2018-11-23] MEDS: PANTOPRAZOLE 40 MG TABLET PO SCH (09:48)
[2018-11-23] MEDS: ASPIRIN 81 MG PO SCH (09:48)
[2018-11-23] MEDS: ALLOPURINOL 300 MG TAB PO SCH (09:49)
--- NOTE | 2018-11-23 11:02 | P.PN ---
Subjective Progress Note Date: 11/22/18 Interval history: 83-year-old pleasant gentleman with known history of pulmonary fibrosis probably from systemic rheumatoid is also at nighttime with compensative shortness of breath. Never smoked doesn't have any history of COPD patient was started on high-dose of steroids patient will also started on's vancomycin may not be helpful. Patient is complaining of cough with whitish sputum production. Patient denied any fever chills patient does not have any pneumonia on the chest x-ray does have pulmonary fibrosis and the fine crackles on exam which is consistent with pulmonary fibrosis. She follows up in your was to [place] for systemic rheumatoid. 11/21/[facility], O2 sat on room air post ambulation 87%. Currently maintaining O2 sats in the high 90s on 3 L nasal cannula, weaned down further to 2 L maintaining O2 sats of 97%. Productive cough with yellow sputum. Maintained on nebulized bronchodilators, systemic steroids. Blood sugars controlled. Afebrile. Blood cultures reporting Streptococcus pneumoniae , repeat blood cultures pending. Antibiotics changed to Rocephin and vancomycin. 11/22/2018 continues on Rocephin, vancomycin .maintaining O2 sats in the high 90s on 2 L nasal cannula. Reports productive cough with yellow sputum. Afebrile, leukocytosis improving, down to 18.9. Initial blood cultures reporting Streptococcus pneumoniae, sensitivities pending with repeat blood cultures in progress. Patient standing in the doorway, eager, requesting discharge today. Infectious disease consult in place with recommendations pending. Review of Systems REVIEW OF SYSTEMS: CONSTITUTIONAL: No fever, no malaise, no fatigue. HEENT: No recent visual problems or hearing problems. Denied any sore throat. CARDIOVASCULAR: No chest pain, orthopnea, PND, no palpitations, no syncope. PULMONARY:no hemoptysis. Productive cough. GASTROINTESTINAL: No diarrhea, no nausea, no vomiting, no abdominal pain. NEUROLOGICAL: No headaches, no weakness, no numbness. HEMATOLOGICAL: Denies any bleeding or petechiae. GENITOURINARY: Denies any burning micturition, frequency, or urgency. ENDOCRINE: Denies any polyuria or polydipsia. The rest of the 14-point review of systems is negative. Active Medications Allopurinol (Zyloprim) 300 mg PO DAILY [facility] Last Admin: 11/21/18 08:25 Dose: 300 mg Aspirin (Aspirin) 81 mg PO DAILY [facility] Last Admin: 11/21/18 08:25 Dose: 81 mg Atorvastatin Calcium (Lipitor) 10 mg PO PC-SUPPER [facility] Last Admin: 11/21/18 17:59 Dose: 10 mg Benzonatate (Tessalon Perles) 200 mg PO TID [facility] Last Admin: 11/21/18 16:48 Dose: 200 mg Enoxaparin Sodium (Lovenox) 40 mg SQ DAILY [facility] Last Admin: 11/21/18 08:22 Dose: 40 mg Guaifenesin/Codeine Phosphate (Robitussin Ac) 10 ml PO HS PRN PRN Reason: Cough Ceftriaxone Sodium 2,000 mg/ (Sodium Chloride) 100 mls @ 100 mls/hr IVPB Q24HR [facility] Last Admin: 11/21/18 14:26 Dose: 100 mls/hr Insulin Aspart (Novolog) 0 unit SQ ACHS [facility]; Protocol Last Admin: 11/21/18 17:59 Dose: 5 unit Methylprednisolone Sodium Succinate (Solu-Medrol) 60 mg IV Q6HR [facility] Last Admin: 11/21/18 16:48 Dose: 60 mg Metoprolol Tartrate (Lopressor) 12.5 mg PO BID [facility] Last Admin: 11/21/18 08:22 Dose: 12.5 mg Multivitamins/Minerals (Ivite) 1 each PO DAILY [facility] Last Admin: 11/21/18 08:23 Dose: 1 each Ondansetron HCl (Zofran Odt) 4 mg PO Q8HR PRN PRN Reason: Nausea Pantoprazole Sodium (Protonix) 40 mg PO AC-BRKFST [facility] Last Admin: 11/21/18 08:23 Dose: 40 mg Sodium Chloride (Deep Sea) 2 spray NASAL QID PRN PRN Reason: Congestion Objective - Vital Signs Vital signs: Vital Signs Temp 97.6 F 11/22/18 15:00 Pulse 80 11/22/18 15:00 Resp 16 11/22/18 15:00 BP 157/66 11/22/18 15:00 Pulse Ox 95 11/22/18 15:23 Intake & Output 11/21/18 11/22/18 11/22/18 18:59 06:59 18:59 Intake Total 240 1057 Output Total 1 Balance 240 1056 Intake: Intake, IV Titration 100 Amount cefTRIAXone 2,000 mg In 100 Sodium Chloride 0.9% 100 ml @ 100 mls/hr IVPB Q24HR [facility] Rx#:[id number] Oral 240 957 Output: Urine 1 Other: Voiding Method Toilet # Voids 2 2 - Exam GENERAL: The patient is sitting up in chair, alert and oriented x3, no acute distress. HEENT: Pupils are round and equally reacting to light. EOMI. No scleral icterus. No conjunctival pallor. Normocephalic, atraumatic. Oral mucosa dry. CARDIOVASCULAR: S1 and S2 present. No murmurs, rubs, or gallops. PULMONARY: Unlabored, Equal air entry with fine bilateral Velcro basilar crackles ABDOMEN: Soft, nontender, nondistended, normoactive bowel sounds. No palpable organomegaly. MUSCULOSKELETAL: No joint swelling or deformity. EXTREMITIES: No cyanosis, clubbing, or pedal edema. NEUROLOGICAL: Gross neurological examination did not reveal any focal deficits. SKIN: No rashes. - Labs CBC & Chem 7: 11/23/18 06:30 11/23/18 06:30 Labs: Abnormal Lab Results - Last 24 Hours (Table) 11/21/18 11/21/18 11/22/18 Range/Units 16:31 21:06 07:14 WBC 18.9 H (3.8-10.6) k/uL Neutrophils # 17.7 H (1.3-7.7) k/uL Lymphocytes # 0.6 L (1.0-4.8) k/uL BUN (9-20) mg/dL Glucose (74-99) mg/dL POC Glucose (mg/dL) 197 H 134 H (75-99) mg/dL 11/22/18 11/22/18 11/22/18 Range/Units 07:14 07:34 11:31 WBC (3.8-10.6) k/uL Neutrophils # (1.3-7.7) k/uL Lymphocytes # (1.0-4.8) k/uL BUN 32 H (9-20) mg/dL Glucose 169 H (74-99) mg/dL POC Glucose (mg/dL) 161 H 227 H (75-99) mg/dL 11/22/18 Range/Units 14:47 WBC (3.8-10.6) k/uL Neutrophils # (1.3-7.7) k/uL Lymphocytes # (1.0-4.8) k/uL BUN (9-20) mg/dL Glucose (74-99) mg/dL POC Glucose (mg/dL) 199 H (75-99) mg/dL Assessment and Plan Assessment: Acute hypoxic respiratory failure: Secondary to most likely streptococcal pneumonia,pulmonary fibrosis. -Chronic hypoxic respiratory failure, wears 2 L at home at night. -Streptococcus pneumoniae bacteremia, sensitivities & repeat cultures pending. -leukocytosis due to systemic steroids no evidence of pneumonia -systemic rheumatoid disease, follows with [facility],[place] -hypertension next and hyperlipidemia -Coronary artery disease , history of CABG Plan: Continue on current medication regime ,monitoring and symptomatic treatment. Follow blood cultures closely. Possible discharge tomorrow pending sensitivities on initial blood culture as well as clearance of repeat blood cultures. ID evaluation/ recommendations pending. Continue on Antibiotics as mentioned above . Maintain nebulized bronchodilators, IV steroids. The impression and plan of care has been dictated as directed. : I performed a history and examination of this patient, discussed the same with the dictator. I agree with the dictator's note ,documented as a scribe. Any additional findings or plans will be noted.
--- NOTE | 2018-11-23 11:49 | XR ---
EXAMINATION TYPE: XR chest 2V DATE OF EXAM: 11/23/2018 COMPARISON: Prior chest x-ray 11/20/2018 HISTORY: Pneumonia TECHNIQUE: Frontal and lateral views of the chest are obtained. FINDINGS: Patient is post median sternotomy. Interstitial changes are again noted within the lungs. Pleural thickening is present along the right apex and lateral chest margin. No pneumothorax or evide nt effusion. Heart size is stable. Suspect some improvement in aeration right upper lobe. IMPRESSION: Interstitial lung disease, there may be some improvement in aeration.
[2018-11-23 12:13] LABS: Glucose,Whole Blood 225 mg/dL (75-99)
[2018-11-23] MEDS ORDERED: CEFEPIME 2 GM in SODIUM CHLORIDE 0.9% 50 ML IVPB SCH (13:00)
--- NOTE | 2018-11-23 16:05 | P.PN ---
Subjective Progress Note Date: 11/23/18 Principal diagnosis: Weakness, shortness of breath This 83-year-old white male patient of Dr. Adolfo Burton, with past medical history of biopsy-proven pulmonary fibrosis, GERD, hypertension, hyperlipidemia , and rheumatoid arthritis who was admitted to the hospital on 11/20/2018 after presenting with symptoms of weakness, and weakness of shortness of breath. Patient was having trouble ambulating, was complaining of coughing jags, phlegm production. Denied any fever or chills. Chest x-ray showed advanced pulmonary fibrosis, but no definite acute lung disease. Labs showed white blood cell count of 21.2, hemoglobin 14.6, INR 1.1, sodium was 136, the rest of electrolytes were within normal limits, B1 is 26 and creatinine 0.87, troponin was negative, proBNP was 522. Patient was placed on empiric antibiotics, in the form of Zithromax, nebulized bronchodilators, cough syrup, and the steroids. Blood culture showed Streptococcus pneumoniae, today we switched his antibiotic coverage from Zithromax to Rocephin 2 g daily, and IV vancomycin was started. On 11/23/2018 patient seen in follow-up, on medical surgical floor. He is awake and alert, in no acute distress, he states he is breathing better, he has been able to ambulate, he is currently on 3 L per nasal cannula his pulse ox is 98%, afebrile, hemodynamically patient is stable, lung sounds are positive for dry inspiratory crackles at the bases, occasional cough. Blood which was positive for Streptococcus pneumoniae, and sensitivity screen showed resistance to multiple antibiotics. Sputum culture is pending, current antibiotic coverage includes cefepime and vancomycin, ID service is following. Objective - Vital Signs Vital signs: Vital Signs Temp 97.7 F 11/23/18 07:49 Pulse 71 11/23/18 07:49 Resp 16 11/23/18 07:49 BP 155/78 11/23/18 07:49 Pulse Ox 98 11/23/18 09:09 Intake & Output 11/22/18 11/23/18 11/23/18 18:59 06:59 18:59 Intake Total 1297 730 100 Output Total 1 Balance 1296 730 100 Intake: Intake, IV Titration 100 250 100 Amount Cefepime 2 gm In Sodium 100 Chloride 0.9% 50 ml @ 100 mls/hr IVPB Q12H [facility] Rx# :[id number] Vancomycin 1,250 mg In 250 Sodium Chloride 0.9% 250 ml @ 125 mls/hr IVPB Q12H [facility] Rx#:[id number] cefTRIAXone 2,000 mg In 100 Sodium Chloride 0.9% 100 ml @ 100 mls/hr IVPB Q24HR [facility] Rx#:[id number] Oral [id number] 480 Output: Urine 1 Other: Voiding Method Toilet # Voids 2 - Exam GENERAL EXAM: Alert, pleasant, 83-year-old white male on, comfortable in no apparent distress. HEAD: Normocephalic/atraumatic. EYES: Normal reaction of pupils, equal size. Conjunctiva pink, sclera white. NOSE: Clear with pink turbinates. THROAT: No erythema or exudates. NECK: No masses, no JVD, no thyroid enlargement, no adenopathy. CHEST: No chest wall deformity. Symmetrical expansion. LUNGS: Equal air entry with coarse Velcro-like inspiratory crackles at bilateral bases CVS: Regular rate and rhythm, normal S1 and S2, no gallops, no murmurs, no rubs ABDOMEN: Soft, nontender. No hepatosplenomegaly, normal bowel sounds, no guarding or rigidity. EXTREMITIES: No clubbing, no edema, no cyanosis, 2+ pulses and upper and lower extremities. MUSCULOSKELETAL: Muscle strength and tone normal. SPINE: No scoliosis or deformity SKIN: No rashes CENTRAL NERVOUS SYSTEM: Alert and oriented -3. No focal deficits, tone is normal in all 4 extremities. PSYCHIATRIC: Alert and oriented -3. Appropriate affect. Intact judgment and insight. - Labs CBC & Chem 7: 11/23/18 06:30 11/23/18 06:30 Labs: Abnormal Lab Results - Last 24 Hours (Table) 11/22/18 11/22/18 11/23/18 Range/Units 17:18 19:57 06:30 WBC 13.1 H (3.8-10.6) k/uL RBC 4.06 L (4.30-5.90) m/uL Hgb 12.9 L (13.0-17.5) gm/dL Neutrophils # 12.0 H (1.3-7.7) k/uL Lymphocytes # 0.7 L (1.0-4.8) k/uL Carbon Dioxide (22-30) mmol/L BUN (9-20) mg/dL Glucose (74-99) mg/dL POC Glucose (mg/dL) 168 H 129 H (75-99) mg/dL 11/23/18 11/23/18 11/23/18 Range/Units 06:30 07:36 12:00 WBC (3.8-10.6) k/uL RBC (4.30-5.90) m/uL Hgb (13.0-17.5) gm/dL Neutrophils # (1.3-7.7) k/uL Lymphocytes # (1.0-4.8) k/uL Carbon Dioxide 32 H (22-30) mmol/L BUN 30 H (9-20) mg/dL Glucose 154 H (74-99) mg/dL POC Glucose (mg/dL) 151 H 225 H (75-99) mg/dL Microbiology - Last 24 Hours (Table) 11/23/18 00:00 Gram Stain - Preliminary Sputum 11/20/18 03:56 Blood Culture Gram Stain - Final Blood Blood Culture - Final Streptococcus pneumoniae 11/21/18 20:17 Blood Culture - Preliminary Blood No Growth after 24 hours Assessment and Plan Plan: Assessment: #1. Dyspnea, weakness, related to possibility of underlying streptococcal pneumonia #2. Streptococcus pneumonia bacteremia #3. Severe progressive pulmonary fibrosis, patient was not able to tolerate Ofev. Chronic hypoxemic respiratory failure #4. History of rheumatoid arthritis, patient follows at the [facility], sees right toxin infusions #5. History of GERD/reflux #'s. Hypertension, hyperlipidemia #7. Gout #8. Coronary artery disease with previous bypass grafting #9. History of abdominal aortic aneurysm Plan: We'll continue antibiotic coverage per ID service recommendations, clinically patient is improving, breathing better, he is tolerating ambulation, he really would like to go home, however his sensitivity screen showed resistance to many antibiotics, we will at the infectious disease service to make a decision about the antibiotic coverage for the patient to go home on. Once he is cleared for discharge by ID service patient could be considered for discharge from pulmonary perspective as well. We'll switch the IV Solu-Medrol to oral prednisone. Follow-up blood cultures have been done, and are pending at this time. I performed a history & physical examination of the patient and discussed their management with my nurse practitioner, Selena Castro. I reviewed the nurse practitioner's note and agree with the documented findings and plan of care. Lung sounds are positive for diffuse dry Velcro-like crackles at the bases. The findings and the impression was discussed with the patient. I attest to the documentation by the nurse practitioner. Time with Patient: Less than 30
[2018-11-23 17:40] LABS: Glucose,Whole Blood 123 mg/dL (75-99)
[2018-11-23] MEDS: predniSONE 20 MG TAB PO SCH (17:43)
[2018-11-23] MEDS: ATORVASTATIN 10 MG TAB PO SCH (17:46)
[2018-11-23 20:23] LABS: Glucose,Whole Blood 231 mg/dL (75-99)
[2018-11-23] MEDS: MELATONIN 5 MG TABLET PO PRN (22:06)
--- NOTE | 2018-11-23 23:37 | PN ---
PROGRESS NOTE DATE OF SERVICE: 11/23/2018. REASON FOR FOLLOW UP: Strep pneumo bacteremia. INTERVAL HISTORY: The patient is currently afebrile. He is breathing more comfortably. The patient denies having any chest pain. Minimal cough. No abdominal pain. No diarrhea. PHYSICAL EXAMINATION: Blood pressure is 164/80 with a pulse of 53, temperature 97.5, he is on 2 L nasal cannula. GENERAL DESCRIPTION: An elderly male up in the bed in no distress. RESPIRATORY SYSTEM: Unlabored breathing with decreased breath sounds in the base. Heart S1, S2. Regular rate and rhythm. ABDOMEN: Soft. LABS: Hemoglobin is 12.1, hematocrit , BUN of 30, creatinine 0.79. Strep pneumo has been finalized with multi-drug resistant pattern. DIAGNOSTIC IMPRESSION AND PLAN: Patient with a strep pneumo bacteremia secondary to pneumonia. Strep pneumo has multi- drug resistant pattern. The patient will need a PICC line for outpatient IV vancomycin for at least 2 weeks. Prescription has been provided, nursing staff to arrange for IV antibiotics with possible discharge tomorrow. The patient has been insisting on going home. Continue supportive care. MMODL / IJN: [id number] /
[2018-11-24 05:45] LABS: Basophils % (A) 0 %; Eosinophils % (A) 0 %; HCT 38.4 % (39.0-53.0); HGB 12.4 gm/dL (13.0-17.5); Lymphocytes # (A) 0.7 k/uL (1.0-4.8); Lymphocytes % (A) 7 %; MCH 31.6 pg (25.0-35.0); MCHC 32.2 g/dL (31.0-37.0); MCV 98.2 fL (80.0-100.0); Mean Platelet Volume 6.6; Monocytes # (A) 0.5 k/uL (0-1.0); Monocytes % (A) 4 %; Neutrophils # (A) 9.3 k/uL (1.3-7.7); Neutrophils % (A) 88 %; Platelet Count 218 k/uL (150-450); RBC 3.91 m/uL (4.30-5.90); WBC 10.6 k/uL (3.8-10.6)
[2018-11-24] MEDS: VANCOMYCIN 1,250 MG in SODIUM CHLORIDE 0.9% 250 ML IVPB SCH (05:45)
[2018-11-24] MEDS ORDERED: CEFEPIME 2 GM in SODIUM CHLORIDE 0.9% 50 ML IVPB SCH (06:00)
[2018-11-24 06:03] LABS: Blood Urea Nitrogen 30 mg/dL (9-20); Calcium 8.7 mg/dL (8.4-10.2); Carbon Dioxide 30 mmol/L (22-30); Glucose 134 mg/dL (74-99)
[2018-11-24 06:35] LABS: Anion Gap 4 mmol/L; Chloride 103 mmol/L (98-107); Potassium 4.6 mmol/L (3.5-5.1); Sodium 137 mmol/L (137-145)
[2018-11-24 07:27] LABS: Glucose,Whole Blood 136 mg/dL (75-99)
[2018-11-24] MEDS: ENOXAPARIN 40 MG/0.4 ML SYRINGE SQ SCH (09:05)
[2018-11-24] MEDS: INSULIN ASPART (NovoLOG) 100 UNIT/ML VIAL SQ SCH ×2 (09:06→13:14)
[2018-11-24] MEDS: ALLOPURINOL 300 MG TAB PO SCH (09:12)
[2018-11-24] MEDS: METOPROLOL TARTRATE 12.5 MG TAB PO SCH (09:12)
[2018-11-24] MEDS: predniSONE 20 MG TAB PO SCH (09:12)
[2018-11-24] MEDS: ASPIRIN 81 MG PO SCH (09:12)
[2018-11-24] MEDS: VIT A,C & E-LUTEIN-MINERALS 1 EACH TAB PO SCH (09:12)
[2018-11-24] MEDS: BENZONATATE 100 MG CAP PO SCH ×2 (09:12→16:46)
[2018-11-24] MEDS: PANTOPRAZOLE 40 MG TABLET PO SCH (09:12)
[2018-11-24 12:13] LABS: Glucose,Whole Blood 158 mg/dL (75-99)
[2018-11-24] MEDS ORDERED: DAPTOmycin 500 MG in SODIUM CHLORIDE 0.9% 50 ML IVPB STA (14:03)
--- NOTE | 2018-11-24 14:27 | PN ---
PROGRESS NOTE DATE OF SERVICE: 11/24/2018 REASON FOR FOLLOW UP: Strep pneumo bacteremia. INTERVAL HISTORY: The patient is currently afebrile. The patient is breathing more comfortably. The patient denies having any chest pain, shortness of breath. No cough. No abdominal pain. No nausea, vomiting or any diarrhea. The patient did get a PICC line and is anxious to go home. The patient is currently on vancomycin that is requiring a twice daily dose and the patient has no coverage at home IV infusion. REVIEW OF SYSTEMS: Positive points have been mentioned in HPI, the rest of the system has been negative. Medication reviewed. PHYSICAL EXAMINATION: Blood pressure 155/70 with a pulse of 65, temperature 97.6, he is 96% on 2 L nasal cannula. General description is an elderly male up in the bed, in no distress. No tachypnea or accessory muscle for respiration use. HEENT: Shows no pallor or scleral icterus. Oral mucosa is dry. No pharyngeal erythema, no thrush. NECK: Trachea central with no thyromegaly. LUNGS: Unlabored breathing, decreased intensive breath sound, no wheeze. HEART: S1, S2. Regular rate and rhythm. ABDOMEN: Soft, no tenderness. LABS: White count has normalized to 10.6, admission white count was 21.6. The patient sputum cultures currently pending. Blood culture repeat has been negative. DIAGNOSTIC IMPRESSION AND PLAN: Patient with strep pneumo bacteremia, source is likely lungs. However, there was no significant consolidation seen on the chest x-ray, but no other source. Unfortunately, the patient has no coverage for getting any vancomycin at home and it is too hard for him to go to infusion clinic twice a day for the IV vancomycin. There is efficacy of daptomycin in streptococcal pneumonia bacteremia and on that basis, we will switch over to daptomycin 500 mg which is about 6 mg/kg daily for another 2 weeks with close outpatient followup, baseline CRP and weekly monitoring of the same. All questions were answered. Time spent coordinating his discharge has been 30 minutes including talking to the case workers, managers for admit of the medication. Continue supportive care. MMODL / IJN: [id number] /
[2018-11-24 14:43] VITALS: BP 132/69; PULSE 80; RESP 16; TEMP 97.5
--- NOTE | 2018-11-24 14:46 | P.PN ---
Subjective Progress Note Date: 11/24/18 Principal diagnosis: Weakness, shortness of breath This 83-year-old white male patient of Dr. Adolfo Burton, with past medical history of biopsy-proven pulmonary fibrosis, GERD, hypertension, hyperlipidemia , and rheumatoid arthritis who was admitted to the hospital on 11/20/2018 after presenting with symptoms of weakness, and weakness of shortness of breath. Patient was having trouble ambulating, was complaining of coughing jags, phlegm production. Denied any fever or chills. Chest x-ray showed advanced pulmonary fibrosis, but no definite acute lung disease. Labs showed white blood cell count of 21.2, hemoglobin 14.6, INR 1.1, sodium was 136, the rest of electrolytes were within normal limits, B1 is 26 and creatinine 0.87, troponin was negative, proBNP was 522. Patient was placed on empiric antibiotics, in the form of Zithromax, nebulized bronchodilators, cough syrup, and the steroids. Blood culture showed Streptococcus pneumoniae, today we switched his antibiotic coverage from Zithromax to Rocephin 2 g daily, and IV vancomycin was started. On 11/23/2018 patient seen in follow-up, on medical surgical floor. He is awake and alert, in no acute distress, he states he is breathing better, he has been able to ambulate, he is currently on 3 L per nasal cannula his pulse ox is 98%, afebrile, hemodynamically patient is stable, lung sounds are positive for dry inspiratory crackles at the bases, occasional cough. Blood which was positive for Streptococcus pneumoniae, and sensitivity screen showed resistance to multiple antibiotics. Sputum culture is pending, current antibiotic coverage includes cefepime and vancomycin, ID service is following. On 11/24/2018 patient seen in follow-up on medical surgical floor. Patient is awake and alert, breathing easier, he continues to improve. Today's blood work has been noted, WBCs 10.6, hemoglobin is 12.4, electrolytes are within normal limits, B1 is 30, creatinine 0.68. No fever or chills. Patient is on vancomycin , ID service is following, line was inserted today, and his left upper arm, patient will be discharged home, and she will be getting vancomycin infusions through the outpatient infusion clinic. Sounds are positive for dry Velcro- like crackles, no wheezing, 2 L of oxygen per nasal cannula, his pulse ox is 96. Objective - Vital Signs Vital signs: Vital Signs Temp 97.6 F 11/24/18 07:36 Pulse 65 11/24/18 07:36 Resp 18 11/24/18 07:36 BP 155/76 11/24/18 07:36 Pulse Ox 96 11/24/18 07:36 Intake & Output 11/23/18 11/24/18 11/24/18 18:59 06:59 18:59 Intake Total 100 Balance 100 Intake: Intake, IV Titration 100 Amount Cefepime 2 gm In Sodium 100 Chloride 0.9% 50 ml @ 100 mls/hr IVPB Q12H [facility] Rx# :[id number] Other: Voiding Method Toilet Toilet Toilet # Voids 2 - Exam GENERAL EXAM: Alert, pleasant, 83-year-old white male on, comfortable in no apparent distress. HEAD: Normocephalic/atraumatic. EYES: Normal reaction of pupils, equal size. Conjunctiva pink, sclera white. NOSE: Clear with pink turbinates. THROAT: No erythema or exudates. NECK: No masses, no JVD, no thyroid enlargement, no adenopathy. CHEST: No chest wall deformity. Symmetrical expansion. LUNGS: Equal air entry with coarse Velcro-like inspiratory crackles at bilateral bases CVS: Regular rate and rhythm, normal S1 and S2, no gallops, no murmurs, no rubs ABDOMEN: Soft, nontender. No hepatosplenomegaly, normal bowel sounds, no guarding or rigidity. EXTREMITIES: No clubbing, no edema, no cyanosis, 2+ pulses and upper and lower extremities. MUSCULOSKELETAL: Muscle strength and tone normal. SPINE: No scoliosis or deformity SKIN: No rashes CENTRAL NERVOUS SYSTEM: Alert and oriented -3. No focal deficits, tone is normal in all 4 extremities. PSYCHIATRIC: Alert and oriented -3. Appropriate affect. Intact judgment and insight. - Labs CBC & Chem 7: 11/24/18 05:05 11/24/18 05:05 Labs: Abnormal Lab Results - Last 24 Hours (Table) 11/23/18 11/23/18 11/24/18 Range/Units 17:10 20:12 05:05 RBC 3.91 L (4.30-5.90) m/uL Hgb 12.4 L (13.0-17.5) gm/dL Hct 38.4 L (39.0-53.0) % Neutrophils # 9.3 H (1.3-7.7) k/uL Lymphocytes # 0.7 L (1.0-4.8) k/uL BUN (9-20) mg/dL Glucose (74-99) mg/dL POC Glucose (mg/dL) 123 H 231 H (75-99) mg/dL 11/24/18 11/24/18 11/24/18 Range/Units 05:05 07:06 11:41 RBC (4.30-5.90) m/uL Hgb (13.0-17.5) gm/dL Hct (39.0-53.0) % Neutrophils # (1.3-7.7) k/uL Lymphocytes # (1.0-4.8) k/uL BUN 30 H (9-20) mg/dL Glucose 134 H (74-99) mg/dL POC Glucose (mg/dL) 136 H 158 H (75-99) mg/dL Microbiology - Last 24 Hours (Table) 11/20/18 03:56 Blood Culture Gram Stain - Final Blood Blood Culture - Final Streptococcus pneumoniae 11/21/18 20:17 Blood Culture - Preliminary Blood No Growth after 48 hours 11/22/18 17:40 Blood Culture - Preliminary Blood No Growth after 24 hours 11/23/18 00:00 Gram Stain - Preliminary Sputum Assessment and Plan Plan: Assessment: #1. Dyspnea, weakness, related to possibility of underlying streptococcal pneumonia #2. Streptococcus pneumonia bacteremia #3. Severe progressive pulmonary fibrosis, patient was not able to tolerate Ofev. Chronic hypoxemic respiratory failure #4. History of rheumatoid arthritis, patient follows at the [facility], sees right toxin infusions #5. History of GERD/reflux #'s. Hypertension, hyperlipidemia #7. Gout #8. Coronary artery disease with previous bypass grafting #9. History of abdominal aortic aneurysm Plan: Patient is stable for discharge from pulmonary perspective, he had his PICC line inserted, and he will be going home with vancomycin infusions through the outpatient infusion clinic. Vital signs are stable, patient is tolerating ambulation, no fever or chills, no worsening dyspnea. We'll follow up with Dr. Gupta in the office in 7-10 days. I performed a history & physical examination of the patient and discussed their management with my nurse practitioner, Selena Castro. I reviewed the nurse practitioner's note and agree with the documented findings and plan of care. Lung sounds are positive for diffuse dry Velcro-like crackles at the bases. The findings and the impression was discussed with the patient. I attest to the documentation by the nurse practitioner. Time with Patient: Less than 30
[2018-11-24] MEDS ORDERED: VANCOMYCIN 1,500 MG in SODIUM CHLORIDE 0.9% 250 ML IVPB SCH (18:00)
--- NOTE | 2018-11-24 18:13 | P.PN ---
Subjective Progress Note Date: 11/23/18 Interval history: 83-year-old pleasant gentleman with known history of pulmonary fibrosis probably from systemic rheumatoid is also at nighttime with compensative shortness of breath. Never smoked doesn't have any history of COPD patient was started on high-dose of steroids patient will also started on's vancomycin may not be helpful. Patient is complaining of cough with whitish sputum production. Patient denied any fever chills patient does not have any pneumonia on the chest x-ray does have pulmonary fibrosis and the fine crackles on exam which is consistent with pulmonary fibrosis. She follows up in your was to [place] for systemic rheumatoid. 11/21/2018 ambulating in [facility], O2 sat on room air post ambulation 87%. Currently maintaining O2 sats in the high 90s on 3 L nasal cannula, weaned down further to 2 L maintaining O2 sats of 97%. Productive cough with yellow sputum. Maintained on nebulized bronchodilators, systemic steroids. Blood sugars controlled. Afebrile. Blood cultures reporting Streptococcus pneumoniae , repeat blood cultures pending. Antibiotics changed to Rocephin and vancomycin. 11/22/2018 continues on Rocephin, vancomycin .maintaining O2 sats in the high 90s on 2 L nasal cannula. Reports productive cough with yellow sputum. Afebrile, leukocytosis improving, down to 18.9. Initial blood cultures reporting Streptococcus pneumoniae, sensitivities pending with repeat blood cultures in progress. Patient standing in the doorway, eager, requesting discharge today. Infectious disease consult in place with recommendations pending. 11/23/2018 maintained on cefepime and vancomycin .breathing continues to improve , maintaining O2 sats in the high 90s on 3 L nasal cannula. Occasional nonproductive cough. Afebrile, improving leukocytosis, down to 13.1. Streptococcus pneumonia in blood cultures for sensitivity reporting resistance to multiple antibiotics. Sputum culture pending. Review of Systems REVIEW OF SYSTEMS: CONSTITUTIONAL: No fever, no malaise, no fatigue. HEENT: No recent visual problems or hearing problems. Denied any sore throat. CARDIOVASCULAR: No chest pain, orthopnea, PND, no palpitations, no syncope. PULMONARY:no hemoptysis. Productive cough. GASTROINTESTINAL: No diarrhea, no nausea, no vomiting, no abdominal pain. NEUROLOGICAL: No headaches, no weakness, no numbness. HEMATOLOGICAL: Denies any bleeding or petechiae. GENITOURINARY: Denies any burning micturition, frequency, or urgency. ENDOCRINE: Denies any polyuria or polydipsia. The rest of the 14-point review of systems is negative. Medications reviewed, adjusted accordingly. Objective - Vital Signs Vital signs: Vital Signs Temp 97.7 F 11/23/18 07:49 Pulse 71 11/23/18 07:49 Resp 16 11/23/18 07:49 BP 155/78 11/23/18 07:49 Pulse Ox 98 11/23/18 09:09 Intake & Output 11/22/18 11/23/18 11/23/18 18:59 06:59 18:59 Intake Total 1297 730 100 Output Total 1 Balance 1296 730 100 Intake: Intake, IV Titration 100 250 100 Amount Cefepime 2 gm In Sodium 100 Chloride 0.9% 50 ml @ 100 mls/hr IVPB Q12H [facility] Rx# :[id number] Vancomycin 1,250 mg In 250 Sodium Chloride 0.9% 250 ml @ 125 mls/hr IVPB Q12H [facility] Rx#:[id number] cefTRIAXone 2,000 mg In 100 Sodium Chloride 0.9% 100 ml @ 100 mls/hr IVPB Q24HR [facility] Rx#:[id number] Oral [id number] Output: Urine 1 Other: Voiding Method Toilet # Voids 2 - Exam GENERAL: The patient is sitting up in chair, alert and oriented x3, no acute distress. HEENT: Pupils are round and equally reacting to light. EOMI. No scleral icterus. No conjunctival pallor. Normocephalic, atraumatic. Oral mucosa moist CARDIOVASCULAR: S1 and S2 present. No murmurs, rubs, or gallops. PULMONARY: Unlabored, Equal air entry with fine bilateral basilar Velcro basilar crackles ABDOMEN: Soft, nontender, nondistended, normoactive bowel sounds. No palpable organomegaly. MUSCULOSKELETAL: No joint swelling or deformity. EXTREMITIES: No cyanosis, clubbing, or pedal edema. NEUROLOGICAL: Gross neurological examination did not reveal any focal deficits. SKIN: No rashes. - Labs CBC & Chem 7: 11/24/18 05:05 11/24/18 05:05 Labs: Abnormal Lab Results - Last 24 Hours (Table) 11/22/18 11/22/18 11/23/18 Range/Units 17:18 19:57 06:30 WBC 13.1 H (3.8-10.6) k/uL RBC 4.06 L (4.30-5.90) m/uL Hgb 12.9 L (13.0-17.5) gm/dL Neutrophils # 12.0 H (1.3-7.7) k/uL Lymphocytes # 0.7 L (1.0-4.8) k/uL Carbon Dioxide (22-30) mmol/L BUN (9-20) mg/dL Glucose (74-99) mg/dL POC Glucose (mg/dL) 168 H 129 H (75-99) mg/dL 11/23/18 11/23/18 11/23/18 Range/Units 06:30 07:36 12:00 WBC (3.8-10.6) k/uL RBC (4.30-5.90) m/uL Hgb (13.0-17.5) gm/dL Neutrophils # (1.3-7.7) k/uL Lymphocytes # (1.0-4.8) k/uL Carbon Dioxide 32 H (22-30) mmol/L BUN 30 H (9-20) mg/dL Glucose 154 H (74-99) mg/dL POC Glucose (mg/dL) 151 H 225 H (75-99) mg/dL Microbiology - Last 24 Hours (Table) 11/23/18 00:00 Gram Stain - Preliminary Sputum 11/20/18 03:56 Blood Culture Gram Stain - Final Blood Blood Culture - Final Streptococcus pneumoniae 11/21/18 20:17 Blood Culture - Preliminary Blood No Growth after 24 hours Assessment and Plan Assessment: Acute hypoxic respiratory failure: Secondary to most likely streptococcal pneumonia,pulmonary fibrosis. -Chronic hypoxic respiratory failure, wears 2 L at home at night. -Streptococcus pneumoniae bacteremia -systemic rheumatoid disease, follows with [facility] -hypertension next and hyperlipidemia -Coronary artery disease , history of CABG Plan: Continue on current medication regime ,monitoring and symptomatic treatment. Infectious disease requesting PICC line for IV antibiotics at discharge. PICC line pending. Maintain nebulized bronchodilators, po steroids. Discharge tomorrow. The impression and plan of care has been dictated as directed. : I performed a history and examination of this patient, discussed the same with the dictator. I agree with the dictator's note ,documented as a scribe. Any additional findings or plans will be noted.
--- NOTE | 2018-11-24 18:24 | P.DS ---
Providers Date of admission: 11/21/18 09:00 Expected date of discharge: 11/24/18 Attending physician: Beverly Rollins Consults: 11/20/18 05:27 Consult Physician Routine Consulting Provider: Josh Gupta Consult Reason/Comments: known Do you want consulting provider notified?: Yes 11/21/18 18:21 Consult Physician Routine Consulting Provider: Lázaro Owusu Consult Reason/Comments: Streptococcus pneumoniae bacteremia Do you want consulting provider notified?: Yes Primary care physician: Adolfo Burton [facility] Course: Final Diagnoses: Acute hypoxic respiratory failure: Secondary to most likely streptococcal pneumonia,pulmonary fibrosis. -Chronic hypoxic respiratory failure, wears 2 L at home at night. -Streptococcus pneumoniae bacteremia -systemic rheumatoid disease, follows with [facility],[place] -hypertension next and hyperlipidemia -Coronary artery disease , history of CABG Hospital course:83-year-old pleasant gentleman with known history of pulmonary fibrosis probably from systemic rheumatoid is also at nighttime with compensative shortness of breath. Never smoked doesn't have any history of COPD patient was started on high-dose of steroids patient will also started on' s vancomycin may not be helpful. Patient is complaining of cough with whitish sputum production. Patient denied any fever chills patient does not have any pneumonia on the chest x-ray does have pulmonary fibrosis and the fine crackles on exam which is consistent with pulmonary fibrosis. She follows up in your was to [place] for systemic rheumatoid. 11/21/2018 ambulating in hallway, O2 sat on room air post ambulation 87%. Currently maintaining O2 sats in the high 90s on 3 L nasal cannula, weaned down further to 2 L maintaining O2 sats of 97%. Productive cough with yellow sputum. Maintained on nebulized bronchodilators, systemic steroids. Blood sugars controlled. Afebrile. Blood cultures reporting Streptococcus pneumoniae , repeat blood cultures pending. Antibiotics changed to Rocephin and vancomycin. 11/22/2018 continues on Rocephin, vancomycin .maintaining O2 sats in the high 90s on 2 L nasal cannula. Reports productive cough with yellow sputum. Afebrile, leukocytosis improving, down to 18.9. Initial blood cultures reporting Streptococcus pneumoniae, sensitivities pending with repeat blood cultures in progress. Patient standing in the doorway, eager, requesting discharge today. Infectious disease consult in place with recommendations pending. 11/23/2018 maintained on cefepime and vancomycin .breathing continues to improve , maintaining O2 sats in the high 90s on 3 L nasal cannula. Occasional nonproductive cough. Afebrile, improving leukocytosis, down to 13.1. Streptococcus pneumonia in blood cultures for sensitivity reporting resistance to multiple antibiotics. Sputum culture pending. 11/24/2018 breathing improving, significant clinical improvement. PICC line placed for IV antibiotics of daptomycin at discharge. Cleared by pulmonary and infectious disease for discharge. Patient is being discharged home in a stable condition with guarded prognosis. Microbiology 11/23/18 00:00 Sputum Gram Stain - Preliminary 11/23/18 00:00 Sputum Sputum Culture - Preliminary Barbara albicans 11/20/18 03:56 Blood Blood Culture Gram Stain - Final 11/20/18 03:56 Blood Blood Culture - Final Streptococcus pneumoniae 11/21/18 20:17 Blood Blood Culture - Preliminary No Growth after 48 hours 11/22/18 17:40 Blood Blood Culture - Preliminary No Growth after 24 hours 11/20/18 03:56 Blood Blood Culture - Final - Exam GENERAL: alert and oriented x3, no acute distress. CARDIOVASCULAR: S1 and S2 present. No murmurs, rubs, or gallops. PULMONARY: Unlabored, Equal air entry with fine bilateral basilar Velcro basilar crackles ABDOMEN: Soft, nontender, nondistended, normoactive bowel sounds. No palpable organomegaly. NEUROLOGICAL: Gross neurological examination did not reveal any focal deficits. The impression and plan of care has been dictated as directed. : I performed a history and examination of this patient, discussed the same with the dictator. I agree with the dictator's note ,documented as a scribe. Any additional findings or plans will be noted. Time taken: 35 minutes Patient Condition at Discharge: Stable Plan - Discharge Summary Discharge Rx Participant: No New Discharge Prescriptions: New DAPTOmycin [Daptomycin] 500 mg IV DAILY #13 vial Sodium Chloride 0.65% Nasal [Deep Sea (Saline)] 2 spray NASAL QID PRN spray PRN Reason: Congestion predniSONE 10 mg PO DAILY #30 tab Continue Vit C/E/Zn/Coppr/Lutein/Zeaxan [Preservision Areds 2 Softgel] 1 cap PO DAILY Pantoprazole [Protonix] 40 mg PO DAILY Aspirin EC [Ecotrin Low Dose] 81 mg PO DAILY Metoprolol Tartrate [Lopressor] 12.5 mg PO BID Clopidogrel [Plavix] 75 mg PO DAILY Allopurinol [Zyloprim] 300 mg PO DAILY Ondansetron Odt [Zofran ODT] 4 mg PO Q8HR PRN #10 tab PRN Reason: Nausea Benzonatate [Tessalon Perles] 200 mg PO TID Promethazine HCl/Codeine [Promethazine-Codeine Syrup] 5 ml PO Q6H PRN PRN Reason: Cough predniSONE 5 mg PO DAILY #0 Discontinued Atorvastatin [Lipitor] 10 mg PO PC-SUPPER #30 tab Discharge Medication List Allopurinol [Zyloprim] 300 mg PO DAILY 03/25/18 [History] Aspirin EC [Ecotrin Low Dose] 81 mg PO DAILY 03/25/18 [History] Clopidogrel [Plavix] 75 mg PO DAILY 03/25/18 [History] Metoprolol Tartrate [Lopressor] 12.5 mg PO BID 03/25/18 [History] Pantoprazole [Protonix] 40 mg PO DAILY 03/25/18 [History] Vit C/E/Zn/Coppr/Lutein/Zeaxan [Preservision Areds 2 Softgel] 1 cap PO DAILY 06/04 [History] Ondansetron Odt [Zofran ODT] 4 mg PO Q8HR PRN #10 tab 10/10/18 [Rx] Benzonatate [Tessalon Perles] 200 mg PO TID 11/20/18 [History] Promethazine HCl/Codeine [Promethazine-Codeine Syrup] 5 ml PO Q6H PRN 11/20/18 [ History] DAPTOmycin [Daptomycin] 500 mg IV DAILY #13 vial 11/24/18 [Rx] Sodium Chloride 0.65% Nasal [Deep Sea (Saline)] 2 spray NASAL QID PRN spray 05/05 [Rx] predniSONE 5 mg PO DAILY #0 11/24/18 [Rx] predniSONE 10 mg PO DAILY #30 tab 11/24/18 [Rx] Follow up Appointment(s)/Referral(s): Lázaro Owusu MD [STAFF PHYSICIAN] - 12/05/18 10:15 am Adolfo Burton MD [Primary Care Provider] - 11/28/18 1:30 pm Ambulatory/Diagnostic Orders: Complete Blood Count w/diff [LAB.AMB] Time Frame: 3 Days, Location: None Selected Patient Instructions/Handouts: COPD (Chronic Obstructive Pulmonary Disease) (DC ) Activity/Diet/Wound Care/Special Instructions: Labs : baseline CRP with weekly monitoring ; Please go to 's office for first IV antibiotic administration tomorrow between 12-3pm. 's office: [address] [place] [address]; #[phone] Discharge Disposition: HOME SELF-CARE
--- NOTE | 2018-12-06 07:52 | IR ---
PICC LINE PLACEMENT: HISTORY: Infection requiring long-term antibiotic therapy PROCEDURE: Ultrasound and fluoroscopic guidance of PICC line placement. COMPLICATIONS: None ANESTHESIA: 1. 1% Lidocaine locally. FINDINGS/TECHNIQUE: The procedure was explained to the patient. The risks, complications, benefits and alternatives were discussed and any questions were answered. Informed consent was obtained. The patient was placed supine on the fluoroscopic table and prepped and draped in the usual sterile fash ion. Utilizing a 21 gauge needle and sonographic and fluoroscopic guidance, access in the left basi lic vein vein was achieved and there is placement of a 0.018 guidewire. The vein is patent. A 4-F s charles was placed over the guidewire. The guidewire and dilator were removed and a 4-F. PICC line was placed through the sheath with the tip at the level of the SVC. The sheath was removed, the cathete r was flushed and sutured into position. The patient was stable throughout the procedure and remaine d stable upon discharge from the Department of Radiology. The vein puncture was patent under ultrasound. A yoder scale image was obtained to document patency of the vein punctured. All elements of the maximal barrier technique were utilized. FLUOROSCOPY TIME: 0.5 minutes and one image submitted IMPRESSION: Successful PICC line placement under ultrasound and fluoroscopic guidance.
== END 2018-11-24 17:15 | disposition home or self-care (01) | DRG 193 ==
LOC: EC 03:11 → 4SSUR 05:27 → OBSVTOIN 11-21 09:00
PROVIDERS: ADMIT Hospitalist; ATTEND Hospitalist
PROC: 02HV33Z Insertion of Infusion Device into Superior Vena Cava, Percutaneous Approach (ICD-10-PCS; principal; 2018-11-24 10:00)
DX: J15.4 Pneumonia due to other streptococci (principal); J96.21 Acute and chronic respiratory failure with hypoxia; R78.81 Bacteremia; J84.10 Pulmonary fibrosis, unspecified; K21.9 Gastro-esophageal reflux disease without esophagitis; B95.3 Streptococcus pneumoniae as the cause of diseases classified elsewhere; E78.5 Hyperlipidemia, unspecified; I10 Essential (primary) hypertension; I25.10 Atherosclerotic heart disease of native coronary artery without angina pectoris; M06.9 Rheumatoid arthritis, unspecified; M10.9 Gout, unspecified; T38.0X5A Adverse effect of glucocorticoids and synthetic analogues, initial encounter; Z79.02 Long term (current) use of antithrombotics/antiplatelets; Z79.52 Long term (current) use of systemic steroids; Z79.82 Long term (current) use of aspirin; Z79.899 Other long term (current) drug therapy; Z82.49 Family history of ischemic heart disease and other diseases of the circulatory system; Z85.828 Personal history of other malignant neoplasm of skin; Z86.79 Personal history of other diseases of the circulatory system; Z87.891 Personal history of nicotine dependence; Z95.1 Presence of aortocoronary bypass graft
CPT/HCPCS: 36415; 36573; 71045; 71046; 80048; 80053; 80202; 82550; 82553; 83735; 83880; 84484; 85025; 85027; 85610; 85730; 87040; 87070; 87077; 87186; 87205; 93005; 94640; 94760; 96361; 96374; 96375; 99285

== ENCOUNTER → 2018-12-07 | Outpatient (CLI) | payer MEDICARE, BC ==
--- NOTE | 2018-12-07 11:45 | XR ---
EXAMINATION TYPE: XR chest 2V DATE OF EXAM: 12/07/2018 COMPARISON: 11/23/2018 TECHNIQUE: PA and lateral views submitted. HISTORY: Shortness of breath FINDINGS: Patient is post median sternotomy. Interstitial changes are again noted within the lungs. Pleural thi ckening is present along the right apex and lateral chest margin. No pneumothorax or evident effusion . Heart size is stable. Suspect some improvement in aeration right upper lobe. IMPRESSION: 1. Diffuse changes of pulmonary fibrosis. Persistent areas of more localized consolidation involving the right apex and right upper lobe laterally are stable. Neoplastic process at the apex not excluded ..
== END | disposition home or self-care (01) ==
LOC: RADXRMAIN 11:02
PROVIDERS: ATTEND Internal Medicine Infectious Disease
DX: J84.10 Pulmonary fibrosis, unspecified (principal); J13 Pneumonia due to Streptococcus pneumoniae
CPT/HCPCS: 71046

== ENCOUNTER → 2018-12-08 | Outpatient (CLI) | payer MEDICARE, BC ==
--- NOTE | 2018-12-08 09:24 | CT ---
EXAMINATION TYPE: CT chest w con DATE OF EXAM: 12/08/2018 COMPARISON: 11/05/2018 HISTORY: pneumonia due to streptococcus CT DLP: 395 mGycm Automated exposure control for dose reduction was used. CONTRAST: CT scan of the chest is performed with IV Contrast, patient injected with 100 mL of Isovue 300. FINDINGS: LUNGS: There is honeycombing noted to involve the bilateral lungs greatest at the lung bases compatib le with underlying idiopathic pulmonary fibrosis. Overall appearance is stable to the prior study. No focal consolidation evident. No evidence for mass or distinct nodule at this time. Diminished lung v olumes noted. MEDIASTINUM: There are no greater than 1 cm hilar or mediastinal lymph nodes. No pericardial effusi on is seen. Thoracic aorta is of normal caliber. The heart is mildly enlarged. Changes of median beverley rnotomy. UPPER ABDOMEN: No significant abnormality appreciated. OTHER: No additional significant abnormality is seen. IMPRESSION: 1. Stable features of idiopathic pulmonary fibrosis without evidence for focal infiltrate or distinct mass at this time.
== END | disposition home or self-care (01) ==
LOC: RADPROMAIN 08:24
PROVIDERS: ATTEND Internal Medicine Infectious Disease
DX: J84.112 Idiopathic pulmonary fibrosis (principal)
CPT/HCPCS: 71260; Q9967

== ENCOUNTER 2021-06-08 01:39 | Inpatient (IN) | payer MEDICARE, BC ==
--- NOTE | 2021-06-08 02:28 | ED ---
SOB HPI - General Source: patient, RN notes reviewed Mode of arrival: ambulatory <Ruslan Edwards - Last Filed: 06/08/21 02:43> <Enoc Marquis - Last Filed: 06/08/21 05:21> - General Chief Complaint: Shortness of Breath Stated Complaint: Shortness of Breath Time Seen by Provider: 06/08/21 02:16 - History of Present Illness Initial Comments: Patient is an 86-year-old male that presents to the emergency Department complaining of a cough. He notes that he does have a history of pulmonary fibrosis and wears 5 L of oxygen via nasal cannula at home. He notes that he was watching the tigers and didn't feel too good because he lost. He notes that after this he started having low bit of a cough and decided would be better to come in to get evaluated then waited out. notes that he usually doesn't cough too much. Patient was a pleasant well-appearing 86-year-old male in no apparent distress or pain while sitting up in bed during the exam and interview.. He denied any chest pain increased shortness of breath headache na usea vomiting diarrhea constipation fever fatigue chills. (Ruslan Edwards) - Related Data Home Medications Medication Instructions Recorded Confirmed Aspirin EC [Ecotrin Low Dose] 81 mg PO DAILY 03/25/18 11/20/18 Clopidogrel [Plavix] 75 mg PO DAILY 03/25/18 11/20/18 Metoprolol Tartrate [Lopressor] 12.5 mg PO BID 03/25/18 11/20/18 Pantoprazole [Protonix] 40 mg PO DAILY 03/25/18 11/20/18 Vit C/E/Zn/Coppr/Lutein/Zeaxan 1 cap PO DAILY 03/25/18 11/20/18 [Preservision Areds 2 Softgel] allopurinoL [Zyloprim] 300 mg PO DAILY 03/25/18 11/20/18 Benzonatate [Tessalon Perles] 200 mg PO TID 11/20/18 11/20/18 Promethazine HCl/Codeine 5 ml PO Q6H PRN 11/20/18 11/20/18 [Promethazine-Codeine Syrup] Previous Rx's Medication Instructions Recorded Ondansetron Odt [Zofran ODT] 4 mg PO Q8HR PRN #10 tab 10/10/18 DAPTOmycin [Daptomycin] 500 mg IV DAILY #13 vial 11/24/18 Sodium Chloride 0.65% Nasal [Deep 2 spray NASAL QID PRN spray 11/24/18 Sea (Saline)] predniSONE 5 mg PO DAILY #0 11/24/18 predniSONE 10 mg PO DAILY #30 tab 11/24/18 Allergies Allergy/AdvReac Type Severity Reaction Status Date / Time No Known Allergies Allergy Verified 06/08/21 01:55 Review of Systems ROS Other: All systems not noted in ROS Statement are negative. <Ruslan Edwards - Last Filed: 06/08/21 02:43> ROS Other: All systems not noted in ROS Statement are negative. <Enoc Marquis - Last Filed: 06/08/21 05:21> ROS Statement: Those systems with pertinent positive or pertinent negative responses have been documented in the HPI. 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 History of Any Multi-Drug Resistant Organisms: None Reported Past Surgical History: No Surgical Hx Reported Additional Past Surgical History / Comment(s): triple vessel cabg, skin cancer removed nose and lt shoulder, thom cataracts. Past Anesthesia/Blood Transfusion Reactions: No Reported Reaction Past Psychological History: No Psychological Hx Reported Smoking Status: Never smoker Past Alcohol Use History: Occasional Past Drug Use History: None Reported - Past Family History Mother Additional Family Medical History / Comment(s): pulmonary fibrosis Father Family Medical History: Myocardial Infarction ([place]) <Ruslan Edwards - Last Filed: 06/08/21 02:43> General Exam General appearance: alert, in no apparent distress Head exam: Present: atraumatic, normocephalic, normal inspection Eye exam: Present: normal appearance, PERRL, EOMI. Absent: scleral icterus, conjunctival injection, periorbital swelling Neck exam: Present: normal inspection Respiratory exam: Present: normal lung sounds bilaterally, other (Nasal cannula in place). Absent: respiratory distress, wheezes, rales, rhonchi, stridor Cardiovascular Exam: Present: regular rate, normal rhythm, normal heart sounds. Absent: systolic murmur, diastolic murmur, rubs, gallop, clicks GI/Abdominal exam: Present: soft, normal bowel sounds. Absent: distended, tenderness, guarding, rebound, rigid Extremities exam: Present: normal inspection, full ROM, normal capillary refill. Absent: tenderness, pedal edema, joint swelling, calf tenderness Neurological exam: Present: alert, oriented X3 Psychiatric exam: Present: normal affect, normal mood Skin exam: Present: warm, dry, intact, normal color. Absent: rash <Ruslan Edwards - Last Filed: 06/08/21 02:43> General appearance: alert, in no apparent distress Head exam: Present: atraumatic, normocephalic, normal inspection Eye exam: Present: normal appearance, PERRL, EOMI. Absent: scleral icterus, conjunctival injection, periorbital swelling ENT exam: Present: normal exam, mucous membranes moist Neck exam: Present: normal inspection. Absent: tenderness, meningismus, lymphadenopathy Respiratory exam: Present: normal lung sounds bilaterally. Absent: respiratory distress, wheezes, rales, rhonchi, stridor Cardiovascular Exam: Present: regular rate, normal rhythm, normal heart sounds. Absent: systolic murmur, diastolic murmur, rubs, gallop, clicks GI/Abdominal exam: Present: soft, normal bowel sounds. Absent: distended, tenderness, guarding, rebound, rigid Extremities exam: Present: normal inspection, full ROM, normal capillary refill. Absent: tenderness, pedal edema, joint swelling, calf tenderness Back exam: Present: normal inspection Neurological exam: Present: alert, oriented X3, CN II-XII intact Psychiatric exam: Present: normal affect, normal mood Skin exam: Present: warm, dry, intact, normal color. Absent: rash <Enoc Marquis - Last Filed: 06/08/21 05:21> Course <Enoc Marquis - Last Filed: 06/08/21 05:21> Vital Signs 06/08/21 06/08/21 06/08/21 01:51 03:02 03:19 Temperature 98.2 F Pulse Rate 95 93 99 Respiratory 22 Rate Blood Pressure 138/79 O2 Sat by Pulse 93 L Oximetry 06/08/21 06/08/21 04:19 04:35 Temperature Pulse Rate 96 94 Respiratory Rate Blood Pressure O2 Sat by Pulse Oximetry - Reevaluation(s) Reevaluation #1: 06/08/21 05:20 Attic record is reviewed (Enoc Marquis) Reevaluation #2: 06/08/21 05:20 Patient informed of results and questions answered (Enoc Marquis) Medical Decision Making - Radiology Data Radiology results: report reviewed, image reviewed <Ruslan Edwards - Last Filed: 06/08/21 02:43> - Lab Data Result diagrams: 06/08/21 02:23 06/08/21 02:23 - EKG Data -: EKG Interpreted by Me (EKG shows sinus rhythm 92 [place] 128 QRS 78 QTc 457) - Radiology Data Radiology results: report reviewed (Chest x-rays no acute disease), image reviewed <Enoc Marquis - Last Filed: 06/08/21 05:21> - Medical Decision Making 86-year-old male complaining of a cough times one, history of pulmonary fibrosis wears 5 L of nasal oxygen. 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 (Ruslan Edwards) 86 male to be admitted for shortness of breath chronic pulmonary fibrosis possibility of pneumonia with elevated white blood cell count and change in sputum production over today. Patient be admitted for antibiotics (Enoc Marquis) - Lab Data Lab Results 06/08/21 06/08/21 06/08/21 Range/Units 02:23 02:23 02:23 WBC 21.0 H (3.8-10.6) k/uL RBC 4.21 L (4.30-5.90) m/uL Hgb 13.9 (13.0-17.5) gm/dL Hct 42.7 (39.0-53.0) % MCV 101.6 H (80.0-100.0) fL MCH 33.1 (25.0-35.0) pg MCHC 32.6 (31.0-37.0) g/dL RDW 13.9 (11.5-15.5) % Plt Count 253 (150-450) k/uL MPV 7.2 Neutrophils % 84 % Lymphocytes % 10 % Monocytes % 3 % Eosinophils % 2 % Basophils % 0 % Neutrophils # 17.6 H (1.3-7.7) k/uL Lymphocytes # 2.0 (1.0-4.8) k/uL Monocytes # 0.7 (0-1.0) k/uL Eosinophils # 0.5 (0-0.7) k/uL Basophils # 0.1 (0-0.2) k/uL Macrocytosis Slight PT 10.8 (9.0-12.0) sec INR 1.0 (<1.2) APTT 23.2 (22.0-30.0) sec Sodium 135 L (137-145) mmol/L Potassium 4.4 (3.5-5.1) mmol/L Chloride 95 L (98-107) mmol/L Carbon Dioxide 34 H (22-30) mmol/L Anion Gap 6 mmol/L BUN 20 (9-20) mg/dL Creatinine 0.78 (0.66-1.25) mg/dL Est GFR (CKD-EPI)AfAm >90 (>60 ml/min/1.73 sqM) Est GFR (CKD-EPI)NonAf 83 (>60 ml/min/1.73 sqM) Glucose 108 H (74-99) mg/dL Plasma Lactic Acid Perfecto (0.7-2.0) mmol/L Calcium 9.6 (8.4-10.2) mg/dL Total Bilirubin 0.9 (0.2-1.3) mg/dL AST 40 (17-59) U/L ALT 25 (4-49) U/L Alkaline Phosphatase 79 (38-126) U/L Troponin I (0.000-0.034) ng/mL C-Reactive Protein (<1.0) mg/dL Total Protein 6.3 (6.3-8.2) g/dL Albumin 3.8 (3.5-5.0) g/dL Coronavirus (PCR) (Not Detectd) 06/08/21 06/08/21 06/08/21 Range/Units 02:23 02:23 02:23 WBC (3.8-10.6) k/uL RBC (4.30-5.90) m/uL Hgb (13.0-17.5) gm/dL Hct (39.0-53.0) % MCV (80.0-100.0) fL MCH (25.0-35.0) pg MCHC (31.0-37.0) g/dL RDW (11.5-15.5) % Plt Count (150-450) k/uL MPV Neutrophils % % Lymphocytes % % Monocytes % % Eosinophils % % Basophils % % Neutrophils # (1.3-7.7) k/uL Lymphocytes # (1.0-4.8) k/uL Monocytes # (0-1.0) k/uL Eosinophils # (0-0.7) k/uL Basophils # (0-0.2) k/uL Macrocytosis PT (9.0-12.0) sec INR (<1.2) APTT (22.0-30.0) sec Sodium (137-145) mmol/L Potassium (3.5-5.1) mmol/L Chloride (98-107) mmol/L Carbon Dioxide (22-30) mmol/L Anion Gap mmol/L BUN (9-20) mg/dL Creatinine (0.66-1.25) mg/dL Est GFR (CKD-EPI)AfAm (>60 ml/min/1.73 sqM) Est GFR (CKD-EPI)NonAf (>60 ml/min/1.73 sqM) Glucose (74-99) mg/dL Plasma Lactic Acid Perfecto 1.5 (0.7-2.0) mmol/L Calcium (8.4-10.2) mg/dL Total Bilirubin (0.2-1.3) mg/dL AST (17-59) U/L ALT (4-49) U/L Alkaline Phosphatase (38-126) U/L Troponin I 0.012 (0.000-0.034) ng/mL C-Reactive Protein (<1.0) mg/dL Total Protein (6.3-8.2) g/dL Albumin (3.5-5.0) g/dL Coronavirus (PCR) Not Detected (Not Detectd) 06/08/21 Range/Units 02:23 WBC (3.8-10.6) k/uL RBC (4.30-5.90) m/uL Hgb (13.0-17.5) gm/dL Hct (39.0-53.0) % MCV (80.0-100.0) fL MCH (25.0-35.0) pg MCHC (31.0-37.0) g/dL RDW (11.5-15.5) % Plt Count (150-450) k/uL MPV Neutrophils % % Lymphocytes % % Monocytes % % Eosinophils % % Basophils % % Neutrophils # (1.3-7.7) k/uL Lymphocytes # (1.0-4.8) k/uL Monocytes # (0-1.0) k/uL Eosinophils # (0-0.7) k/uL Basophils # (0-0.2) k/uL Macrocytosis PT (9.0-12.0) sec INR (<1.2) APTT (22.0-30.0) sec Sodium (137-145) mmol/L Potassium (3.5-5.1) mmol/L Chloride (98-107) mmol/L Carbon Dioxide (22-30) mmol/L Anion Gap mmol/L BUN (9-20) mg/dL Creatinine (0.66-1.25) mg/dL Est GFR (CKD-EPI)AfAm (>60 ml/min/1.73 sqM) Est GFR (CKD-EPI)NonAf (>60 ml/min/1.73 sqM) Glucose (74-99) mg/dL Plasma Lactic Acid Perfecto (0.7-2.0) mmol/L Calcium (8.4-10.2) mg/dL Total Bilirubin (0.2-1.3) mg/dL AST (17-59) U/L ALT (4-49) U/L Alkaline Phosphatase (38-126) U/L Troponin I (0.000-0.034) ng/mL C-Reactive Protein 1.3 H (<1.0) mg/dL Total Protein (6.3-8.2) g/dL Albumin (3.5-5.0) g/dL Coronavirus (PCR) (Not Detectd) - Radiology Data Chest x-ray: Advanced pulmonary fibrosis. No change compared to old exam. (Ruslan Edwards) Disposition <Ruslan Edwards - Last Filed: 06/08/21 02:43> <Enoc Marquis - Last Filed: 06/08/21 05:21> Clinical Impression: Pulmonary fibrosis, Leukocytosis, Acute respiratory failure with hypoxia Disposition: ADMITTED IP TO THIS HOSP Condition: Serious
[2021-06-08] MEDS ORDERED: IPRATROPIUM-ALBUTEROL 3 ML NEB INHALATION STA ×2 (02:38→04:10)
[2021-06-08] MEDS ORDERED: DEXAMETHASONE SOD PHOSPHATE 10 MG/ML 1 ML VIAL IV STA (02:38)
--- NOTE | 2021-06-08 02:41 | XR ---
EXAMINATION TYPE: XR chest 2V DATE OF EXAM: 06/08/2021 COMPARISON: 12/07/2018 HISTORY: Short of breath TECHNIQUE: FINDINGS: There is extensive coarse interstitial infiltrate throughout the lungs. There are sternal w ires. Heart is top normal in size. Pulmonary vascularity is difficult to evaluate. I see no definite heart failure. There is no pleural effusion. IMPRESSION: Advanced pulmonary fibrosis. No change compared to old exam.
[2021-06-08 03:11] LABS: Basophils # (A) 0.1 k/uL (0-0.2); Basophils % (A) 0 %; Eosinophils # (A) 0.5 k/uL (0-0.7); Eosinophils % (A) 2 %; HCT 42.7 % (39.0-53.0); HGB 13.9 gm/dL (13.0-17.5); Lymphocytes % (A) 10 %; MCH 33.1 pg (25.0-35.0); MCHC 32.6 g/dL (31.0-37.0); MCV 101.6 fL (80.0-100.0); Macrocytosis Slight; Mean Platelet Volume 7.2; Monocytes # (A) 0.7 k/uL (0-1.0); Monocytes % (A) 3 %; Neutrophils # (A) 17.6 k/uL (1.3-7.7); Neutrophils % (A) 84 %; Platelet Count 253 k/uL (150-450); RBC 4.21 m/uL (4.30-5.90); RDW 13.9 % (11.5-15.5)
[2021-06-08 03:27] LABS: ALT 25 U/L (4-49); AST 40 U/L (17-59); African American GFR (CKD) >90 (>60 ml/min/1.73 sqM); Albumin 3.8 g/dL (3.5-5.0); Alkaline Phosphatase 79 U/L (38-126); Anion Gap 6 mmol/L; Blood Urea Nitrogen 20 mg/dL (9-20); Calcium 9.6 mg/dL (8.4-10.2); Carbon Dioxide 34 mmol/L (22-30); Chloride 95 mmol/L (98-107); Glucose 108 mg/dL (74-99); Non-African American GFR(CKD) 83 (>60 ml/min/1.73 sqM); Potassium 4.4 mmol/L (3.5-5.1); Sodium 135 mmol/L (137-145); Total Bilirubin 0.9 mg/dL (0.2-1.3); Total Protein 6.3 g/dL (6.3-8.2)
[2021-06-08 03:33] LABS: Partial Thromboplastin Time 23.2 sec (22.0-30.0); Prothrombin Time 10.8 sec (9.0-12.0)
[2021-06-08] MEDS ORDERED: ONDANSETRON 4 MG/2 ML VIAL IVP PRN (04:10)
[2021-06-08] MEDS ORDERED: MORPHINE SULFATE 4 MG/ML SYRINGE IV PRN (04:10)
[2021-06-08] MEDS ORDERED: ALBUTEROL NEBULIZED 1.25 MG/3 ML INHALATION PRN (04:10)
[2021-06-08] MEDS ORDERED: AZITHROMYCIN 500 MG in SODIUM CHLORIDE 0.9% 250 ML IVPB STA (04:10)
[2021-06-08] MEDS ORDERED: NALOXONE 0.4 MG/ML 1 ML VIAL IV PRN (04:10)
[2021-06-08] MEDS: SODIUM CHLORIDE 0.9% 1,000 ML IV SCH ×2 (06:06→12:38)
[2021-06-08] MEDS: ALBUTEROL NEBULIZED 2.5 MG/3 ML INHALATION PRN ×2 (07:44→11:38)
[2021-06-08] MEDS ORDERED: IPRATROPIUM-ALBUTEROL 3 ML NEB INHALATION PRN (12:15)
--- NOTE | 2021-06-08 12:16 | P.CNPUL ---
History of Present Illness Consult date: 06/08/21 Reason for consult: dyspnea History of present illness: 9-year-old male patient with known history of IPF in addition to RA, microscopic polyangiitis whereas been followed up at [facility] by Dr. Hsu,, hypertension and hyperlipidemia who has been followed up in our office for pulmonary fibrosis. The patient typically follows up with Dr. Gupta and he used to received Rituxan infusions for his rheumatoid arthritis and he is off for the past 2 years. He is also on a maintenance prednisone of 10 mg on a daily basis. His last hospitalization was in 2019. The patient's most recent pulmonary function test that showed an FVC of 63% of predicted and total lung capacity of 60% of predicted and diffusion capacity of 64% of predicted. He is on O2 on 5 liters the patient reports that his been progressively getting worse in terms of his breathing over this past few years. He has not had a breathing test recently because of COVID-19 situation. Over this past few weeks, his breathing is better and worse. He is quite limited in terms of his exercise capacity and the patient gets short of breath with minimal amount of activity and sometimes even at rest. On and off, he has coughing spells and he has dry cough and is not brave able to bring any significant sputum. No major edema lower extremities. Pain or tenderness. No altered mentation. Family is at the bedside. Chest x-ray was reviewed and is consistent with pulmonary fibrosis. White cell count is at 21. The COVID-19 testing by PCR came back negative and the patient is fully vaccinated. Review of Systems Constitutional: Reports poor appetite, Reports weakness Eyes: denies blurred vision, denies decreased vision Ears: bilateral: decreased hearing Ears, nose, mouth and throat: Denies headache, Denies sore throat Cardiovascular: Denies chest pain, Denies shortness of breath Respiratory: Reports cough, Reports dyspnea, Reports home oxygen Gastrointestinal: Reports abdominal pain, Reports diarrhea Genitourinary: Reports as per HPI Musculoskeletal: Reports limitation of motion, Reports myalgias Integumentary: Denies pruritus, Denies rash Neurological: Denies numbness, Denies weakness Psychiatric: Denies anxiety, Denies depression Endocrine: Denies fatigue, Denies weight change Past Medical History Past Medical History: GERD/Reflux, Hyperlipidemia, Hypertension, Rheumatoid Arthritis (RA) Additional Past Medical History / Comment(s): Gout, pulmonary fibrosis , rheumatoid arthritis, gout, hypertension, hyperlipidemia, acid reflux, coronary artery bypass surgery for underlying coronary artery disease, history of skin cancer, 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 History of Any Multi-Drug Resistant Organisms: None Reported Past Surgical History: No Surgical Hx Reported Additional Past Surgical History / Comment(s): triple vessel cabg, skin cancer removed nose and lt shoulder, thom cataracts. Past Anesthesia/Blood Transfusion Reactions: No Reported Reaction Past Psychological History: No Psychological Hx Reported Smoking Status: Never smoker Past Alcohol Use History: Occasional Past Drug Use History: None Reported - Past Family History Mother Additional Family Medical History / Comment(s): pulmonary fibrosis Father Family Medical History: Myocardial Infarction ([place]) Medications and Allergies Home Medications Medication Instructions Recorded Confirmed Type Aspirin EC [Ecotrin Low Dose] 81 mg PO DAILY 03/25/18 06/08/21 History Metoprolol Tartrate [Lopressor] 12.5 mg PO BID 03/25/18 06/08/21 History Vit C/E/Zn/Coppr/Lutein/Zeaxan 1 cap PO DAILY 03/25/18 06/08/21 History [Preservision Areds 2 Softgel] allopurinoL [Zyloprim] 300 mg PO DAILY 03/25/18 06/08/21 History predniSONE 10 mg PO DAILY #30 tab 11/24/18 06/08/21 Rx Alendronate Sodium 70 mg PO CARDOZA 06/08/21 06/08/21 History Lovastatin [Altoprev] 40 mg PO HS 06/08/21 06/08/21 History Allergies Allergy/AdvReac Type Severity Reaction Status Date / Time No Known Allergies Allergy Verified 06/08/21 08:24 Physical Exam Vitals: Vital Signs Temp Pulse Resp BP Pulse Ox 06/08/21 11:57 90 06/08/21 11:41 90 06/08/21 08:03 96 06/08/21 07:47 102 H 06/08/21 06:07 98.3 F 91 18 131/82 96 06/08/21 04:35 94 06/08/21 04:19 96 06/08/21 03:19 99 06/08/21 03:02 93 06/08/21 01:51 98.2 F 95 22 138/79 93 L Intake and Output 06/07/21 06/08/21 06/08/21 22:59 06:59 14:59 Other: Weight 79.379 kg - Constitutional General appearance: average body habitus - EENT Eyes: EOMI, PERRLA ENT: hard of hearing Ears: bilateral: normal - Neck Neck: normal ROM, Neck was supple and without jugular venous distension, thyromegaly, or carotid bruits. Carotids were easily palpable bilaterally. There was no adenopathy. Carotids: bilateral: upstroke normal Thyroid: bilateral: normal size - Respiratory Respiratory: bilateral: diminished, rales, course crackles especially in the mid and lower lung mejia bilaterally. - Cardiovascular Rhythm: regular Heart sounds: normal: S1, S2 - Gastrointestinal General gastrointestinal: normal bowel sounds Localized gastrointestinal: tender: diffuse - Integumentary Integumentary: normal turgor, my normal skin - Neurologic Neurologic: CNII-XII intact - Musculoskeletal Musculoskeletal: generalized weakness - Psychiatric Psychiatric: A&O x's 3, intact judgment & insight Results - Laboratory Findings CBC and BMP: 06/08/21 02:23 06/08/21 02:23 PT/INR, D-dimer PT 10.8 sec (9.0-12.0) 06/08/21 02:23 INR 1.0 (<1.2) 06/08/21 02:23 Abnormal lab findings: Abnormal Labs 06/08/21 06/08/21 06/08/21 02:23 02:23 02:23 WBC 21.0 H RBC 4.21 L MCV 101.6 H Neutrophils # 17.6 H Sodium 135 L Chloride 95 L Carbon Dioxide 34 H Glucose 108 H C-Reactive Protein 1.3 H - Diagnostic Findings Chest x-ray: image reviewed Assessment and Plan Plan: 1 acute shortness of breath secondary probably related to worsening in his pulmonary fibrosis. Chest x-ray is consistent with pulmonary fibrosis. The patient's oxidation progressively has gotten worse over the years and currently is on 5 L. It's hard to rule out possibility of a superinfection at this point in time. Pulmonary embolism contiguity to worsening shortness of breath is felt to be less likely. In any rate, a CT angiogram will be done to assess the progression of pulmonary fibrosis and rule out any other causes contributing to shortness of breath. The patient is currently on a combination of bronchodilators and steroids and antibiotics. 2 pulmonary fibrosis with chronic hypoxic respiratory failure maintained on 2 L of oxygen nasal cannula 3 rheumatoid arthritis 4 hypertension 5 hyperlipidemia 6 coronary artery disease 7 gout Plan Continue current treatment. Continue bronchodilators steroids and antibiotics. Proceed with a CAT scan of the chest, this will be in the form of CT angiogram. Keep oxygen at 5 L per minute nasal cannula.
[2021-06-08] MEDS: methylPREDNISolone SOD SUCCI 125 MG/2 ML VIAL IV SCH ×2 (12:39→17:39)
[2021-06-08] MEDS: IPRATROPIUM-ALBUTEROL 3 ML NEB INHALATION SCH (15:31)
--- NOTE | 2021-06-08 16:16 | CT ---
EXAMINATION TYPE: CT chest angio for PE DATE OF EXAM: 06/08/2021 COMPARISON: Chest radiograph same day CT chest 12/08/2018 HISTORY: Dyspnea. CT DLP: 242.1 mGycm Automated exposure control for dose reduction was used. CONTRAST: CT Chest for pulmonary embolism performed with with IV Contrast, patient injected with 63ml mL of Iso jelena 370. Sagittal and coronal reformatted images were obtained. FINDINGS: Cardiac appears mildly enlarged. No pericardial effusion. Scattered atherosclerotic calcifications of the thoracic aorta which appears of normal caliber. Main and proximal pulmonary arteries normal alesha dhaval without central filling defects to suggest pulmonary embolism. Limited evaluation of the subsegme ntal branches secondary to parenchymal disease and breathing motion. Central airways are normal course and caliber. Subpleural interstitial thickening and reticulation wi th basilar predominant honeycombing which has mildly progressed compared to 2019. No dense focal cons olidation or pneumothorax. No pleural effusion. Moderate multilevel degenerative changes of the thoracic spine. Multiple sternotomy wires and mediast inal clips are present. IMPRESSION: 1. No definite pulmonary embolism; however, evaluation is limited secondary to breathing motion and u nderlying parenchymal disease. 2. Interstitial lung changes with basilar predominant honeycombing consistent with usual interstitial pneumonia, which has mildly progressed compared to 2019. 3. No dense focal consolidation, pleural effusion, or pneumothorax.
--- NOTE | 2021-06-08 18:38 | P.HPIM ---
History of Present Illness H&P Date: 06/08/21 Chief Complaint: Shortness of breath 86-year-old male that presents to the emergency Department complaining of a cough. He notes that he does have a history of pulmonary fibrosis and wears 5 L of oxygen via nasal cannula at home. He notes that he was watching the tigers a nd didn't feel too good because he lost. He notes that after this he started having low bit of a cough and decided would be better to come in to get evaluated then waited out. notes that he usually doesn't cough too much. Patient was a pleasant well-appearing 86-year-old male in no apparent distress or pain while sitting up in bed during the exam and interview.. He denied any chest pain increased shortness of breath headache nausea vomiting diarrhea constipation fever fatigue chills. Initial workup in ED reveals WBC of 21.0, hemoglobin of 13.9 and platelet count of 253, sodium 135, potassium 4.4, BUN/creatinine of 20/0.78; chest x-ray reveals pulmonary fibrosis Review of Systems REVIEW OF SYSTEMS: CONSTITUTIONAL: No fever, no malaise, no fatigue. HEENT: No recent visual problems or hearing problems. Denied any sore throat. CARDIOVASCULAR: No chest pain, orthopnea, PND, no palpitations, no syncope. PULMONARY: No shortness of breath, no cough, no hemoptysis. GASTROINTESTINAL: No diarrhea, no nausea, no vomiting, no abdominal pain. NEUROLOGICAL: No headaches, no weakness, no numbness. HEMATOLOGICAL: Denies any bleeding or petechiae. GENITOURINARY: Denies any burning micturition, frequency, or urgency. MUSCULOSKELETAL/RHEUMATOLOGICAL: Denies any joint pain, swelling, or any muscle pain. ENDOCRINE: Denies any polyuria or polydipsia. The rest of the 14-point review of systems is negative. 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 History of Any Multi-Drug Resistant Organisms: None Reported Past Surgical History: No Surgical Hx Reported Additional Past Surgical History / Comment(s): triple vessel cabg, skin cancer removed nose and lt shoulder, thom cataracts. Past Anesthesia/Blood Transfusion Reactions: No Reported Reaction Past Psychological History: No Psychological Hx Reported Smoking Status: Never smoker Past Alcohol Use History: Occasional Past Drug Use History: None Reported - Past Family History Mother Additional Family Medical History / Comment(s): pulmonary fibrosis Father Family Medical History: Myocardial Infarction ([place]) Medications and Allergies Home Medications Medication Instructions Recorded Confirmed Type Aspirin EC [Ecotrin Low Dose] 81 mg PO DAILY 03/25/18 06/08/21 History Metoprolol Tartrate [Lopressor] 12.5 mg PO BID 03/25/18 06/08/21 History Vit C/E/Zn/Coppr/Lutein/Zeaxan 1 cap PO DAILY 03/25/18 06/08/21 History [Preservision Areds 2 Softgel] allopurinoL [Zyloprim] 300 mg PO DAILY 03/25/18 06/08/21 History predniSONE 10 mg PO DAILY #30 tab 11/24/18 06/08/21 Rx Alendronate Sodium 70 mg PO CARDOZA 06/08/21 06/08/21 History Lovastatin [Altoprev] 40 mg PO HS 06/08/21 06/08/21 History Allergies Allergy/AdvReac Type Severity Reaction Status Date / Time No Known Allergies Allergy Verified 06/08/21 08:24 Physical Exam Vitals: Vital Signs Temp Pulse Resp BP Pulse Ox 06/08/21 11:57 90 06/08/21 11:41 90 06/08/21 08:03 96 06/08/21 07:47 102 H 06/08/21 06:07 98.3 F 91 18 131/82 96 06/08/21 04:35 94 06/08/21 04:19 96 06/08/21 03:19 99 06/08/21 03:02 93 06/08/21 01:51 98.2 F 95 22 138/79 93 L Intake and Output 06/07/21 06/08/21 06/08/21 22:59 06:59 14:59 Other: Weight 79.379 kg - Constitutional General appearance: Present: average body habitus, cooperative, no acute distress - EENT Eyes: Present: anicteric sclerae, EOMI, PERRLA, normal appearance ENT: Present: hearing grossly normal, normal oropharynx Ears: bilateral: normal - Neck Neck: Present: normal ROM. Absent: lymphadenopathy, rigidity, thyromegaly Carotids: negative: bruit present Thyroid: bilateral: normal size, negative: enlarged, nodule - Respiratory Respiratory: bilateral: CTA, negative: rales, rhonchi, wheezing - Cardiovascular Rhythm: regular Heart sounds: normal: S1, S2 Abnormal Heart Sounds: Absent: systolic murmur, diastolic murmur - Gastrointestinal General gastrointestinal: Present: normal bowel sounds, soft. Absent: distended, organomegaly, tenderness - Genitourinary Genitourinary Comment(s): deferred - Integumentary Integumentary: Present: normal turgor. Absent: jaundiced, rash, ulcer - Neurologic Neurologic: Present: CNII-XII intact. Absent: focal deficits - Musculoskeletal Musculoskeletal: Present: gait normal, strength equal bilaterally - Psychiatric Psychiatric: Present: A&O x's 3, appropriate affect, intact judgment & insight Results CBC & Chem 7: 06/08/21 02:23 06/08/21 02:23 Labs: Abnormal Lab Results - Last 24 Hours (Table) 06/08/21 06/08/21 06/08/21 Range/Units 02:23 02:23 02:23 WBC 21.0 H (3.8-10.6) k/uL RBC 4.21 L (4.30-5.90) m/uL MCV 101.6 H (80.0-100.0) fL Neutrophils # 17.6 H (1.3-7.7) k/uL Sodium 135 L (137-145) mmol/L Chloride 95 L (98-107) mmol/L Carbon Dioxide 34 H (22-30) mmol/L Glucose 108 H (74-99) mg/dL C-Reactive Protein 1.3 H (<1.0) mg/dL Assessment and Plan Assessment: 1. Acute onset dyspnea; possibly related to worsening pulmonary fibrosis - Chest x-ray done in ED does reveal pulmonary fibrosis; currently uses 5 L of O2 at home - Pulmonary on board and recommending CT angiogram to assess progression of pulmonary fibrosis and to rule out possible PE - Patient has been placed on bronchodilators, IV steroids, Solu-Medrol 60 mg IV every 6 hours and antibiotics in form of Rocephin and azithromycin 2. Chronic hypoxic respiratory failure secondary to pulmonary fibrosis; continue with O2 per nasal cannula keeping O2 saturation greater than 90% 3. Hypertension; metoprolol 25 mg twice a day 4. Hyperlipidemia; lovastatin 20 mg daily at bedtime 5. Coronary artery disease; patient remains on aspirin, beta blockers and statin therapy DVT prophylaxis; SCDs CODE STATUS; full code
[2021-06-08] MEDS ORDERED: MAG HYDROX/AL HYDROX/SIMETH 30 ML, HYOSCYAMINE ELIXIR 10 ML PO ONE ×2 (21:47)
[2021-06-08] MEDS: ATORVASTATIN 10 MG TAB PO SCH (22:59)
[2021-06-09] MEDS: IPRATROPIUM-ALBUTEROL 3 ML NEB INHALATION SCH ×5 (00:52→20:50)
[2021-06-09] MEDS: METOPROLOL TARTRATE 12.5 MG TAB PO SCH ×3 (01:48→21:27)
[2021-06-09] MEDS: SODIUM CHLORIDE 0.9% 1,000 ML IV SCH ×2 (01:55→19:49)
[2021-06-09] MEDS: methylPREDNISolone SOD SUCCI 125 MG/2 ML VIAL IV SCH ×5 (01:55→23:42)
--- NOTE | 2021-06-09 09:06 | XR ---
EXAMINATION TYPE: XR chest 1V DATE OF EXAM: 06/09/2021 COMPARISON: 06/08/2021 HISTORY: Shortness of breath TECHNIQUE: Single frontal view of the chest is obtained. FINDINGS: Diffuse interstitial pattern with honeycombing suggestive of chronic pulmonary fibrosis. P ostoperative changes cardiomegaly. Pleural thickening or small bilateral pleural effusions with no si zable pneumothorax. Right-sided apical pleural thickening. Findings similar to prior exam. IMPRESSION: 1. Diffuse interstitial pattern correlate for pulmonary fibrosis.
[2021-06-09 09:15] LABS: Basophils # (A) 0.02 X 10*3/uL (0.00-0.10); Basophils % (A) 0.1 %; Eosinophils # (A) 0 X 10*3/uL (0.04-0.35); Eosinophils % (A) 0 %; HCT 40.8 % (39.6-50.0); HGB 12.4 g/dL (13.0-17.0); Lymphocytes # (A) 0.59 X 10*3/uL (0.90-5.00); Lymphocytes % (A) 3.4 %; MCH 31.2 pg (27.0-32.0); MCHC 30.4 g/dL (32.0-37.0); MCV 102.5 fL (80.0-97.0); Mean Platelet Volume 10.2 fL (9.5-12.2); Monocytes # (A) 0.37 X 10*3/uL (0.20-1.00); Monocytes % (A) 2.1 %; Neutrophils # (A) 16.25 X 10*3/uL (1.80-7.70); Neutrophils % (A) 93.8 %; Platelet Count 229 X 10*3/uL (140-440); RBC 3.98 X 10*6/uL (4.40-5.60); RDW 13.3 % (11.5-14.5); WBC 17.34 X 10*3/uL (4.50-10.00)
[2021-06-09] MEDS: allopurinoL 300 MG TAB PO SCH (09:32)
[2021-06-09] MEDS: ASPIRIN 81 MG PO SCH (09:32)
[2021-06-09] MEDS: AZITHROMYCIN 500 MG in SODIUM CHLORIDE 0.9% 250 ML IVPB SCH (10:24)
[2021-06-09 12:08] LABS: African American GFR (CKD) 89.9 (60.0-200.0); Albumin 3.9 g/dL (3.80-4.90); Albumin/Globulin Ratio 2.05 (1.60-3.17); Anion Gap 8.4 mmol/L (4.00-12.00); BUN/Creat Ratio 25.56 Ratio (12.00-20.00); Calcium 8.8 mg/dL (8.7-10.3); Carbon Dioxide 31.6 mmol/L (21.6-31.8); Globulin 1.9 g/dL (1.6-3.3); Magnesium 2.4 mg/dL (1.5-2.4); Non-African American GFR(CKD) 77.6 (60.0-200.0); Phosphorus 2.9 mg/dL (2.4-5.1); Potassium 4.9 mmol/L (3.5-5.5); Total Bilirubin 0.4 mg/dL (0.3-1.2); Total Protein 5.8 g/dL (6.2-8.2)
[2021-06-09] MEDS: HEPARIN SODIUM,PORCINE/PF 5,000 UNIT/0.5 ML SYRINGE SQ SCH ×2 (16:32→23:42)
[2021-06-09] MEDS: INSULIN ASPART (NovoLOG) 100 UNIT/ML VIAL SQ SCH ×2 (16:48→21:27)
--- NOTE | 2021-06-09 17:07 | P.PN ---
Subjective Progress Note Date: 06/09/21 06/08/2021, the patient is being seen for a follow-up. He was seen in consultation yesterday for exacerbation of his underlying pulmonary fibrosis/IPF. A CT angiogram was ordered and the patient was found to have any definite pulmonary embolism. There was some issues with motion artifact affecting the interpretation of the CT angios. There was evidence of interstitial lung changes with basilar predominance and honeycombing consistent with IPF/UIP which has progressed since 2019. The tCOVID 19 testing was negative by PCR. Blood work was essentially within normal limits. The patient underwent cycle of 17.3. Hemoglobin was at 12.4. He is afebrile. Pulse ox 95% on 5 L of oxygen by nasal cannula. No other significant events otherwise over the past 24 hours. Objective - Vital Signs Vital signs: Vital Signs Temp 97.7 F 06/09/21 13:40 Pulse 100 06/09/21 16:27 Resp 18 06/09/21 13:40 BP 154/70 06/09/21 13:40 Pulse Ox 95 06/09/21 13:40 Intake & Output 06/08/21 06/09/21 06/09/21 18:59 06:59 18:59 Weight 79.379 kg - Exam - Constitutional General appearance: average body habitus - EENT Eyes: EOMI, PERRLA ENT: hard of hearing Ears: bilateral: normal - Neck Neck: normal ROM, Neck was supple and without jugular venous distension, thyromegaly, or carotid bruits. Carotids were easily palpable bilaterally. There was no adenopathy. Carotids: bilateral: upstroke normal Thyroid: bilateral: normal size - Respiratory Respiratory: bilateral: diminished, rales, course crackles especially in the mid and lower lung mejia bilaterally. - Cardiovascular Rhythm: regular Heart sounds: normal: S1, S2 - Gastrointestinal General gastrointestinal: normal bowel sounds Localized gastrointestinal: tender: diffuse - Integumentary Integumentary: normal turgor, my normal skin - Neurologic Neurologic: CNII-XII intact - Musculoskeletal Musculoskeletal: generalized weakness - Psychiatric Psychiatric: A&O x's 3, intact judgment & insight - Labs CBC & Chem 7: 06/09/21 04:47 06/09/21 04:47 Labs: Abnormal Lab Results - Last 24 Hours (Table) 06/09/21 06/09/21 Range/Units 04:47 04:47 WBC 17.34 H (4.50-10.00) X 10*3/uL RBC 3.98 L (4.40-5.60) X 10*6/uL Hgb 12.4 L (13.0-17.0) g/dL MCV 102.5 H (80.0-97.0) fL MCHC 30.4 L (32.0-37.0) g/dL Immature Gran # 0.11 H (0.00-0.04) X 10*3/uL Neutrophils # 16.25 H (1.80-7.70) X 10*3/uL Lymphocytes # 0.59 L (0.90-5.00) X 10*3/uL Eosinophils # 0 L (0.04-0.35) X 10*3/uL BUN/Creatinine Ratio 25.56 H (12.00-20.00) Ratio Glucose 168 H (70-110) mg/dL Total Protein 5.8 L (6.2-8.2) g/dL Assessment and Plan Plan: 1 acute shortness of breath secondary probably related to worsening in his pulmonary fibrosis. Chest x-ray is consistent with pulmonary fibrosis. The patient's oxidation progressively has gotten worse over the years and currently is on 5 L. It's hard to rule out possibility of a superinfection at this point in time. Pulmonary embolism contiguity to worsening shortness of breath is felt to be less likely. The CTA showed disease progression of pulmonary fibrosis without evidence of any pulmonary embolism. 2 pulmonary fibrosis with chronic hypoxic respiratory failure maintained on 2 L of oxygen nasal cannula 3 rheumatoid arthritis 4 hypertension 5 hyperlipidemia 6 coronary artery disease [address] of the chest showed no evidence of any pulmonary embolism and the patient showed progression of the Larios fibrosis since 2019. Patient is currently on 5 L of oxygen by nasal cannula. The patient is on bronchodilators and steroids. No clear indication for an underlying infection. We'll optimize her fibrosis with seems to be exacerbating at this point in time. We'll continue to follow. Prognosis is essentially poor based on his advanced lung disease.
[2021-06-09 21:07] LABS: Glucose,Whole Blood 218 mg/dL (75-99)
[2021-06-09] MEDS: ATORVASTATIN 10 MG TAB PO SCH (21:27)
[2021-06-10] MEDS: methylPREDNISolone SOD SUCCI 125 MG/2 ML VIAL IV SCH (05:27)
[2021-06-10 06:49] LABS: Glucose,Whole Blood 157 mg/dL (75-99)
[2021-06-10 07:47] VITALS: BP 163/90; RESP 21; TEMP 97.6
[2021-06-10] MEDS: AZITHROMYCIN 500 MG in SODIUM CHLORIDE 0.9% 250 ML IVPB SCH (08:15)
[2021-06-10] MEDS: HEPARIN SODIUM,PORCINE/PF 5,000 UNIT/0.5 ML SYRINGE SQ SCH (08:16)
[2021-06-10] MEDS: INSULIN ASPART (NovoLOG) 100 UNIT/ML VIAL SQ SCH ×2 (08:16→13:15)
[2021-06-10] MEDS: ASPIRIN 81 MG PO SCH (08:17)
[2021-06-10] MEDS: allopurinoL 300 MG TAB PO SCH (08:17)
[2021-06-10] MEDS: METOPROLOL TARTRATE 12.5 MG TAB PO SCH (08:17)
[2021-06-10] MEDS: IPRATROPIUM-ALBUTEROL 3 ML NEB INHALATION SCH ×3 (09:24→15:24)
[2021-06-10 09:27] VITALS: PULSE 98
[2021-06-10 11:02] LABS: Glucose,Whole Blood 150 mg/dL (75-99)
[2021-06-10] MEDS ORDERED: predniSONE 20 MG TAB PO SCH (11:45)
--- NOTE | 2021-06-10 13:30 | P.PN ---
Subjective Progress Note Date: 06/10/21 Principal diagnosis: Dyspnea On today's evaluation on 06/10/2021 patient seen in follow-up. She has remained stable overnight, he is currently on 5 L of oxygen his pulse ox of 90- 94%. His mild dyspneic with conversation, which is chronic. He's had no fever or chills overnight, his CT angiogram did not show any definite pulmonary embolism. There was evidence of interstitial lung changes consistent with IPF/UIP with evidence of progression since 2019. Patient was treated with azithromycin and Rocephin for possibility of pulmonary infection. He's had no fever or chills. Yesterday his labs showed improving with blood cell count which was down to 17.3, hemoglobin was 12.4, electrolytes and renal profile were within normal limits. Objective - Vital Signs Vital signs: Vital Signs Temp 97.6 F 06/10/21 07:46 Pulse 98 06/10/21 09:34 Resp 21 06/10/21 07:46 BP 163/90 06/10/21 07:46 Pulse Ox 94 L 06/10/21 09:27 Intake & Output 06/09/21 06/10/21 06/10/21 18:59 06:59 18:59 Weight 79.379 kg 79.379 kg Other: Voiding Method Urinal Urinal # Voids 2 1 1 # Bowel Movements 1 0 0 - Exam GENERAL EXAM: Alert, very pleasant, 86-year-old white male, 5 L of oxygen and pulse ox of 90-94% comfortable in no apparent distress. HEAD: Normocephalic/atraumatic. EYES: Normal reaction of pupils, equal size. Conjunctiva pink, sclera white. NOSE: Clear with pink turbinates. THROAT: No erythema or exudates. NECK: No masses, no JVD, no thyroid enlargement, no adenopathy. CHEST: No chest wall deformity. Symmetrical expansion. LUNGS: Equal air entry with diffuse crackles CVS: Regular rate and rhythm, normal S1 and S2, no gallops, no murmurs, no rubs ABDOMEN: Soft, nontender. No hepatosplenomegaly, normal bowel sounds, no guar ding or rigidity. EXTREMITIES: No clubbing, no edema, no cyanosis, 2+ pulses and upper and lower extremities. MUSCULOSKELETAL: Muscle strength and tone normal. SPINE: No scoliosis or deformity SKIN: No rashes CENTRAL NERVOUS SYSTEM: Alert and oriented -3. No focal deficits, tone is normal in all 4 extremities. PSYCHIATRIC: Alert and oriented -3. Appropriate affect. Intact judgment and insight. - Labs CBC & Chem 7: 06/09/21 04:47 06/09/21 04:47 Labs: Abnormal Lab Results - Last 24 Hours (Table) 06/09/21 06/10/21 06/10/21 Range/Units 21:04 06:47 11:01 POC Glucose (mg/dL) 218 H 157 H 150 H (75-99) mg/dL Assessment and Plan Plan: 1 acute shortness of breath secondary probably related to worsening in his pulmonary fibrosis. Chest x-ray is consistent with pulmonary fibrosis. The patient's oxidation progressively has gotten worse over the years and currently is on 5 L. It's hard to rule out possibility of a superinfection at this point in time. Pulmonary embolism contiguity to worsening shortness of breath is felt to be less likely. The CTA showed disease progression of pulmonary fibrosis without evidence of any pulmonary embolism. 2 pulmonary fibrosis with chronic hypoxic respiratory failure maintained on 2 L of oxygen nasal cannula 3 rheumatoid arthritis 4 hypertension 5 hyperlipidemia 6 coronary artery disease 7 gout Plan: Patient has remained stable, denies any worsening dyspnea Vital signs have been stable Wean down FiO2 as tolerated No fever or chills Patient states he is close to his baseline, and would like to go home today He can finish outpatient prednisone taper He can finish Levaquin course 5 mg daily for 5 more days No need for breathing treatments He could benefit from low-dose Xanax for anxiety and dyspnea Outpatient follow-up with Dr. Gupta in the office Time with Patient: Less than 30
== END 2021-06-10 15:23 | disposition home health service (06) | DRG 196 ==
LOC: EC 01:39 → 4SSUR 04:10 → 1SOBS 06-09 07:34 → 4SSUR 06-09 19:39
PROVIDERS: ADMIT Hospitalist; ATTEND Hospitalist
DX: J84.112 Idiopathic pulmonary fibrosis (principal); J96.21 Acute and chronic respiratory failure with hypoxia; E78.5 Hyperlipidemia, unspecified; K21.9 Gastro-esophageal reflux disease without esophagitis; D72.829 Elevated white blood cell count, unspecified; I10 Essential (primary) hypertension; I25.10 Atherosclerotic heart disease of native coronary artery without angina pectoris; M06.9 Rheumatoid arthritis, unspecified; Z20.822 Contact with and (suspected) exposure to COVID-19; Z79.02 Long term (current) use of antithrombotics/antiplatelets; Z79.82 Long term (current) use of aspirin; Z79.899 Other long term (current) drug therapy; Z85.828 Personal history of other malignant neoplasm of skin; Z95.1 Presence of aortocoronary bypass graft; Z98.42 Cataract extraction status, left eye; Z98.41 Cataract extraction status, right eye
CPT/HCPCS: 36415; 71045; 71046; 71275; 80053; 83605; 83735; 84100; 84484; 85025; 85610; 85652; 85730; 86140; 87635; 93005; 94640; 94760; 96361; 96365; 96366; 96367; 96375; 99285